=== PATIENT | male | born 1935 | race Hispanic/Latino ===

== ENCOUNTER 2016-12-18 01:47 | Inpatient (IN) | payer MEDICARE ==
[2016-12-18 01:47] VITALS: BMI 30.2
--- NOTE | 2016-12-18 02:17 | C.PDOC ---
History Of Present Illness 81 Y/O MALE BROUGHT IN BY EMS AFTER SUSTAINED FALL AT HOME AT 1900 LAST NIGHT. PT NOTES HE WAS ABLE TO GET UP AFTER SEVERAL HOURS. DENIES HEAD INJURY OR LOC. REPORTS ABRASION TO RIGHT ELBOW. ALSO C/O PRODUCTIVE COUGH FOR 3 DAYS. DENIES FEVER, CHILLS, SOB, CHEST PAIN, NEW WEAKNESS/NUMBNESS, OR OTHER ASSOC SX. DENIES ANY PAIN AT PRESENT. - HPI Time Seen by Provider: 12/18/16 02:11 Chief Complaint (Nursing): Weakness/Neurological Deficit History Per: Patient History/Exam Limitations: no limitations Onset/Duration Of Symptoms: Hrs, Days Location Of Injury: Right: Elbow Recent travel outside of the [place]: No Past Medical History Reviewed: Historical Data, Nursing Documentation, Vital Signs Vital Signs: Last Vital Signs Temp 97.8 F 12/18/16 01:53 Pulse 81 12/18/16 01:53 Resp 18 12/18/16 01:53 BP 161/87 H 12/18/16 01:53 Pulse Ox 93 L 12/18/16 03:09 - Medical History PMH: Anxiety, Benign Prostatic Hyperplasia, CAD, Depression, Diverticulitis, HTN , Hypercholesterolemia, Kidney Stones, Malignancy (Prostate) Surgical History: CABG, Pacemaker (2014) Family History: States: Unknown Family Hx - Social History Hx Tobacco Use: No Hx Alcohol Use: Yes Hx Substance Use: No - Immunization History Hx Tetanus Toxoid Vaccination: No Hx Influenza Vaccination: No Hx Pneumococcal Vaccination: No Review Of Systems Except As Marked, All Systems Reviewed And Found Negative. Constitutional: Negative for: Fever, Chills ENT: Negative for: Throat Pain Respiratory: Positive for: Cough. Negative for: Shortness of Breath Gastrointestinal: Negative for: Nausea, Vomiting, Abdominal Pain Skin: Positive for: Bruising (RIGHT ELBOW). Negative for: Rash Neurological: Negative for: Weakness, Numbness, Dizziness Physical Exam - Physical Exam Appears: Non-toxic, No Acute Distress Skin: Normal Color, Warm, Dry Head: Atraumatic, Normacephalic Eye(s): bilateral: Normal Inspection, PERRL, EOMI Ear(s): Bilateral: Normal Oral Mucosa: Moist Throat: Normal, No Erythema, No Exudate Neck: Supple Chest: Symmetrical Cardiovascular: Rhythm Regular Respiratory: No Accessory Muscle Use, No Rales, Rhonchi (LEFT LOWER LOB), No Wheezing Gastrointestinal/Abdominal: Soft, No Tenderness Back: Normal Inspection Extremity: Normal ROM, Capillary Refill (< 2 SEC. ) Neurological/Psych: Oriented x3, Normal Speech, Normal Cognition ED Course And Treatment - Laboratory Results Result Diagrams: 12/18/16 02:29 12/18/16 02:29 ECG: Interpreted By Me ECG Rhythm: R BBB ECG Interpretation: Abnormal (CHANGED FROM 2016) O2 Sat by Pulse Oximetry: 93 Pulse Ox Interpretation: Abnormal - Radiology CXR: Interpreted by Me CXR Interpretation: Yes: Other (CHF) Progress - Re-Evaluation Re-evaluation Note: 12/18/16 02:17 EKG, CXR, BLOODWORK ORDERED. PELVIS XR ORDERED. - Data Reviewed Data Reviewed: Lab, Diagnostic imaging, EKG, Old records Disposition Counseled Patient/Family Regarding: Studies Performed, Diagnosis - Disposition Disposition: HOSPITALIZED Disposition Time: : Condition: STABLE - POA Present On Arrival: None - Clinical Impression Clinical Impression: CHF exacerbation, Pneumonia - Scribe Statement The provider has reviewed the documentation as recorded by the Nolvia Peter Provider Scribe Attestation: All medical record entries made by the Scribe were at my direction and personally dictated by me. I have reviewed the chart and agree that the record accurately reflects my personal performance of the history, physical exam, medical decision making, and the department course for this patient. I have also personally directed, reviewed, and agree with the discharge instructions and disposition. Decision To Admit - Pt Status Changed To: Hospital Disposition Of: Inpatient - Admit Certification Admit to Inpatient:: After my assessment, the patient will require hospitalization for at least two midnights. This is because of the severity of symptoms shown, intensity of services needed, and/or the medical risk in this patient being treated as an outpatient. - InPatient: Physician Admission Certification: I certify that this patient requires 2 or more midnights of care for the following reason:: SEE NOTE - . Bed Request Type: Telemetry Admitting Physician: Ino Chu Patient Diagnosis: CHF exacerbation, Pneumonia
[2016-12-18 02:36] LABS: BASO # 0.1 K/uL (0.0-0.2); BASO % 0.3 % (0.0-2.0); HEMATOCRIT 45.9 % (35.0-51.0); LYMPH # 0.8 K/uL (1.0-4.3); LYMPH % 4.3 % (20.0-40.0); MEAN CELL VOLUME 87.3 fL (80.0-94.0); MEAN CORPUSCULAR HEMOGLOBIN 28.7 pg (27.0-31.0); MEAN CORPUSCULAR HGB CONC 32.9 g/dL (33.0-37.0); MEAN PLATELET VOLUME 8.5 fL (7.2-11.7); MONO # 2.1 K/uL (0.0-0.8); MONO % 11.5 % (0.0-10.0); PLATELET COUNT 132 K/uL (130-400); RED CELL DISTRIBUTION WIDTH 14.3 % (11.5-14.5); WHITE BLOOD COUNT 17.9 K/uL (4.8-10.8)
[2016-12-18 02:40] LABS: CHLORIDE 101 mmol/L (98-107)
[2016-12-18 02:41] LABS: POTASSIUM 3.7 mmol/L (3.6-5.2); SODIUM 138 mmol/L (132-148)
[2016-12-18 02:43] LABS: GFR AFRICAN-AMERICAN > 60
[2016-12-18 02:44] LABS: ALB/GLOB RATIO 1.2 (1.0-2.1); ALKALINE PHOSPHATASE 64 U/L (38-126); ALT/SGPT 46 U/L (21-72); AST/SGOT 118 U/L (17-59); BILIRUBIN,TOTAL 1.6 mg/dL (0.2-1.3); BLOOD UREA NITROGEN 20 mg/dL (9-20); CALCIUM 8.5 mg/dl (8.6-10.4); CARBON DIOXIDE 22 mmol/L (22-30); GLUCOSE,RANDOM 132 mg/dL (75-110); TOTAL PROTEIN 6.9 g/dL (6.3-8.3)
[2016-12-18] MEDS ORDERED: cefTRIAXone IV 1 gm in Dextros 50 ML IV STA (03:29)
[2016-12-18] MEDS ORDERED: Azithromycin 500 MG in Sodium Chloride 0.9% 250 ML IV STA (03:29)
[2016-12-18] MEDS ORDERED: cefTRIAXone IV 1 gm in Dextros 50 ML IVPB ONE (03:39)
[2016-12-18 03:40] LABS: GRANULAR CAST 10 /lpf (0-1); RBC URINE 23 /hpf (0-3); URINE BACTERIA RARE (<OCC); URINE BILIRUBIN NEGATIVE (NEGATIVE); URINE BLOOD 3+ (NEGATIVE); URINE COLOR Yellow (YELLOW); URINE GLUCOSE (UA) NORMAL (Normal); URINE KETONE 1+ mg/dL (NEGATIVE); URINE LEUKOCYTE ESTERASE NEG Leu/uL (Negative); URINE PROTEIN 2+ mg/dL (NEGATIVE); URINE UROBILINOGEN NORMAL mg/dL (0.2-1.0); WBC URINE 3 /hpf (0-5)
[2016-12-18] MEDS ORDERED: Azithromycin 500mg/250ML NS 500 MG/250 ML BAG IVPB ONE (03:40)
[2016-12-18 04:01] LABS: VENOUS BLOOD GAS BASE EXCESS -0.3 mmol/L (0.0-2.0); VENOUS BLOOD GAS PCO2 32 mmHg (40-60); VENOUS BLOOD PH 7.46 (7.32-7.43)
[2016-12-18 04:14] LABS: NEUTROPHIL 83 % (50-75); TOTAL CELLS COUNTED 100
[2016-12-18 05:56] LABS: VENOUS BLOOD GAS BASE EXCESS -2.6 mmol/L (0.0-2.0); VENOUS BLOOD GAS PCO2 29 mmHg (40-60); VENOUS BLOOD PH 7.45 (7.32-7.43)
[2016-12-18] MEDS ORDERED: Moxifloxacin IV 400mg/250ml NS 400 MG/250 ML BAG IVPB SCH (07:00)
--- NOTE | 2016-12-18 08:35 | RAD ---
PROCEDURE: Radiographs of the pelvis. HISTORY: PAIN COMPARISON: None. FINDINGS: BONES: Pelvic Bones: Osseous whiskering productive hypertrophic changes along each lateral iliac crest and each greater trochanter. Hips: Osteo arthrosis bilateral JOINTS: Sacroiliac Joints: Unremarkable. Pubic Symphysis: Unremarkable. OTHER FINDINGS: Atherosclerotic vascular calcifications. Bilateral inferior facet arthrosis lumbar osteophytosis. Prostatic radiation seeds IMPRESSION: No fracture, radiolucent or blastic lesion appreciated. Degenerative changes. Prostatic radiation seeds
--- NOTE | 2016-12-18 08:49 | RAD ---
HISTORY: Pneumonia COMPARISON: Chest x-ray performed 08/13/15 TECHNIQUE: Chest, one view. FINDINGS: Examination limited by habitus. LUNGS: Mild interstitial prominence may reflect infection or edema. Right perihilar prominence may reflect infiltrate. Please note that chest x-ray has limited sensitivity for the detection of pulmonary masses. PLEURA: No significant pleural effusion identified. No definite pneumothorax . CARDIOVASCULAR: Dual lead left-sided AICD. Heart size borderline enlarged. Atherosclerotic calcifications of the aorta. OSSEOUS STRUCTURES: Degenerative changes of the spine and shoulders. Acromioclavicular arthropathy. VISUALIZED UPPER ABDOMEN: Unremarkable. OTHER FINDINGS: None. IMPRESSION: Mild interstitial prominence may reflect infection or edema. Right perihilar prominence may reflect infiltrate.
[2016-12-18] MEDS ORDERED: Home Med 1 UNIT (Pravastatin Sodium [Pravastatin Sodium] 40 MG) PO SCH (10:00)
[2016-12-18] MEDS ORDERED: Home Med 1 UNIT (Cholecalciferol (Vitamin D3) [Vitamin D3] 2,000 UNIT) PO SCH (10:00)
[2016-12-18] MEDS ORDERED: Ergocalciferol 50,000 Intl Units Cap PO SCH (10:00)
--- NOTE | 2016-12-18 10:25 | CP.PCM.PN ---
Subjective - Date & Time of Evaluation Date of Evaluation: 12/18/16 Time of Evaluation: 09:00 - Subjective Subjective: Medicine Progress Note- Dr. Chu's Service: Patient seen and examined at bedside this AM. Patient admitted overnight s/p fall. He does not know how he fell or why, and states "it's like my legs were pulled from under me". He denies LOC or hitting his head and states he fell backwards holding himself up with his elbows. Patient seen and examined at bedside this morning and is alert and oriented X 3. Patient is originally from [place]. Patient admits to cough and sick contacts. He is also reporting left sided pain where he hit himself during fall. Denies SOB, chest pain, dizziness. Objective - Vital Signs/Intake and Output Vital Signs (last 24 hours): Temp Pulse Resp BP Pulse Ox 98.6 F 60 0 L 122/63 94 L 12/18/16 08:10 12/18/16 08:10 12/18/16 08:10 12/18/16 08:10 12/18/16 08:10 - Medications Medications: Current Medications Amiodarone HCl (Cordarone) 200 mg PO DAILY [facility] Ascorbic Acid (Vitamin C 500 Mg Tab) 500 mg PO DAILY [facility] Aspirin (Aspirin Chewable) 81 mg PO DAILY [facility] Ergocalciferol (Drisdol 50,000 Intl Units Cap) 1 cap PO QWK [facility] Furosemide (Lasix) 40 mg IVP DAILY [facility] Moxifloxacin HCl (Avelox Iv 400mg/250ml Ns) 400 mg in 250 mls @ 167 mls/hr IVPB Q24H [facility] Lisinopril (Zestril) 20 mg PO DAILY [facility] Metoprolol Succinate (Toprol Xl) 25 mg PO DAILY [facility] Neomycin/Polymyxin/Bacitracin (Neosporin Triple Antibiotic Oint) 1 gm TOP DAILY [facility] Rosuvastatin Calcium (Crestor) 5 mg PO DAILY [facility] Tamsulosin HCl (Flomax) 0.4 mg PO DAILY [facility] - Constitutional Appears: No Acute Distress - Head Exam Head Exam: NORMAL INSPECTION, NORMOCEPHALIC - Eye Exam Eye Exam: EOMI, Normal appearance - ENT Exam ENT Exam: Mucous Membranes Moist - Neck Exam Neck Exam: Full ROM, Normal Inspection - Respiratory Exam Respiratory Exam: Clear to Ausculation Bilateral, NORMAL BREATHING PATTERN - Cardiovascular Exam Cardiovascular Exam: REGULAR RHYTHM, +S1, +S2 - GI/Abdominal Exam GI & Abdominal Exam: Soft. absent: Distended, Tenderness - Extremities Exam Extremities Exam: Full ROM, Normal Inspection - Back Exam Back Exam: NORMAL INSPECTION - Neurological Exam Neurological Exam: Alert, Awake, Oriented x3 - Psychiatric Exam Psychiatric exam: Normal Affect, Normal Mood - Skin Skin Exam: Normal Color, Warm Additional comments: Bilateral abrasion Assessment and Plan (1) Fall Assessment & Plan: Admit to telemetry. Pelvis X-ray: shows no fractures. Chest X-ray: shows no fractures. Mild interstitial prominence may reflect infection or edema. Right perihilar prominence may reflect infiltrate. f/u Head CT Cardio consult placed- Dr. Peralta consult placed. Dr. Gacria consulted for defibrillator evaluation. Status: Acute (2) Pneumonia Assessment & Plan: Chest X-ray: shows no fractures. Mild interstitial prominence may reflect infection or edema. Right perihilar prominence may reflect infiltrate. Avelox IVPB-DAY 1 Status: Acute (3) CHF exacerbation Assessment & Plan: Chest X-ray: shows no fractures. Mild interstitial prominence may reflect infection or edema. Right perihilar prominence may reflect infiltrate. BNP: 1490 Toprol XL 25 mg PO daily Lisinopril 20 mg PO daily Cordaone 200 mg PO daily Status: Acute (4) AICD (automatic cardioverter/defibrillator) present Assessment & Plan: Cardio consult placed- Dr. Peralta consult placed. Dr. Garcia consulted for defibrillator evaluation. Status: Acute (5) BPH without urinary obstruction Assessment & Plan: Flomax 0.4 mg PO daily Status: Acute (6) Prophylactic measure Assessment & Plan: Pepcid 20 mg PO BID SCDs Hold AC pending head CT results. Status: Acute - Assessment and Plan (Free Text) Assessment: All management as per Dr. Chu.
[2016-12-18] MEDS: Metoprolol Succinate 25 mg XL Tab PO SCH (10:34)
[2016-12-18 11:23] LABS: BASO % 0.3 % (0.0-2.0); EOS % 0.1 % (0.0-4.0); HEMATOCRIT 45.6 % (35.0-51.0); LYMPH # 1.5 K/uL (1.0-4.3); LYMPH % 9.7 % (20.0-40.0); MEAN CELL VOLUME 87.7 fL (80.0-94.0); MEAN CORPUSCULAR HEMOGLOBIN 28.7 pg (27.0-31.0); MEAN CORPUSCULAR HGB CONC 32.7 g/dL (33.0-37.0); MEAN PLATELET VOLUME 9.1 fL (7.2-11.7); MONO # 1.8 K/uL (0.0-0.8); MONO % 11.7 % (0.0-10.0); PLATELET COUNT 133 K/uL (130-400); RED CELL DISTRIBUTION WIDTH 14.2 % (11.5-14.5); WHITE BLOOD COUNT 15.5 K/uL (4.8-10.8)
[2016-12-18 11:34] LABS: CHLORIDE 100 mmol/L (98-107); POTASSIUM 3.4 mmol/L (3.6-5.2); SODIUM 138 mmol/L (132-148)
[2016-12-18 11:36] LABS: ALB/GLOB RATIO 1.2 (1.0-2.1); ALKALINE PHOSPHATASE 54 U/L (38-126); AST/SGOT 272 U/L (17-59); BILIRUBIN,TOTAL 1.4 mg/dL (0.2-1.3); CARBON DIOXIDE 25 mmol/L (22-30); GFR AFRICAN-AMERICAN > 60; TOTAL PROTEIN 6.6 g/dL (6.3-8.3)
[2016-12-18 11:37] LABS: ALT/SGPT 68 U/L (21-72); BLOOD UREA NITROGEN 22 mg/dL (9-20); GLUCOSE,RANDOM 108 mg/dL (75-110)
[2016-12-18] MEDS: Bacitracin/Neomycin/Polymyxin Oint(30GM) TOP SCH (12:49)
--- NOTE | 2016-12-18 13:20 | CT ---
PROCEDURE: CT HEAD WITHOUT CONTRAST. HISTORY: s/p fall COMPARISON: None available. TECHNIQUE: Axial computed tomography images were obtained through the head/brain without intravenous contrast. Radiation dose: Total exam DLP = 944.74 mGy-cm. This CT exam was performed using one or more of the following dose reduction techniques: Automated exposure control, adjustment of the mA and/or kV according to patient size, and/or use of iterative reconstruction technique. FINDINGS: HEMORRHAGE: No intracranial hemorrhage. BRAIN: Diffuse atrophy with prominence of the ventricles and sulci noted. No mass effect or edema. Intracranial atherosclerotic calcifications. Scattered periventricular and subcortical white matter hypodensities, which are nonspecific, but often seen with chronic microvascular ischemic disease. 3 mm probable chronic lacunar infarct, left basal ganglia. Please note that MRI with diffusion imaging is more sensitive in the detection of acute ischemic event. VENTRICLES: No hydrocephalus. CALVARIUM: Unremarkable. PARANASAL SINUSES: Mucosal thickening, bilateral maxillary sinuses. Extensive opacification of the ethmoid air cells. Mucosal thickening of the bilateral sphenoid sinuses. Mucosal thickening of the right frontal sinus. MASTOID AIR CELLS: Unremarkable as visualized. No inflammatory changes. OTHER FINDINGS: None. IMPRESSION: No acute intracranial pathology identified. Nonspecific white matter changes. 3 mm probable chronic lacunar infarct, left basal ganglia. Generalized atrophy. Mucosal thickening, bilateral maxillary sinuses. Extensive opacification of the ethmoid air cells. Mucosal thickening of the bilateral sphenoid sinuses. Mucosal thickening of the right frontal sinus. Correlate clinically for sinusitis.
--- NOTE | 2016-12-18 13:38 | CP.PCM.CON ---
<Antoine Hammonds - Last Filed: 12/18/16 18:18> History of Present Illness - History of Present Illness History of Present Illness: Cardiology Consultation Note Dr. Garcia CC: "Pre-syncopal symptoms" HPI: This is a 81 year old male with past medical history of CAD (s/p CABG 2013) , Hypertension, ICD placement in 2013, hypercholesterolemia, and BPH/prostate cancer presenting for cardiac evaluation of presyncope and pacemaker interrogation. The patient came to the hospital at 1 a.m. 12/18 after a fall at 7 p.m. that day. He reports no loss of consciousness or head impact during the fall. Patient denies chest pain, palpitations, shortness of breath, and orthopnea. Patient states that he is independent in all ADLs and IADLs and can walk long distances and dress himself without getting SOB. [employer] pacemaker and defibrillator placed in 2013. The patient denies fever, chills, headache, chest pain, shortness of breath, abdominal pain, N/V/D/C, changes in bowel/bladder, and extremity weakness. Today, an echocardiogram was preformed. A preliminary read shows 56% EF. Prior echo on 11/16/13 revealed EF 56% and a grade I relaxation abnormality. An EKG preformed on 01/15/16 shows AV dual paced rhythm with prolonged DC/QTc intervals and a physiologic axis. Past medical history: BPH/Prostate Cancer, CAD, hypertension, hypercholesteremia Social: 27 pack year smoker, quit 27 years ago. Denies drinking and drug use. Surgeries: CABG 2013, pacemaker 2013 Hospitalizations: Misfiring defibrillator 2015 Family history noncontributory Review of Systems - Constitutional Constitutional: Lethargy. absent: Chills, Fatigue, Fever, Headache - EENT Eyes: absent: Blurred Vision, Change in Vision Ears: absent: Ear Discharge, Tinnitus Nose/Mouth/Throat: absent: Nose Pain, Facial Pain, Neck Pain - Cardiovascular Cardiovascular: Syncope (pre-syncopal symptoms). absent: Chest Pain, Chest Pain at Rest, Chest Pain with Activity, Dyspnea, Dyspnea on Exertion, Edema, Leg Edema, Pedal Edema, Rapid Heart Rate - Respiratory Respiratory: Cough. absent: Dyspnea, Dyspnea on Exertion, Pain on Inspiration, Pain with Coughing - Gastrointestinal Gastrointestinal: absent: Abdominal Pain, Change in Bowel Habits, Constipation, Diarrhea, Fecal Incontinence, Nausea, Vomiting - Genitourinary Genitourinary: absent: Change in Urinary Stream, Difficulty Urinating - Musculoskeletal Musculoskeletal: Joint Swelling (due to fall on knees). absent: Stiffness, Tingling - Integumentary Integumentary: absent: Lesions, Rash, Wounds - Neurological Neurological: Syncope (pre-syncopal symptoms ), Tingling. absent: Headaches Additional comments: hands bilaterally - Endocrine Endocrine: absent: Cold Intolorance, Heat Intolorance, Polydipsia, Polyphagia Past Patient History - Infectious Disease Hx of Infectious Diseases: None - Past Medical History & Family History Past Medical History?: Yes - Past Social History Smoking Status: Former Smoker - CARDIAC Hx Hypercholesterolemia: Yes Hx Hypertension: Yes Hx Pacemaker: Yes (2013) - RENAL Hx Kidney Stones: Yes - MUSCULOSKELETAL/RHEUMATOLOGICAL Hx Falls: No - GASTROINTESTINAL Hx Diverticulitis: Yes - GENITOURINARY/GYNECOLOGICAL Hx Prostate Cancer: Yes (tx with radiation) - PSYCHIATRIC Hx Anxiety: Yes Hx Depression: Yes Hx Substance Use: No - SURGICAL HISTORY Hx Coronary Artery Bypass Graft: Yes - ANESTHESIA Hx Anesthesia: Yes Hx Anesthesia Reactions: No Hx Malignant Hyperthermia: No Meds Allergies/Adverse Reactions: Allergies Allergy/AdvReac Type Severity Reaction Status Date / Time No Known Allergies Allergy Verified 01/27/16 15:37 - Medications Medications: Current Medications Amiodarone HCl (Cordarone) 200 mg PO DAILY [facility] Last Admin: 12/18/16 10:34 Dose: 200 mg Ascorbic Acid (Vitamin C 500 Mg Tab) 500 mg PO DAILY [facility] Last Admin: 12/18/16 10:34 Dose: 500 mg Aspirin (Aspirin Chewable) 81 mg PO DAILY [facility] Last Admin: 12/18/16 10:34 Dose: 81 mg Ergocalciferol (Drisdol 50,000 Intl Units Cap) 1 cap PO QWK [facility] Last Admin: 12/18/16 10:34 Dose: 1 cap Famotidine (Pepcid) 20 mg PO BID [facility] Furosemide (Lasix) 40 mg IVP DAILY [facility] Last Admin: 12/18/16 10:35 Dose: 40 mg Moxifloxacin HCl (Avelox Iv 400mg/250ml Ns) 400 mg in 250 mls @ 167 mls/hr IVPB Q24H [facility] Last Admin: 12/18/16 11:23 Dose: 167 mls/hr Lisinopril (Zestril) 20 mg PO DAILY [facility] Metoprolol Succinate (Toprol Xl) 25 mg PO DAILY [facility] Last Admin: 12/18/16 10:34 Dose: 25 mg Neomycin/Polymyxin/Bacitracin (Neosporin Triple Antibiotic Oint) 1 gm TOP DAILY [facility] Last Admin: 12/18/16 12:49 Dose: 1 applic Rosuvastatin Calcium (Crestor) 5 mg PO DAILY [facility] Last Admin: 12/18/16 11:45 Dose: 5 mg Tamsulosin HCl (Flomax) 0.4 mg PO DAILY [facility] Last Admin: 12/18/16 10:35 Dose: Not Given Physical Exam - Constitutional Appears: Non-toxic, No Acute Distress - Head Exam Head Exam: ATRAUMATIC, NORMAL INSPECTION, NORMOCEPHALIC - Eye Exam Eye Exam: Normal appearance. absent: Nystagmus Pupil Exam: NORMAL ACCOMODATION - ENT Exam ENT Exam: Mucous Membranes Moist - Neck Exam Neck exam: Positive for: Full Rom, Normal Inspection. Negative for: Lymphadenopathy, Tenderness - Respiratory Exam Respiratory Exam: Decreased Breath Sounds (b/l bases), Clear to Auscultation Bilateral, NORMAL BREATHING PATTERN. absent: Accessory Muscle Use, Rales, Rhonchi, Wheezes - Cardiovascular Exam Cardiovascular Exam: REGULAR RHYTHM, RRR, +S1, +S2. absent: Bradycardia, Tachycardia, Diastolic murmur, Irregular Rhythm, JVD, Rubs, Systolic Murmur - GI/Abdominal Exam GI & Abdominal Exam: Normal Bowel Sounds, Soft. absent: Distended, Firm, Guarding, Tenderness - Extremities Exam Extremities exam: Positive for: joint swelling, normal inspection, pedal pulses present. Negative for: calf tenderness, pedal edema Additional comments: knees bilaterally - Back Exam Back exam: NORMAL INSPECTION. absent: CVA tenderness (L), CVA tenderness (R) - Neurological Exam Neurological exam: Alert, CN II-XII Intact, Oriented x3 - Psychiatric Exam Psychiatric exam: Normal Affect, Normal Mood - Skin Skin Exam: Dry, Intact, Normal Color Results - Vital Signs Recent Vital Signs: Last Vital Signs Temp 98.6 F 12/18/16 08:10 Pulse 60 12/18/16 08:10 Resp 0 L 12/18/16 08:10 BP 122/63 12/18/16 10:35 Pulse Ox 94 L 12/18/16 08:10 - Labs Result Diagrams: 12/18/16 11:14 12/18/16 11:14 Labs: Laboratory Results - last 24 hr 12/18/16 12/18/16 12/18/16 03:53 05:46 11:14 WBC 15.5 H RBC 5.20 Hgb 14.9 Hct 45.6 MCV 87.7 MCH 28.7 MCHC 32.7 L RDW 14.2 Plt Count 133 MPV 9.1 Neut % (Auto) 78.2 H Lymph % (Auto) 9.7 L Deuel % (Auto) 11.7 H Eos % (Auto) 0.1 Baso % (Auto) 0.3 Neut # 12.2 H Lymph # 1.5 Deuel # 1.8 H Eos # 0.0 Baso # 0.0 Puncture Site Na pO2 60 H 66 H Darian Test Na VBG pH 7.46 H 7.45 H VBG pCO2 32 L 29 L VBG HCO3 24.5 22.8 VBG Total CO2 21.1 L VBG O2 Sat (Calc) 92.7 H 95.3 H VBG Base Excess -0.3 L -2.6 L VBG Potassium 2.5 L* Sodium 140.0 Chloride 110.0 H Glucose 101 Lactate 1.1 Crit Value Called To Farheen zimmerman rn Crit Value Called By Rebecca guerrier rt Crit Value Read Back Y Blood Gas Notified Time 558 Potassium Carbon Dioxide Anion Gap BUN Creatinine Est GFR ( Amer) Est GFR (Non-Af Amer) Random Glucose Calcium Total Bilirubin AST ALT Alkaline Phosphatase Total Protein Albumin Globulin Albumin/Globulin Ratio Venous Blood Potassium 2.5 L* 12/18/16 11:14 WBC RBC Hgb Hct MCV MCH MCHC RDW Plt Count MPV Neut % (Auto) Lymph % (Auto) Deuel % (Auto) Eos % (Auto) Baso % (Auto) Neut # Lymph # Deuel # Eos # Baso # Puncture Site pO2 Darian Test VBG pH VBG pCO2 VBG HCO3 VBG Total CO2 VBG O2 Sat (Calc) VBG Base Excess VBG Potassium Sodium 138 Chloride 100 Glucose Lactate Crit Value Called To Crit Value Called By Crit Value Read Back Blood Gas Notified Time Potassium 3.4 L Carbon Dioxide 25 Anion Gap 16 BUN 22 H Creatinine 1.0 Est GFR ( Amer) > 60 Est GFR (Non-Af Amer) > 60 Random Glucose 108 Calcium 8.0 L Total Bilirubin 1.4 H AST 272 H D ALT 68 Alkaline Phosphatase 54 Total Protein 6.6 Albumin 3.5 Globulin 3.1 Albumin/Globulin Ratio 1.2 Venous Blood Potassium Assessment & Plan (1) Syncope, near Assessment and Plan: Interrogate ICD ([employer]) at Bedside Order Orthostatics vital signs with HR Troponins X 3 (q8 hours) with EKGs Telemetric Monitoring Nuclear Stress Test in AM Troponin elevated 0.1310. Continue to trend. If troponins continue to rise cancel nuclear stress test and will go for cath. if trops stay same, nuclear stress in am. Dr. Peralta will preform either stress test or Cath. NPO after midnight 12/18/16 CXR- Left sided ICD wires traced to right atrium unchanged from prior film (08/13/15). Mild interstitial prominence may reflect infection or edema. Right perihilar prominence may reflect infiltrate. 12/18/16 Echo- A preliminary read shows 56% EF 11/16/13 Echo- revealed EF 56% and a grade I relaxation abnormality. 01/15/16 EKG- AV dual paced rhythm with prolonged DC/QTc intervals and a physiologic axis. Case Discussed with Dr. Radha Hammonds PGY1 Status: Acute - Date & Time Date: 12/18/16 Time: 15:59 <Milvia Garcia - Last Filed: 01/15/17 10:15> Results - Vital Signs Recent Vital Signs: Last Vital Signs Temp 98 F 12/20/16 07:00 Pulse 50 L 12/20/16 07:00 Resp 20 12/20/16 07:00 BP 132/70 12/20/16 09:05 Pulse Ox 96 12/20/16 07:00 - Labs Result Diagrams: 12/20/16 07:01 12/20/16 07:01 Attending/Attestation - Attestation I have personally seen and examined this patient.: Yes I have fully participated in the care of the patient.: Yes I have reviewed all pertinent clinical information: Yes Notes (Text): 01/15/17 10:14 Will interrogate ICD may need cath vs stress
[2016-12-18 13:42] LABS: NEUTROPHIL 78 % (50-75); TOTAL CELLS COUNTED 100
[2016-12-18 16:23] VITALS: RESP 20
--- NOTE | 2016-12-18 17:34 | CARD ---
APPROVED REPORT EXAM: Two-dimensional and M-mode echocardiogram with Doppler and color Doppler. Other Information Quality : GoodRhythm : NSR INDICATION CAD Congestive Heart Failure Surgery/Intervention Pacemaker: CABG: RISK FACTORS Hypertension Hyperlipidemia M-Mode DIMENSIONS RVDd2.69 (2.1-3.2cm)Left Atrium (MM)4.84 (2.5-4.0cm) IVSd1.25 (0.7-1.1cm)Aortic Root3.51 (2.2-3.7cm) LVDd5.78 (4.0-5.6cm)Aortic Cusp Exc.1.76 (1.5-2.0cm) PWd1.13 (0.7-1.1cm)FS (%) 30 % LVDs4.06 (2.0-3.8cm)LVEF (%)56 (>50%) Aortic Valve AoV Peak Xrwyizzu546.4cm/Ann Peak GR.11mmHg Mitral Valve MV E Wlwxgjkl12.7cm/sMV A Lksncqda36.3cm/sE/A ratio0.7 TDI E/Lateral E'0.0E/Medial E'0.0 Tricuspid Valve TR Peak [id number]/sTR Peak Gr.[id number] LEFT VENTRICLE There is normal left ventricular wall thickness. The left ventricular systolic function is normal. The left ventricular ejection fraction is within the normal range. There is mild hypokinesis in the mid-inferior wall suggestive of coronary heart disease. Transmitral Doppler flow pattern is Grade I-abnormal relaxation pattern. RIGHT VENTRICLE The right ventricle is normal size. The right ventricular systolic function is normal. There is a pacemaker lead in the right ventricle. ATRIA The left atrium is mildly dilated. The right atrium is borderline dilated. A pacemaker is seen in the right atrium. AORTIC VALVE The aortic valve is normal in structure. No aortic regurgitation is present. MITRAL VALVE The mitral valve is normal in structure. There is no mitral valve regurgitation noted. TRICUSPID VALVE The tricuspid valve is normal in structure. There is trace to mild tricuspid regurgitation. PULMONIC VALVE There is trace pulmonic valvular regurgitation. GREAT VESSELS The aortic root is normal in size. The IVC was not well visualized. PERICARDIAL EFFUSION There is no pericardial effusion. <Conclusion> The left ventricular systolic function is normal. There is mild hypokinesis in the mid-inferior wall suggestive of coronary heart disease. Transmitral Doppler flow pattern is Grade I-abnormal relaxation pattern. The right ventricular systolic function is normal. The left atrium is mildly dilated. Pacemaker wires seen in the right heart. There is no pericardial effusion.
[2016-12-18] MEDS ORDERED: Potassium Chloride 20 mEq ER Tab PO ONE (19:55)
--- NOTE | 2016-12-18 21:47 | CP.PCM.CON ---
History of Present Illness - History of Present Illness History of Present Illness: Patient seen and evaluated Dyspnea and dizziness Trops 0.13 Stress test in am Past Patient History - Infectious Disease Hx of Infectious Diseases: None - Past Medical History & Family History Past Medical History?: Yes - Past Social History Smoking Status: Former Smoker - CARDIAC Hx Hypercholesterolemia: Yes Hx Hypertension: Yes Hx Pacemaker: Yes (2013) - PULMONARY Hx Respiratory Disorders: No - NEUROLOGICAL Hx Neurological Disorder: No - HEENT Hx HEENT Problems: No - RENAL Hx Kidney Stones: Yes - ENDOCRINE/METABOLIC Hx Endocrine Disorders: No - HEMATOLOGICAL/ONCOLOGICAL Hx Blood Disorders: No - INTEGUMENTARY Hx Dermatological Problems: No - MUSCULOSKELETAL/RHEUMATOLOGICAL Hx Falls: No - GASTROINTESTINAL Hx Diverticulitis: Yes - GENITOURINARY/GYNECOLOGICAL Hx Prostate Cancer: Yes (tx with radiation) - PSYCHIATRIC Hx Anxiety: Yes Hx Depression: Yes Hx Substance Use: No - SURGICAL HISTORY Hx Coronary Artery Bypass Graft: Yes - ANESTHESIA Hx Anesthesia: Yes Hx Anesthesia Reactions: No Hx Malignant Hyperthermia: No Meds Allergies/Adverse Reactions: Allergies Allergy/AdvReac Type Severity Reaction Status Date / Time No Known Allergies Allergy Verified 01/27/16 15:37 - Medications Medications: Current Medications Amiodarone HCl (Cordarone) 200 mg PO DAILY [facility] Last Admin: 12/18/16 10:34 Dose: 200 mg Ascorbic Acid (Vitamin C 500 Mg Tab) 500 mg PO DAILY [facility] Last Admin: 12/18/16 10:34 Dose: 500 mg Aspirin (Aspirin Chewable) 81 mg PO DAILY [facility] Last Admin: 12/18/16 10:34 Dose: 81 mg Ergocalciferol (Drisdol 50,000 Intl Units Cap) 1 cap PO QWK [facility] Last Admin: 12/18/16 10:34 Dose: 1 cap Famotidine (Pepcid) 20 mg PO BID [facility] Last Admin: 12/18/16 20:44 Dose: 20 mg Furosemide (Lasix) 40 mg IVP DAILY [facility] Last Admin: 12/18/16 10:35 Dose: 40 mg Moxifloxacin HCl (Avelox Iv 400mg/250ml Ns) 400 mg in 250 mls @ 167 mls/hr IVPB Q24H [facility] Last Admin: 12/18/16 11:23 Dose: 167 mls/hr Lisinopril (Zestril) 20 mg PO DAILY [facility] Metoprolol Succinate (Toprol Xl) 25 mg PO DAILY [facility] Last Admin: 12/18/16 10:34 Dose: 25 mg Neomycin/Polymyxin/Bacitracin (Neosporin Triple Antibiotic Oint) 1 gm TOP DAILY [facility] Last Admin: 12/18/16 12:49 Dose: 1 applic Rosuvastatin Calcium (Crestor) 5 mg PO DAILY [facility] Last Admin: 12/18/16 11:45 Dose: 5 mg Tamsulosin HCl (Flomax) 0.4 mg PO DAILY [facility] Last Admin: 12/18/16 10:35 Dose: Not Given Results - Vital Signs Recent Vital Signs: Last Vital Signs Temp 98 F 12/18/16 15:45 Pulse 56 L 12/18/16 15:45 Resp 20 12/18/16 15:45 BP 99/58 L 12/18/16 15:45 Pulse Ox 93 L 12/18/16 15:45 - Labs Result Diagrams: 12/18/16 11:14 12/18/16 11:14 Labs: Laboratory Results - last 24 hr 12/18/16 12/18/16 12/18/16 03:53 05:46 11:14 WBC 15.5 H RBC 5.20 Hgb 14.9 Hct 45.6 MCV 87.7 MCH 28.7 MCHC 32.7 L RDW 14.2 Plt Count 133 MPV 9.1 Neut % (Auto) 78.2 H Lymph % (Auto) 9.7 L Martin % (Auto) 11.7 H Eos % (Auto) 0.1 Baso % (Auto) 0.3 Neut # 12.2 H Lymph # 1.5 Martin # 1.8 H Eos # 0.0 Baso # 0.0 Neutrophils % (Manual) 78 H Band Neutrophils % 5 H Lymphocytes % (Manual) 7 L Monocytes % (Manual) 10 Platelet Estimate Normal RBC Morphology Normal Puncture Site Na pO2 60 H 66 H Darian Test Na VBG pH 7.46 H 7.45 H VBG pCO2 32 L 29 L VBG HCO3 24.5 22.8 VBG Total CO2 21.1 L VBG O2 Sat (Calc) 92.7 H 95.3 H VBG Base Excess -0.3 L -2.6 L VBG Potassium 2.5 L* Sodium 140.0 Chloride 110.0 H Glucose 101 Lactate 1.1 Crit Value Called To Farheen cavello rn Crit Value Called By Rebecca guerrier rt Crit Value Read Back Y Blood Gas Notified Time 558 Potassium Carbon Dioxide Anion Gap BUN Creatinine Est GFR ( Amer) Est GFR (Non-Af Amer) Random Glucose Calcium Total Bilirubin AST ALT Alkaline Phosphatase Total Creatine Kinase CK-MB (Mass) Troponin I, Quant Total Protein Albumin Globulin Albumin/Globulin Ratio Venous Blood Potassium 2.5 L* 12/18/16 12/18/16 11:14 17:12 WBC RBC Hgb Hct MCV MCH MCHC RDW Plt Count MPV Neut % (Auto) Lymph % (Auto) Martin % (Auto) Eos % (Auto) Baso % (Auto) Neut # Lymph # Martin # Eos # Baso # Neutrophils % (Manual) Band Neutrophils % Lymphocytes % (Manual) Monocytes % (Manual) Platelet Estimate RBC Morphology Puncture Site pO2 Darian Test VBG pH VBG pCO2 VBG HCO3 VBG Total CO2 VBG O2 Sat (Calc) VBG Base Excess VBG Potassium Sodium 138 Chloride 100 Glucose Lactate Crit Value Called To Crit Value Called By Crit Value Read Back Blood Gas Notified Time Potassium 3.4 L Carbon Dioxide 25 Anion Gap 16 BUN 22 H Creatinine 1.0 Est GFR ( Amer) > 60 Est GFR (Non-Af Amer) > 60 Random Glucose 108 Calcium 8.0 L Total Bilirubin 1.4 H AST 272 H D ALT 68 Alkaline Phosphatase 54 Total Creatine Kinase 73254 H CK-MB (Mass) 5.57 H Troponin I, Quant 0.1310 H* Total Protein 6.6 Albumin 3.5 Globulin 3.1 Albumin/Globulin Ratio 1.2 Venous Blood Potassium
[2016-12-19] MEDS: Metoprolol Succinate 25 mg XL Tab PO SCH (10:49)
[2016-12-19 11:22] LABS: BASO % 0.1 % (0.0-2.0); EOS # 0.1 K/uL (0.0-0.7); EOS % 0.6 % (0.0-4.0); HEMATOCRIT 43.8 % (35.0-51.0); LYMPH # 1.5 K/uL (1.0-4.3); LYMPH % 15.9 % (20.0-40.0); MEAN CELL VOLUME 87.6 fL (80.0-94.0); MEAN CORPUSCULAR HGB CONC 33.2 g/dL (33.0-37.0); MEAN PLATELET VOLUME 8.9 fL (7.2-11.7); MONO # 1.2 K/uL (0.0-0.8); MONO % 12.6 % (0.0-10.0); RED CELL DISTRIBUTION WIDTH 14.3 % (11.5-14.5); WHITE BLOOD COUNT 9.7 K/uL (4.8-10.8)
[2016-12-19 11:42] LABS: CHLORIDE 101 mmol/L (98-107)
[2016-12-19 11:43] LABS: POTASSIUM 3.9 mmol/L (3.6-5.2); SODIUM 137 mmol/L (132-148)
[2016-12-19 11:45] LABS: ALB/GLOB RATIO 1.1 (1.0-2.1); AST/SGOT 295 U/L (17-59); CARBON DIOXIDE 23 mmol/L (22-30); GFR AFRICAN-AMERICAN > 60; TOTAL PROTEIN 6.5 g/dL (6.3-8.3)
[2016-12-19 11:46] LABS: ALKALINE PHOSPHATASE 52 U/L (38-126); ALT/SGPT 75 U/L (21-72); BLOOD UREA NITROGEN 29 mg/dL (9-20); CALCIUM 8.4 mg/dl (8.6-10.4); GLUCOSE,RANDOM 144 mg/dL (75-110); MAGNESIUM 2.2 mg/dL (1.6-2.3)
--- NOTE | 2016-12-19 12:05 | CARD ---
APPROVED REPORT EKG Measurement Heart [id number] <Conclusion> Normal sinus rhythm Right bundle branch block Abnormal ECG
[2016-12-19] MEDS: Moxifloxacin IV 400mg/250ml NS 400 MG/250 ML BAG IVPB SCH (12:07)
--- NOTE | 2016-12-19 14:06 | CP.PCM.PN ---
Subjective - Date & Time of Evaluation Date of Evaluation: 12/19/16 Time of Evaluation: 09:00 - Subjective Subjective: Medicine Progress Note- Dr. Chu's Service: Patient seen and examined at bedside this morning. Patient has no chest pain, SOB, fevers, chills today. He is scheduled for 2nd phase of stress test this AM. Patient with one elevated troponin overnight. However, patient denies chest pain overnight or any acute distress. Objective - Vital Signs/Intake and Output Vital Signs (last 24 hours): Temp Pulse Resp BP Pulse Ox 98.1 F 50 L 20 150/75 95 12/19/16 08:44 12/19/16 08:44 12/19/16 08:44 12/19/16 12:09 12/19/16 08:44 - Medications Medications: Current Medications Amiodarone HCl (Cordarone) 200 mg PO DAILY [facility] Last Admin: 12/19/16 10:49 Dose: 200 mg Ascorbic Acid (Vitamin C 500 Mg Tab) 500 mg PO DAILY [facility] Last Admin: 12/19/16 10:52 Dose: 500 mg Aspirin (Aspirin Chewable) 81 mg PO DAILY [facility] Last Admin: 12/19/16 10:51 Dose: 81 mg Ergocalciferol (Drisdol 50,000 Intl Units Cap) 1 cap PO QWK [facility] Last Admin: 12/18/16 10:34 Dose: 1 cap Famotidine (Pepcid) 20 mg PO BID [facility] Last Admin: 12/19/16 10:49 Dose: 20 mg Furosemide (Lasix) 40 mg IVP DAILY [facility] Last Admin: 12/19/16 12:09 Dose: 40 mg Heparin Sodium (Porcine) (Heparin) 5,000 units SC Q12 [facility] Last Admin: 12/19/16 12:08 Dose: 5,000 units Moxifloxacin HCl (Avelox Iv 400mg/250ml Ns) 400 mg in 250 mls @ 167 mls/hr IVPB Q24H [facility] Last Admin: 12/19/16 12:07 Dose: 167 mls/hr Lisinopril (Zestril) 20 mg PO DAILY [facility] Last Admin: 12/19/16 10:51 Dose: 20 mg Metoprolol Succinate (Toprol Xl) 25 mg PO DAILY [facility] Last Admin: 12/19/16 10:49 Dose: 25 mg Neomycin/Polymyxin/Bacitracin (Neosporin Triple Antibiotic Oint) 1 gm TOP DAILY [facility] Last Admin: 12/18/16 12:49 Dose: 1 applic Pneumococcal Polyvalent Vaccine (Pneumovax 23 Vaccine) 0.5 ml IM .ONCE ONE Stop: 12/20/16 10:01 Rosuvastatin Calcium (Crestor) 5 mg PO DAILY [facility] Last Admin: 12/19/16 10:52 Dose: 5 mg Tamsulosin HCl (Flomax) 0.4 mg PO DAILY [facility] Last Admin: 12/19/16 12:10 Dose: 0.4 mg - Labs Labs: 12/19/16 11:09 12/19/16 11:09 - Constitutional Appears: No Acute Distress - Head Exam Head Exam: NORMAL INSPECTION, NORMOCEPHALIC - Eye Exam Eye Exam: EOMI, Normal appearance - ENT Exam ENT Exam: Mucous Membranes Moist - Neck Exam Neck Exam: Full ROM - Respiratory Exam Respiratory Exam: Clear to Ausculation Bilateral, NORMAL BREATHING PATTERN - Cardiovascular Exam Cardiovascular Exam: REGULAR RHYTHM, +S1, +S2 - GI/Abdominal Exam GI & Abdominal Exam: Soft. absent: Distended, Tenderness - Extremities Exam Extremities Exam: Full ROM, Normal Inspection - Neurological Exam Neurological Exam: Alert, Oriented x3 - Psychiatric Exam Psychiatric exam: Normal Affect, Normal Mood - Skin Skin Exam: Normal Color, Warm Assessment and Plan - Assessment and Plan (Free Text) Assessment: (1) Fall Assessment & Plan: Admit to telemetry. Pelvis X-ray: shows no fractures. Chest X-ray: shows no fractures. Mild interstitial prominence may reflect infection or edema. Right perihilar prominence may reflect infiltrate. Head CT: Mucosal thickening, bilateral maxillary sinuses. Extensive opacification of the ethmoid air cells. Mucosal thickening of the bilateral sphenoid sinuses. Mucosal thickening of the right frontal sinus. Correlate clinically for sinusitis. Cardio consult placed- Dr. Peralta consult placed. Dr. Garcia consulted for defibrillator evaluation. Status: Acute (2) Pneumonia Assessment & Plan: Chest X-ray: shows no fractures. Mild interstitial prominence may reflect infection or edema. Right perihilar prominence may reflect infiltrate. Avelox IVPB-DAY 2 Status: Acute (3) CHF exacerbation Assessment & Plan: Telemetric Monitoring Chest X-ray: shows no fractures. Mild interstitial prominence may reflect infection or edema. Right perihilar prominence may reflect infiltrate. BNP: 1490 Toprol XL 25 mg PO daily Lisinopril 20 mg PO daily Cordaone 200 mg PO daily Nuclear Stress Test today Troponin elevated 0.1310, 0.0670, 0.0440 Dr. Peralta will preform either stress test or Cath. Status: Acute (4) AICD (automatic cardioverter/defibrillator) present Assessment & Plan: Cardio consult placed- Dr. Peralta consult placed. Dr. Garcia consulted for defibrillator evaluation. Interrogate ICD ([employer]) at Bedside Order [employer] vital signs with HR Status: Acute (5) BPH without urinary obstruction Assessment & Plan: Flomax 0.4 mg PO daily Status: Acute (6) Prophylactic measure Assessment & Plan: Pepcid 20 mg PO BID SCDs HSQ Q12H Status: Acute - Assessment and Plan (Free Text) Assessment: All management as per Dr. Chu.
--- NOTE | 2016-12-19 14:56 | CP.PCM.PN ---
<Antoine Hammonds - Last Filed: 12/19/16 16:20> Subjective - Date & Time of Evaluation Date of Evaluation: 12/19/16 Time of Evaluation: 16:20 - Subjective Subjective: Cardiology Progress Note Dr. Garcia Patient seen and examined at the bedside. No acute distress. No acute events overnight. Nursing staff reports no issues. No complaints this morning. No interval change from prior examination. 12 point review of systems negative for all acute complaints. The patient had a nuclear stress test this morning. The patient had his ICD interrogated at the bedside today as well. Objective - Vital Signs/Intake and Output Vital Signs (last 24 hours): Temp Pulse Resp BP Pulse Ox 98.1 F 50 L 20 150/75 95 12/19/16 08:44 12/19/16 08:44 12/19/16 08:44 12/19/16 12:09 12/19/16 08:44 - Medications Medications: Current Medications Amiodarone HCl (Cordarone) 200 mg PO DAILY [facility] Last Admin: 12/19/16 10:49 Dose: 200 mg Ascorbic Acid (Vitamin C 500 Mg Tab) 500 mg PO DAILY [facility] Last Admin: 12/19/16 10:52 Dose: 500 mg Aspirin (Aspirin Chewable) 81 mg PO DAILY [facility] Last Admin: 12/19/16 10:51 Dose: 81 mg Ergocalciferol (Drisdol 50,000 Intl Units Cap) 1 cap PO QWK [facility] Last Admin: 12/18/16 10:34 Dose: 1 cap Famotidine (Pepcid) 20 mg PO BID [facility] Last Admin: 12/19/16 10:49 Dose: 20 mg Furosemide (Lasix) 40 mg IVP DAILY [facility] Last Admin: 12/19/16 12:09 Dose: 40 mg Heparin Sodium (Porcine) (Heparin) 5,000 units SC Q12 [facility] Last Admin: 12/19/16 12:08 Dose: 5,000 units Moxifloxacin HCl (Avelox Iv 400mg/250ml Ns) 400 mg in 250 mls @ 167 mls/hr IVPB Q24H [facility] Last Admin: 12/19/16 12:07 Dose: 167 mls/hr Lisinopril (Zestril) 20 mg PO DAILY [facility] Last Admin: 12/19/16 10:51 Dose: 20 mg Metoprolol Succinate (Toprol Xl) 25 mg PO DAILY [facility] Last Admin: 12/19/16 10:49 Dose: 25 mg Neomycin/Polymyxin/Bacitracin (Neosporin Triple Antibiotic Oint) 1 gm TOP DAILY [facility] Last Admin: 12/18/16 12:49 Dose: 1 applic Pneumococcal Polyvalent Vaccine (Pneumovax 23 Vaccine) 0.5 ml IM .ONCE ONE Stop: 12/20/16 10:01 Rosuvastatin Calcium (Crestor) 5 mg PO DAILY [facility] Last Admin: 12/19/16 10:52 Dose: 5 mg Tamsulosin HCl (Flomax) 0.4 mg PO DAILY [facility] Last Admin: 12/19/16 12:10 Dose: 0.4 mg - Labs Labs: 12/19/16 11:09 12/19/16 11:09 - Additional Findings Additional findings: - Constitutional Appears: Non-toxic, No Acute Distress - Head Exam Head Exam: ATRAUMATIC, NORMAL INSPECTION, NORMOCEPHALIC - Eye Exam Eye Exam: Normal appearance. absent: Nystagmus Pupil Exam: NORMAL ACCOMODATION - ENT Exam ENT Exam: Mucous Membranes Moist - Neck Exam Neck exam: Positive for: Full Rom, Normal Inspection. Negative for: Lymphadenopathy, Tenderness - Respiratory Exam Respiratory Exam: Clear to Auscultation Bilateral, NORMAL BREATHING PATTERN. absent: Accessory Muscle Use, Rales, Rhonchi, Wheezes - Cardiovascular Exam Cardiovascular Exam: REGULAR RHYTHM, RRR, +S1, +S2. absent: Bradycardia, Tachycardia, Diastolic murmur, Irregular Rhythm, JVD, Rubs, Systolic Murmur - GI/Abdominal Exam GI & Abdominal Exam: Normal Bowel Sounds, Soft. absent: Distended, Firm, Guarding, Tenderness - Extremities Exam Extremities exam: Positive for: normal inspection, pedal pulses present. Negative for: calf tenderness, pedal edema - Back Exam Back exam: NORMAL INSPECTION. absent: CVA tenderness (L), CVA tenderness (R) - Neurological Exam Neurological exam: Alert, CN II-XII Intact, Oriented x3 - Psychiatric Exam Psychiatric exam: Normal Affect, Normal Mood - Skin Skin Exam: Dry, Intact, Normal Color Assessment and Plan (1) Syncope, near Assessment & Plan: Interrogated ICD ([facility]) at Bedside- Battery like 8.5 years. Last incident November 06, 2016, no shock needed. Device functioning well Negative orthostatic vital signs Trpoonin: 0.1310 > 0.0670 > 0.0440 Telemetric Monitoring Nuclear Stress Test- normal response to lexiscan stress test. nuclear imaging report pending 12/18/16 EKG- normal sinus rhythm, normal AR interval, prolonged QRS duration and QTc interval, physiologic axis, RBBB, no acute ST or T wave changes 12/18/16 Echo- 56% EF. Mild hypokenesis in the mid-inferior wall (suggestive of CAD), Grade I abnormal relaxation pattern 12/18/16 CXR- Left sided ICD wires traced to right atrium unchanged from prior film (08/13/15). Mild interstitial prominence may reflect infection or edema. Right perihilar prominence may reflect infiltrate. 11/16/13 Echo- revealed EF 56% and a grade I relaxation abnormality. 01/15/16 EKG- AV dual paced rhythm with prolonged AR/QTc intervals and a physiologic axis. Case Discussed with Dr. Radha Hammonds PGY1 Status: Acute <Milvia Garcia - Last Filed: 01/15/17 10:15> Objective - Vital Signs/Intake and Output Vital Signs (last 24 hours): Temp Pulse Resp BP Pulse Ox 98 F 50 L 20 132/70 96 12/20/16 07:00 12/20/16 07:00 12/20/16 07:00 12/20/16 09:05 12/20/16 07:00 - Labs Labs: 12/20/16 07:01 12/20/16 07:01 Attending/Attestation - Attestation I have personally seen and examined this patient.: Yes I have fully participated in the care of the patient.: Yes I have reviewed all pertinent clinical information, including history, physical exam and plan: Yes Notes (Text): 01/15/17 10:15 ICD interrogated no events
--- NOTE | 2016-12-19 23:44 | CARD ---
APPROVED REPORT Protocol: LEXISCAN Test Type: LEXISCAN STRESS Test Indications: CHF Target HR: 141 bpm Resting ECG: abnormal Resting Heart Rate: 60 bpm Resting Blood Pressure: 122/80mmHg submaximum (85%): 120 bpm TEST SUMMARY [id number]:01..1.080/.0. PREINFSNHYPERV.13:[id number]/80.0. INFUSIONDOSE 100:300.00.01.053/.1. [id number]:[id number]/80.1. PROCEDURE Pharmacologic stress testing was performed using 0.4mg per 5ml of regadenoson given intravenously over 7-10 seconds. POST EXERCISE Reason for Termination: Lexiscan protocol completed Target HR: No Max HR: 53 bpm 68% of Maximum Predicted HR: 141 bpm Exercise duration: 00:30 min:sec, 0 Stage Exercise capacity: 1.0METs Max Blood Pressure: 122/80mmHg Blood Pressure response to exercise: normal resting BP - appropriate response Heart Rate response to exercise: appropriate Chest Pain: No, none Angina index: 0 Arrhythmia: No, none ST Change: No, none Deviation: 0 mm INTERPRETATION Stress EKG Conclusion: Nuclear report to follow EXAM: Myocardial Perfusion STRESS/REST Imaging Protocol The imaging protocol used to acquire images was Stress Tc-99m/rest Tc-99m 1 day Stress Spect myocardial perfusion imaging was performed in supine position 40 minutes following the injection of 12.7 mCi of Tc-99 Myoview. Gated Rest Spect was performed 40 minutes after intravenous 32.7 mCi Tc-99 Myoview injection. The images were gated to evaluate regional wall motion and calculate ventricular ejection fraction.Images were reconstructed using backfilter projection method in short horizontal and verticle long axis. Spect slices were generated. RESTING DATA KAR026.30saHV4.70L/min ESV33.00mlMyocardial Fstj535.00g Av. Heart Rate50.00bpm EF74.00% STRESS DATA VFR051.04gbVV7.00L/min ESV24.00mlMyocardial Tuwf527.00g EF78.00% Regional WT score at stress:1.00 Regional WM score at stress:0.00 Summed WT score at stress:6.00 Av. Heart Rate60.00bpmSummed WM score at stress:0.00 LV Perf. Quant 17 Seg. SSS14.00 17 Seg. SRS11.00 17 Seg. SDS3.00 Stress Defect Extent (% LAD)2.50Rest Defect Extent (% LAD)0.00Rev. Defect Extent (% LAD)1.90 Stress Defect Extent (% LCX)47.50Rest Defect Extent (% LCX)41.30Rev. Defect Extent (% LCX)21.30 Stress Defect Extent (% RCA)46.70Rest Defect Extent (% RCA)47.80Rev. Defect Extent (% RCA)0.00 Stress Defect Extent (% DEE)25.70Rest Defect Extent (% DEE)22.80Rev. Defect Extent (% DEE)7.20 Other Information Quality:Good Left Ventricle LV Function:Left ventricle systolic function is normal. The Ejection Fraction is >55%. Conclusion 1. Large fixed inferior defect. No stress induced ischemia. Normal EF
[2016-12-20 01:18] VITALS: O2SAT 96
[2016-12-20 07:20] LABS: BASO % 0.5 % (0.0-2.0); EOS # 0.1 K/uL (0.0-0.7); EOS % 1.8 % (0.0-4.0); HEMATOCRIT 43.6 % (35.0-51.0); LYMPH % 25.9 % (20.0-40.0); MEAN CELL VOLUME 87.4 fL (80.0-94.0); MEAN CORPUSCULAR HEMOGLOBIN 28.9 pg (27.0-31.0); MEAN CORPUSCULAR HGB CONC 33.1 g/dL (33.0-37.0); MEAN PLATELET VOLUME 8.7 fL (7.2-11.7); MONO # 1.1 K/uL (0.0-0.8); MONO % 13.6 % (0.0-10.0); RED CELL DISTRIBUTION WIDTH 14.2 % (11.5-14.5); WHITE BLOOD COUNT 7.8 K/uL (4.8-10.8)
[2016-12-20 07:31] LABS: CHLORIDE 103 mmol/L (98-107)
[2016-12-20 07:32] LABS: SODIUM 142 mmol/L (132-148)
[2016-12-20 07:34] LABS: ALKALINE PHOSPHATASE 51 U/L (38-126); ALT/SGPT 76 U/L (21-72); AST/SGOT 214 U/L (17-59); BILIRUBIN,TOTAL 0.8 mg/dL (0.2-1.3); BLOOD UREA NITROGEN 29 mg/dL (9-20); CARBON DIOXIDE 29 mmol/L (22-30); GFR AFRICAN-AMERICAN > 60; GLUCOSE,RANDOM 116 mg/dL (75-110); TOTAL PROTEIN 6.3 g/dL (6.3-8.3)
[2016-12-20 07:35] LABS: CALCIUM 8.6 mg/dl (8.6-10.4); PHOSPHOROUS 4.6 mg/dL (2.5-4.5)
[2016-12-20 07:37] LABS: POTASSIUM 3.7 mmol/L (3.6-5.2)
--- NOTE | 2016-12-20 07:41 | CP.PCM.PN ---
Subjective - Date & Time of Evaluation Date of Evaluation: 12/20/16 Time of Evaluation: 17:30 - Subjective Subjective: Stress test normal EF normal No cath recommended at this time Will contninue ACEI, B blockers, ASA, statins and Lasix (Prn) Objective - Vital Signs/Intake and Output Vital Signs (last 24 hours): Temp Pulse Resp BP Pulse Ox 97.9 F 52 L 20 126/72 96 12/19/16 23:45 12/19/16 23:45 12/19/16 23:45 12/19/16 23:45 12/19/16 23:45 - Medications Medications: Current Medications Amiodarone HCl (Cordarone) 200 mg PO DAILY [facility] Last Admin: 12/19/16 10:49 Dose: 200 mg Ascorbic Acid (Vitamin C 500 Mg Tab) 500 mg PO DAILY [facility] Last Admin: 12/19/16 10:52 Dose: 500 mg Aspirin (Aspirin Chewable) 81 mg PO DAILY [facility] Last Admin: 12/19/16 10:51 Dose: 81 mg Ergocalciferol (Drisdol 50,000 Intl Units Cap) 1 cap PO QWK [facility] Last Admin: 12/18/16 10:34 Dose: 1 cap Famotidine (Pepcid) 20 mg PO BID [facility] Last Admin: 12/19/16 22:18 Dose: 20 mg Furosemide (Lasix) 40 mg IVP DAILY [facility] Last Admin: 12/19/16 12:09 Dose: 40 mg Heparin Sodium (Porcine) (Heparin) 5,000 units SC Q12 [facility] Last Admin: 12/19/16 22:17 Dose: 5,000 units Moxifloxacin HCl (Avelox Iv 400mg/250ml Ns) 400 mg in 250 mls @ 167 mls/hr IVPB Q24H [facility] Last Admin: 12/19/16 12:07 Dose: 167 mls/hr Lisinopril (Zestril) 20 mg PO DAILY [facility] Last Admin: 12/19/16 10:51 Dose: 20 mg Metoprolol Succinate (Toprol Xl) 25 mg PO DAILY [facility] Last Admin: 12/19/16 10:49 Dose: 25 mg Neomycin/Polymyxin/Bacitracin (Neosporin Triple Antibiotic Oint) 1 gm TOP DAILY [facility] Last Admin: 12/18/16 12:49 Dose: 1 applic Pneumococcal Polyvalent Vaccine (Pneumovax 23 Vaccine) 0.5 ml IM .ONCE ONE Stop: 12/20/16 10:01 Rosuvastatin Calcium (Crestor) 5 mg PO DAILY [facility] Last Admin: 12/19/16 10:52 Dose: 5 mg Tamsulosin HCl (Flomax) 0.4 mg PO DAILY [facility] Last Admin: 12/19/16 12:10 Dose: 0.4 mg - Labs Labs: 12/20/16 07:01 12/19/16 11:09
[2016-12-20 08:14] VITALS: BP 132/70; PULSE 50; TEMP 98
--- NOTE | 2016-12-20 08:32 | CP.PCM.PN ---
Subjective - Date & Time of Evaluation Date of Evaluation: 12/20/16 Time of Evaluation: 07:50 - Subjective Subjective: No cp tolerating PO Objective - Vital Signs/Intake and Output Vital Signs (last 24 hours): Temp Pulse Resp BP Pulse Ox 98 F 50 L 20 132/70 96 12/20/16 07:00 12/20/16 07:00 12/20/16 07:00 12/20/16 07:00 12/20/16 07:00 - Medications Medications: Current Medications Amiodarone HCl (Cordarone) 200 mg PO DAILY [facility] Last Admin: 12/19/16 10:49 Dose: 200 mg Ascorbic Acid (Vitamin C 500 Mg Tab) 500 mg PO DAILY [facility] Last Admin: 12/19/16 10:52 Dose: 500 mg Aspirin (Aspirin Chewable) 81 mg PO DAILY [facility] Last Admin: 12/19/16 10:51 Dose: 81 mg Ergocalciferol (Drisdol 50,000 Intl Units Cap) 1 cap PO QWK [facility] Last Admin: 12/18/16 10:34 Dose: 1 cap Famotidine (Pepcid) 20 mg PO BID [facility] Last Admin: 12/19/16 22:18 Dose: 20 mg Furosemide (Lasix) 40 mg IVP DAILY [facility] Last Admin: 12/19/16 12:09 Dose: 40 mg Heparin Sodium (Porcine) (Heparin) 5,000 units SC Q12 [facility] Last Admin: 12/19/16 22:17 Dose: 5,000 units Moxifloxacin HCl (Avelox Iv 400mg/250ml Ns) 400 mg in 250 mls @ 167 mls/hr IVPB Q24H [facility] Last Admin: 12/19/16 12:07 Dose: 167 mls/hr Lisinopril (Zestril) 20 mg PO DAILY [facility] Last Admin: 12/19/16 10:51 Dose: 20 mg Metoprolol Succinate (Toprol Xl) 25 mg PO DAILY [facility] Last Admin: 12/19/16 10:49 Dose: 25 mg Neomycin/Polymyxin/Bacitracin (Neosporin Triple Antibiotic Oint) 1 gm TOP DAILY [facility] Last Admin: 12/18/16 12:49 Dose: 1 applic Pneumococcal Polyvalent Vaccine (Pneumovax 23 Vaccine) 0.5 ml IM .ONCE ONE Stop: 12/20/16 10:01 Rosuvastatin Calcium (Crestor) 5 mg PO DAILY [facility] Last Admin: 12/19/16 10:52 Dose: 5 mg Tamsulosin HCl (Flomax) 0.4 mg PO DAILY [facility] Last Admin: 12/19/16 12:10 Dose: 0.4 mg - Labs Labs: 12/20/16 07:01 12/20/16 07:01 - Constitutional Appears: Well - Head Exam Head Exam: NORMOCEPHALIC - Eye Exam Eye Exam: Normal appearance - ENT Exam ENT Exam: Mucous Membranes Moist - Respiratory Exam Respiratory Exam: Clear to Ausculation Bilateral - Cardiovascular Exam Cardiovascular Exam: REGULAR RHYTHM - GI/Abdominal Exam GI & Abdominal Exam: Normal Bowel Sounds - Exam External exam: NORMAL EXTERNAL EXAM - Extremities Exam Extremities Exam: Normal Inspection - Neurological Exam Neurological Exam: Alert, Awake - Psychiatric Exam Psychiatric exam: Normal Affect, Normal Mood - Skin Skin Exam: Intact, Warm Assessment and Plan (1) AICD (automatic cardioverter/defibrillator) present Assessment & Plan: continue chf meds no evants on ICD no vt Status: Acute (2) CHF exacerbation Status: Acute
[2016-12-20] MEDS: Metoprolol Succinate 25 mg XL Tab PO SCH (09:07)
[2016-12-20] MEDS ORDERED: Pneumococcal 23-Valent Vaccine IM ONE (10:00)
[2016-12-20] MEDS: Moxifloxacin IV 400mg/250ml NS 400 MG/250 ML BAG IVPB SCH (10:43)
[2016-12-20] MEDS: Bacitracin/Neomycin/Polymyxin Oint(30GM) TOP SCH (10:44)
--- NOTE | 2016-12-20 11:23 | CP.PCM.PN ---
Subjective - Date & Time of Evaluation Date of Evaluation: 12/20/16 Time of Evaluation: 11:20 - Subjective Subjective: PT SEEN AND EXAMINED TODAY, ADMITTED FOR CHF, PNEUMONIA, EF>55%, ICD INTERROGATED, STRESS TEST NORMAL, DENIES ANY CP, SOB, PALPITATIONS, RESP EASY AND UNLABORED, LUNGS CTA B/L, NO CATH REQUIRED PER CARDIO, PT D/C HOME PER DR STANTON TODAY, REVIEW LAB W/DR STANTON, MADE AWARE ELEVATED LFTS, CK-MB WILL MONITOR OUTPT, CONTINUE HOME MEDS PER HIM, NO ABX NEEDED, PT EDUCATED TO F/U W/PMD, CARDIO IN 1-3 DAYS, RETURN TO ED IF ANY WORSENING S/S, AGREE, VERBALIZE UNDERSTANDING. Objective - Vital Signs/Intake and Output Vital Signs (last 24 hours): Temp Pulse Resp BP Pulse Ox 98 F 50 L 20 132/70 96 12/20/16 07:00 12/20/16 07:00 12/20/16 07:00 12/20/16 09:05 12/20/16 07:00 - Medications Medications: Current Medications Amiodarone HCl (Cordarone) 200 mg PO DAILY [facility] Last Admin: 12/20/16 09:04 Dose: 200 mg Ascorbic Acid (Vitamin C 500 Mg Tab) 500 mg PO DAILY [facility] Last Admin: 12/20/16 09:07 Dose: 500 mg Aspirin (Aspirin Chewable) 81 mg PO DAILY [facility] Last Admin: 12/20/16 09:04 Dose: 81 mg Ergocalciferol (Drisdol 50,000 Intl Units Cap) 1 cap PO QWK [facility] Last Admin: 12/18/16 10:34 Dose: 1 cap Famotidine (Pepcid) 20 mg PO BID [facility] Last Admin: 12/20/16 09:06 Dose: 20 mg Furosemide (Lasix) 40 mg IVP DAILY [facility] Last Admin: 12/20/16 09:05 Dose: 40 mg Heparin Sodium (Porcine) (Heparin) 5,000 units SC Q12 [facility] Last Admin: 12/20/16 09:05 Dose: 5,000 units Moxifloxacin HCl (Avelox Iv 400mg/250ml Ns) 400 mg in 250 mls @ 167 mls/hr IVPB Q24H [facility] Last Admin: 12/20/16 10:43 Dose: 167 mls/hr Lisinopril (Zestril) 20 mg PO DAILY [facility] Last Admin: 12/20/16 09:07 Dose: 20 mg Metoprolol Succinate (Toprol Xl) 25 mg PO DAILY [facility] Last Admin: 12/20/16 09:07 Dose: Not Given Neomycin/Polymyxin/Bacitracin (Neosporin Triple Antibiotic Oint) 1 gm TOP DAILY [facility] Last Admin: 12/20/16 10:44 Dose: 1 applic Rosuvastatin Calcium (Crestor) 5 mg PO DAILY [facility] Last Admin: 12/20/16 09:04 Dose: 5 mg Tamsulosin HCl (Flomax) 0.4 mg PO DAILY [facility] Last Admin: 12/20/16 09:05 Dose: 0.4 mg - Labs Labs: 12/20/16 07:01 12/20/16 07:01
--- NOTE | 2016-12-20 16:40 | PCM.HF ---
Heart Failure Core Measure - Heart Failure Ejection Fraction: 40 % or Greater (LVEF 56%) BRAXTON Inhibitor Prescribed: Yes Beta-Nereyda Prescribed: Metoprolol Succinate Angiotensin II Receptor Nereyda Prescribed: No Contraindication/Reason for not providing: ON BRAXTON AnticoagulationTherapy for Atrial Fibrillation/Atrialflutter: No Contraindication/Reason for not providing: ON AMIODARONE Aldosterone Antagonist Prescribed: No Contraindication/Reason for not providing: ON AMIODARAONE Hydralazine Nitrate Prescribed: No Contraindication/Reason for not providing: ON AMIODARONE Implantable Cardioverter Defibrillator Therapy: No Contraindication/Reason for not providing: LVEF >40% Cardiac Resynchronization Therapy Prescribed: No Contraindication/Reason for not providing: LVEF >40% - Follow up Will be discharged to: Home Follow Up Date (must be within 7 days from discharge): 12/22/16 Follow Up Time: 09:00
--- NOTE | 2016-12-22 07:32 | HP ---
The patient admitted to the hospital with chief complaint of shortness of breath, weakness, fatigue, tiredness. The patient came to the hospital and advised admission. PAST MEDICAL HISTORY: Congestive heart failure, status post AICD placement. PHYSICAL EXAMINATION: GENERAL: The patient is awake, alert, oriented. VITAL SIGNS: Temperature 98, pulse 90. HEENT: Within normal limits. NECK: Supple. CHEST: Symmetrical. HEART: Regular. ABDOMEN: Soft. EXTREMITIES: No edema. ASSESSMENT: The patient suffers from congestive heart failure. Rule out myocardial infarction. The patient bed rest, supportive care. Cardiology evaluation. Ino Rodrigez MD cc: [id number] TT: 12/20/2016 11:35:09 ak
--- NOTE | 2016-12-22 07:33 | PN ---
DATE: 12/20/2016 The patient was admitted to the hospital complaining of shortness of breath. The patient underwent a stress test. I will follow the results. Ino Rodrigez MD cc: [id number] TT: 12/20/2016 09:49:49 Confirmation # [id number] Dictation # [id number]
--- NOTE | 2016-12-22 07:34 | DS ---
The patient was admitted to the hospital with chief complaint of shortness of breath, chest pain. Th e patient underwent stress test. The patient showed improvement. Ino Rodrigez MD cc: [phone] TT: 12/21/2016 07:46:06 en
--- NOTE | 2016-12-24 12:12 | CARD ---
APPROVED REPORT EKG Measurement Heart [id number] ME 160P55 [id number] <Conclusion> Electronic atrial pacemaker Right bundle branch block Abnormal ECG
--- NOTE | 2017-01-09 11:55 | CARD ---
APPROVED REPORT EKG Measurement Heart [id number] 156P49 [id number] <Conclusion> Sinus bradycardia Possible Left atrial enlargement Right bundle branch block Abnormal ECG
== END 2016-12-20 13:44 | disposition home or self-care (01) | DRG 291 ==
LOC: C.ER 01:47 → C.6T 03:31
PROVIDERS: ADMIT Internal Medicine Pulmonary Disease; ATTEND Internal Medicine Pulmonary Disease
DX: I11.0 Hypertensive heart disease with heart failure (principal); J18.9 Pneumonia, unspecified organism; I50.9 Heart failure, unspecified; I25.10 Atherosclerotic heart disease of native coronary artery without angina pectoris; E78.00 Pure hypercholesterolemia, unspecified; N40.0 Benign prostatic hyperplasia without lower urinary tract symptoms; F41.8 Other specified anxiety disorders; S50.311A Abrasion of right elbow, initial encounter; W19.XXXA Unspecified fall, initial encounter; Y92.009 Unspecified place in unspecified non-institutional (private) residence as the place of occurrence of the external cause; Z95.810 Presence of automatic (implantable) cardiac defibrillator; Z95.1 Presence of aortocoronary bypass graft; Z85.46 Personal history of malignant neoplasm of prostate; Z87.442 Personal history of urinary calculi; Z92.3 Personal history of irradiation; Z87.891 Personal history of nicotine dependence

== ENCOUNTER 2017-07-23 10:49 | Emergency (ER) | payer MEDICARE ==
[2017-07-23 10:58] VITALS: BMI 31.4
[2017-07-23 11:08] VITALS: RESP 18; TEMP 98.2
[2017-07-23 13:21] LABS: URINE BILIRUBIN NEGATIVE (NEGATIVE); URINE BLOOD NEGATIVE (NEGATIVE); URINE GLUCOSE (UA) NORMAL (Normal); URINE KETONE NEGATIVE (NEGATIVE); URINE LEUKOCYTE ESTERASE 3+ Leu/uL (Negative); URINE PROTEIN 2+ mg/dL (NEGATIVE)
[2017-07-23 13:35] LABS: RBC URINE 3 /hpf (0-3); URINE BACTERIA MANY (<OCC)
[2017-07-23 13:36] LABS: URINE COLOR YELLOW (YELLOW); WBC URINE 70 /hpf (0-5)
--- NOTE | 2017-07-23 13:52 | C.PDOC ---
History Of Present Illness 82 year old male presents to the ED for evaluation of dysuria which began a few days ago. Patient also complains of an area of irritated skin to his gluteal region. Patient notes he was seen by rrt in the past for evaluation of similar lesions to his face and arms and was given a cream, but is unsure of his diagnosis. Patient denies fever, chills, abdominal pain, nausea, vomiting, diarrhea, hematuria. Time Seen by Provider: 07/23/17 12:40 Chief Complaint (Nursing): Male Genitourinary History Per: Patient History/Exam Limitations: no limitations Onset/Duration Of Symptoms: Days Current Symptoms Are (Timing): Still Present Associated Symptoms: Urinary Symptoms (dysuria ). denies: Fever, Chills, Nausea , Diarrhea Additional History Per: Patient Past Medical History Reviewed: Historical Data, Nursing Documentation, Vital Signs Vital Signs: Last Vital Signs Temp 98.2 F 07/23/17 10:58 Pulse 66 07/23/17 14:17 Resp 18 07/23/17 14:17 BP 166/84 H 07/23/17 14:17 Pulse Ox 97 07/23/17 14:17 - Medical History PMH: Anxiety, Benign Prostatic Hyperplasia, CAD, Depression, Diverticulitis, HTN , Hypercholesterolemia, Kidney Stones, Malignancy (Prostate), Pneumonia, Chronic Kidney Disease Surgical History: CABG, Pacemaker (2013) Family History: States: Unknown Family Hx - Social History Hx Tobacco Use: No Hx Alcohol Use: Yes (occacasional, social) Hx Substance Use: No - Immunization History Hx Tetanus Toxoid Vaccination: No Hx Influenza Vaccination: No Hx Pneumococcal Vaccination: No Review Of Systems Constitutional: Negative for: Fever, Chills Gastrointestinal: Negative for: Nausea, Vomiting, Abdominal Pain, Diarrhea Genitourinary: Positive for: Dysuria. Negative for: Hematuria Physical Exam - Physical Exam Appears: Non-toxic, No Acute Distress, Other (comfortable) Skin: Normal Color, Warm, Dry, Other (3cm area of irritation and dry, scaly skin to right gluteal region. no signs of fluctuance or induration ) Oral Mucosa: Moist Chest: Symmetrical, No Deformity, No Tenderness, Other (Pacemaker to left upper chest wall ) Cardiovascular: Rhythm Regular, No Murmur Respiratory: Normal Breath Sounds, No Rales, No Rhonchi, No Wheezing Gastrointestinal/Abdominal: Soft, No Tenderness, No Guarding, No Rebound Back: No CVA Tenderness Extremity: Normal ROM, Capillary Refill (less than 2 seconds ) Neurological/Psych: Oriented x3, Normal Speech, Normal Cognition Gait: Steady ED Course And Treatment O2 Sat by Pulse Oximetry: 95 (on RA) Pulse Ox Interpretation: Normal Progress Note: UA ordered and reviewed. Urine culture obtained and sent to lab for further evaluation. Ciproflaxin PO and Pyridium PO administered. Disposition Counseled Patient/Family Regarding: Studies Performed, Diagnosis, Need For Followup, Rx Given - Disposition Referrals: [facility] [Outside] Fredrick Stoner Jr., MD [Staff Provider] - Disposition: HOME/ ROUTINE Disposition Time: 13:50 Condition: STABLE Additional Instructions: FOLLOW UP WITH YOUR DOCTOR/CLINIC IN 1-2 DAYS USE MEDICATIONS DIRECTED DRINK PLENTY OF FLUIDS RETURN TO ER IF SYMPTOMS WORSEN Prescriptions: Ciprofloxacin [Cipro] 1 tab PO BID #14 tab Phenazopyridine [Pyridium] 100 mg PO TID #9 tab Vits A and D/White Pet/Lanolin [A and D Ointment] 1 appl TP BID #1 tub Instructions: Urinary Tract Infection in Men (ED) Forms: [employer] (Belarusian) Print Language: PAKISTANI - Clinical Impression Clinical Impression: Dysuria - Scribe Statement The provider has reviewed the documentation as recorded by the Scribe (Peyton Clemons) Provider Attestation: All medical record entries made by the Scribe were at my direction and personally dictated by me. I have reviewed the chart and agree that the record accurately reflects my personal performance of the history, physical exam, medical decision making, and the department course for this patient. I have also personally directed, reviewed, and agree with the discharge instructions and disposition.
[2017-07-23 14:17] VITALS: BP 166/84; PULSE 66
[2017-07-23 14:41] VITALS: O2SAT 95
== END 2017-07-23 14:17 | disposition home or self-care (01) ==
LOC: C.ER 10:49
DX: R30.0 Dysuria (principal)

== ENCOUNTER 2017-08-03 09:45 | Emergency (ER) | payer MEDICARE ==
[2017-08-03 09:53] VITALS: BMI 31.5
[2017-08-03 09:54] VITALS: BP 155/79; PULSE 70; RESP 18; TEMP 97.9; O2SAT 99
--- NOTE | 2017-08-03 10:25 | C.PDOC ---
History Of Present Illness 82 year old male with a PMHx of lower extremity Edema, pacemaker present, and defibrillator presents to the ED with complaints of bilateral calf pain for 3 days. Patient reports he was recently in ER last week for a UTI and began his medication but feels it "may have interacted" with him drinking wine which caused the calf pain. Patient denies weakness, numbness, fever, chills, chest pain, shortness of breath, or other complaints at this time Time Seen by Provider: 08/03/17 09:56 Chief Complaint (Nursing): Lower Extremity Problem/Injury History Per: Patient History/Exam Limitations: no limitations Onset/Duration Of Symptoms: Days (3 days) Current Symptoms Are (Timing): Still Present Recent travel outside of the [place]: No Additional History Per: Prior Records Past Medical History Reviewed: Historical Data, Nursing Documentation, Vital Signs Vital Signs: Last Vital Signs Temp 97.9 F 08/03/17 09:53 Pulse 70 08/03/17 09:53 Resp 18 08/03/17 09:53 BP 155/79 H 08/03/17 09:53 Pulse Ox 99 08/03/17 11:30 - Medical History PMH: Anxiety, Benign Prostatic Hyperplasia, CAD, Depression, Diverticulitis, HTN , Hypercholesterolemia, Kidney Stones, Malignancy (Prostate), Pneumonia, Chronic Kidney Disease Surgical History: CABG, Pacemaker (2013) Family History: States: Unknown Family Hx - Social History Hx Tobacco Use: No Hx Alcohol Use: Yes (occacasional, social) Hx Substance Use: No - Immunization History Hx Tetanus Toxoid Vaccination: No Hx Influenza Vaccination: No Hx Pneumococcal Vaccination: No Review Of Systems Constitutional: Negative for: Fever, Chills Cardiovascular: Negative for: Chest Pain, Palpitations Respiratory: Negative for: Cough, Shortness of Breath Gastrointestinal: Negative for: Nausea, Vomiting, Abdominal Pain Musculoskeletal: Positive for: Other (bilateral calf pain) Neurological: Negative for: Weakness, Numbness Physical Exam - Physical Exam Appears: Non-toxic, No Acute Distress Skin: Warm, Dry, No Rash Head: Atraumatic, Normacephalic, No Tenderness Eye(s): bilateral: Normal Inspection, PERRL, EOMI Oral Mucosa: Moist Neck: Supple Chest: Symmetrical, No Deformity Cardiovascular: Rhythm Regular, No Murmur Respiratory: No Rales, No Rhonchi, No Wheezing, Other (clear to auscultation bilaterally) Gastrointestinal/Abdominal: Soft, No Tenderness, No Distention, No Guarding, No Rebound Extremity: Normal ROM, No Calf Tenderness, Capillary Refill (<2 seconds ), Swelling (right calf swelling), Other (no edema to the left calf; bilateral foot 2+ edema ) Neurological/Psych: Oriented x3 Gait: Steady ED Course And Treatment O2 Sat by Pulse Oximetry: 99 (RA) Pulse Ox Interpretation: Normal - CT Scan/US DUPLEX Other Rad Studies (CT/US): Radiology Report Reviewed (NEG PER TECH) Progress Note: Venous duplex scan was ordered. Disposition Counseled Patient/Family Regarding: Studies Performed, Diagnosis, Need For Followup - Disposition Referrals: [facility] [Outside] [facility] [Outside] YOUR,PMD [Other] Disposition: HOME/ ROUTINE Disposition Time: 12:29 Condition: GOOD Additional Instructions: TAKE LASIX PREVIOUSLY ADVISED X 1 WEEK. FOLLOW UP WITH YOUR PMD. Instructions: Edema (ED) Forms: [employer] (Armenian) - Clinical Impression Clinical Impression: Peripheral edema - Scribe Statement An Newberry All medical record entries made by the Scribe were at my direction and personally dictated by me. I have reviewed the chart and agree that the record accurately reflects my personal performance of the history, physical exam, medical decision making, and the department course for this patient. I have also personally directed, reviewed, and agree with the discharge instructions and disposition.
--- NOTE | 2017-08-03 13:50 | VASCLAB ---
PROCEDURE: Lower Extremity Venous Duplex Exam. HISTORY: SWELLING CALF PAIN R/O DVT PRIORS: None. TECHNIQUE: Bilateral common femoral, femoral, popliteal and posterior tibial, peroneal and great saphenous veins were evaluated. Flow was assessed with color Doppler, compressibility, assessment of phasic flow and augmentation response. Report prepared by Jus Cooney, MIAN, RVT FINDINGS: RIGHT: 1. Common Femoral Vein: 1.1. Compressibility - Fully compressible: Thrombus - None : Flow - Phasic: Augmentation -Normal: Reflux - None. 2. Femoral Vein: 2.1. Compressibility - Fully compressible: Thrombus - None : Flow - Phasic: Augmentation -Normal: Reflux - None. 3. Popliteal Vein: 3.1. Compressibility - Fully compressible: Thrombus - None : Flow - Phasic: Augmentation -Normal: Reflux - None. 4. Posterior Tibial Vein: 4.1. Compressibility - Fully compressible: Thrombus - None: Flow - Phasic: Augmentation -Normal: Reflux - None. 5. Peroneal Vein: 5.1. Compressibility - Fully compressible: Thrombus - None: Flow - Phasic: Augmentation -Normal: Reflux - None. 6. Great Saphenous Vein: 6.1. Compressibility - Fully compressible: Thrombus - None: Flow - Phasic: Augmentation - Normal: Reflux - None. LEFT: 1. Common Femoral Vein: 1.1. Compressibility - Fully compressible: Thrombus - None: Flow - Phasic: Augmentation -Normal: Reflux - None. 2. Femoral Vein: 2.1. Compressibility - Fully compressible: Thrombus - None: Flow - Phasic: Augmentation -Normal: Reflux - None. 3. Popliteal Vein: 3.1. Compressibility - Fully compressible: Thrombus - None : Flow - Phasic: Augmentation -Normal: Reflux - None. 4. Posterior Tibial Vein: 4.1. Compressibility - Fully compressible: Thrombus - None: Flow - Phasic: Augmentation -Normal: Reflux - None. 5. Peroneal Vein: 5.1. Compressibility - Fully compressible: Thrombus - None: Flow - Phasic: Augmentation -Normal: Reflux - None. 6. Great Saphenous Vein: 6.1. Compressibility - Fully compressible: Thrombus - None: Flow - Phasic: Augmentation - Normal: Reflux - None. OTHER FINDINGS: Right: None significant. Left: None significant. IMPRESSION: Right: No evidence of deep or superficial vein thrombosis of the right lower extremity. Normal valve function noted of the right side. Left: No evidence of deep or superficial vein thrombosis of the left lower extremity. Normal valve function noted of the left side.
== END 2017-08-03 12:41 | disposition home or self-care (01) ==
LOC: C.ER 09:45
DX: R60.0 Localized edema (principal); I12.9 Hypertensive chronic kidney disease with stage 1 through stage 4 chronic kidney disease, or unspecified chronic kidney disease; N18.9 Chronic kidney disease, unspecified; Z87.891 Personal history of nicotine dependence

== ENCOUNTER 2017-08-06 15:15 | Emergency (ER) | payer MEDICARE ==
[2017-08-06 15:16] VITALS: BMI 31.5
--- NOTE | 2017-08-06 15:42 | C.PDOC ---
History Of Present Illness 82 y/o male presents to ED with complaints of difficulty urinating since last night. Patient was seen 1 week ago at ED and given Cipro which he has been compliant with but reports no improvement. Patient states he has to sit in the bathroom for awhile for urine to come out and does not come out in a stream. Patient denies back pain, dysuria, hematuria, abdominal pain or any other complaints at this time. Chief Complaint (Nursing): Male Genitourinary History Per: Patient History/Exam Limitations: no limitations Onset/Duration Of Symptoms: Days Current Symptoms Are (Timing): Still Present Associated Symptoms: Urinary Symptoms Past Medical History Reviewed: Historical Data, Nursing Documentation, Vital Signs Vital Signs: Last Vital Signs Temp 97.4 F L 08/06/17 15:20 Pulse 76 08/06/17 15:20 Resp 19 08/06/17 15:20 BP 178/81 H 08/06/17 15:20 Pulse Ox 97 08/06/17 16:27 - Medical History PMH: Anxiety, Benign Prostatic Hyperplasia, CAD, Depression, Diverticulitis, HTN , Hypercholesterolemia, Kidney Stones, Malignancy (Prostate), Pneumonia, Chronic Kidney Disease Surgical History: CABG, Pacemaker (2013) Family History: States: No Known Family Hx - Social History Hx Tobacco Use: No Hx Alcohol Use: Yes (occacasional, social) Hx Substance Use: No - Immunization History Hx Tetanus Toxoid Vaccination: No Hx Influenza Vaccination: No Hx Pneumococcal Vaccination: No Review Of Systems Constitutional: Negative for: Fever, Chills Gastrointestinal: Negative for: Nausea, Vomiting Genitourinary: Positive for: Other (difficulty urinating). Negative for: Dysuria, Hematuria Musculoskeletal: Negative for: Back Pain Skin: Negative for: Rash Physical Exam - Physical Exam Appears: Non-toxic, No Acute Distress Skin: Warm, Dry, No Rash Head: Atraumatic, Normacephalic Oral Mucosa: Moist Neck: Supple Cardiovascular: Rhythm Regular Respiratory: Normal Breath Sounds, No Rales, No Rhonchi, No Wheezing Gastrointestinal/Abdominal: Bowel Sounds (Active), Soft, No Tenderness, No Guarding, No Rebound, Hernia (Ventral 7cm diameter), Other (Healed median sternotomy scar) Back: No CVA Tenderness Male Genital: Normal Inspection, No Testicular Tenderness, No Testicular Swelling, No Inguinal Tenderness, No Inguinal Swelling, No Scrotal Swelling Extremity: Pedal Edema (Trace), No Deformity Extremity: Bilateral: Normal ROM Neurological/Psych: Oriented x3, Normal Motor, Normal Sensation Gait: Steady ED Course And Treatment O2 Sat by Pulse Oximetry: 97 (RA) Pulse Ox Interpretation: Normal Medical Decision Making Medical Decision Making: Impression: Plan: UA, Bladder ultrasound patient had urinary retention with still 305 cc of urine on his bladder. Patient is going to have a carney placed.Pt was offered a Carney which he refuses Disposition - Disposition Referrals: [facility] [Outside] Disposition: HOME/ ROUTINE Disposition Time: 16:22 Condition: GOOD Additional Instructions: See your urologist as scheduled.Return to ED for inability to void.Take cipro and flomax as prescribed Prescriptions: Ciprofloxacin HCl [Cipro] 500 mg PO BID #20 tablet Instructions: Urinary Retention in Men (ED) Forms: [employer] (Iranian) - Clinical Impression Clinical Impression: Urinary retention - Scribe Statement The provider has reviewed the documentation as recorded by the Musaibawilda Blakely All medical record entries made by the Musaibawilda were at my direction and personally dictated by me. I have reviewed the chart and agree that the record accurately reflects my personal performance of the history, physical exam, medical decision making, and the department course for this patient. I have also personally directed, reviewed, and agree with the discharge instructions and disposition.
--- NOTE | 2017-08-06 15:42 | C.PDOC ---
History Of Present Illness 82 y/o male presents to ED Chief Complaint (Nursing): Male Genitourinary Past Medical History Vital Signs: Last Vital Signs Temp 97.4 F L 08/06/17 15:20 Pulse 76 08/06/17 15:20 Resp 19 08/06/17 15:20 BP 178/81 H 08/06/17 15:20 Pulse Ox 97 08/06/17 15:20 - Medical History PMH: Anxiety, Benign Prostatic Hyperplasia, CAD, Depression, Diverticulitis, HTN , Hypercholesterolemia, Kidney Stones, Malignancy (Prostate), Pneumonia, Chronic Kidney Disease Surgical History: CABG, Pacemaker (2013) Family History: States: Unknown Family Hx - Social History Hx Tobacco Use: No Hx Alcohol Use: Yes (occacasional, social) Hx Substance Use: No - Immunization History Hx Tetanus Toxoid Vaccination: No Hx Influenza Vaccination: No Hx Pneumococcal Vaccination: No ED Course And Treatment O2 Sat by Pulse Oximetry: 97 Disposition - Disposition
[2017-08-06 16:34] LABS: RBC URINE 32 /hpf (0-3); URINE BACTERIA MOD (<OCC); URINE BILIRUBIN NEGATIVE (NEGATIVE); URINE BLOOD NEGATIVE (NEGATIVE); URINE COLOR Yellow (YELLOW); URINE GLUCOSE (UA) NORMAL (Normal); URINE KETONE NEGATIVE (NEGATIVE); URINE LEUKOCYTE ESTERASE 3+ Leu/uL (Negative); URINE PROTEIN 1+ mg/dL (NEGATIVE); URINE UROBILINOGEN NORMAL mg/dL (0.2-1.0); WBC URINE 1614 /hpf (0-5)
[2017-08-06 16:39] VITALS: BP 137/81; RESP 18; TEMP 98; O2SAT 96
[2017-08-06 16:56] VITALS: PULSE 74
== END 2017-08-06 17:00 | disposition home or self-care (01) ==
LOC: C.ER 15:15
DX: R33.9 Retention of urine, unspecified (principal); E78.00 Pure hypercholesterolemia, unspecified; I25.10 Atherosclerotic heart disease of native coronary artery without angina pectoris; I12.9 Hypertensive chronic kidney disease with stage 1 through stage 4 chronic kidney disease, or unspecified chronic kidney disease; N18.9 Chronic kidney disease, unspecified

== ENCOUNTER 2018-06-06 07:53 | Inpatient (IN) | payer MEDICARE ==
[2018-06-06] MEDS ORDERED: Labetalol 5mg/ml (4ml) ONE (08:07)
[2018-06-06 08:08] VITALS: BMI 31.1
--- NOTE | 2018-06-06 08:09 | C.PDOC ---
History Of Present Illness 83 years old male with PMHx of CAD (s/p CABG 2013), Hypertension, ICD placement in 2013, hypercholesterolemia, and BPH/prostate cancer, presents to ED for complaints of new onset right sided weakness that began at 10PM yesterday. Lianne melgoza describes symptoms were onset while he was home sitting, then he felt his right arm and leg "get weak" and he felt tired when standing up then fell. Patient states he dragged himself on the floor to get into his bed but symptoms never improved which prompted the ED visit. Patient states symptoms are currently the same intensity as initial onset. Patient also states head injury when he tried to pull himself into bed. Denies LOC, nausea, vomiting, AICD, chest pain, SOB, dizziness, anticoagulant use, or any other physical complaints. Patient currently reports he cannot stand due to right leg weakness. Patient also has Hx of AICD/PPM. Patient is right handed. Further PMHx, [employer] pacemaker and defibrillator placed in 2013, 2016 echocardiogram = 56% EF. Prior echo on 11/16/13 revealed EF 56% and a grade I relaxation abnormality. An EKG was preformed on 01/15/16 shows AV dual paced rhythm with prolonged WI/QTc intervals and a physiologic axis. Patient also states he is a 27 pack per year smoker. Denies drinking or drug use. Past surgical history of CABG in 2013, and pacemaker in 2013. Also, past Hospitalizations for Misfiring defibrillator in 2014. NEW ONSET R SIDED WEAKNESS SINCE 2200 06/05/18. PS ONSET WHILE SITTING, FELT R ARM AND LEG "GET WEAK" TRIED TO STAND UP BUT FELL. PS DRAGGED SELF ON FLOOR TO GET INTO BED BUT SX NEVER IMPROVED. CURRENT SX SAME INTENSITY INITIAL ONSET. PS ?HEAD INJURY WHEN TRIED TO PULL SELF INTO BED BUT NO LOC, NV. PS CANNOT STAND DUE TO R LEG WEAKNESS. HO AICD/PPM BUT DENIES AICD DC, CP, SOB, DIZZY. DENIES ANTICOAG USE. NO OTHER ASSOC SX. R HANDED PMH past medical history of CAD (s/p CABG 2013), Hypertension, ICD placement in 4, hypercholesterolemia, and BPH/prostate cancer. [employer] pacemaker and defibrillator placed in 2013. 2016 echocardiogram = 56% EF. Prior echo on 11/16/13 revealed EF 56% and a grade I relaxation abnormality. An EKG preformed on 01/15/16 shows AV dual paced rhythm with prolonged WI/QTc i ntervals and a physiologic axis. Past medical history: BPH/Prostate Cancer, CAD, hypertension, hypercholesteremia Social: 27 pack year smoker, quit 27 years ago. Denies drinking and drug use. Surgeries: CABG 2013, pacemaker 2013 Hospitalizations: Misfiring defibrillator 2014 EXAM MOD DIST NONTOXIC HEENT +CONTUSION R TEMPORAL AREA NONTEND NO SWELL; PERRLA; EOMI NECK SUPPLE NONTEND LUNGS CTA B/L NO W/R/R SPEAKING WO DIFF CHEST WALL ATRAUM ABD ATRAUM SOFT NT ND NO R EXT +R KNEE CONTUSION AROM WO DIFF NONTEND NEURO SEE NIH BACK +CONTUSION LOWER BACK NONTEND NO DEFORM SKIN +ABRASION R KNEE NO BLEED, FB PSYCH CALM COOPERATIVE INTERACTIVE NO ACUTE INTOX, PSYCHOSIS REMAINDER NEG MDM PER RN, PS WAS DRINKING LAST NIGHT WHILE READING. CALLED EMS THIS MORNING WHEN SX WERE NOT IMPROVING. Time Seen by Provider: 06/06/18 08:03 Chief Complaint (Nursing): Weakness/Neurological Deficit History Per: Patient History/Exam Limitations: no limitations Onset/Duration Of Symptoms: Hrs Current Symptoms Are (Timing): Still Present Recent travel outside of the [place]: No Past Medical History Reviewed: Historical Data, Nursing Documentation, Vital Signs - Medical History PMH: Anxiety, Benign Prostatic Hyperplasia, CAD, Depression, Diverticulitis, HTN, Hypercholesterolemia, Kidney Stones, Malignancy (Prostate), Pneumonia, Chronic Kidney Disease Surgical History: CABG, Pacemaker (2013) Family History: States: Unknown Family Hx - Social History Hx Tobacco Use: No Hx Alcohol Use: Yes (occacasional, social) Hx Substance Use: No - Immunization History Hx Tetanus Toxoid Vaccination: No Hx Influenza Vaccination: No Hx Pneumococcal Vaccination: No Review Of Systems Except As Marked, All Systems Reviewed And Found Negative. Neurological: Positive for: Weakness (Right sided ) Physical Exam - Physical Exam Appears: Non-toxic, In Acute Distress (Moderate), Other (PSYCH CALM COOPERATIVE INTERACTIVE NO ACUTE INTOX, PSYCHOSIS) Skin: Warm, Dry, No Rash, Other (OSITIVE ABRASION ON RIGHT KNEE. NO BLEEDING. NO FOREIGN BODY. ) Head: Atraumatic, Normacephalic, Other (POSITIVE CONTUSION RIGHT TEMPORAL AREA NONTENDER AND NO SWELLING) Eye(s): bilateral: Normal Inspection, PERRL, EOMI Oral Mucosa: Moist Neck: No Midline Cervical Tenderness, Supple Chest: Symmetrical, No Deformity, No Tenderness Cardiovascular: Rhythm Regular, No Murmur Respiratory: Normal Breath Sounds (CLEAR TO AUSCULTATION), No Rales, No Rhonchi, No Wheezing, Other (NARD; Speaking without difficulty ) Gastrointestinal/Abdominal: Bowel Sounds (Active ), Soft, No Tenderness, No Guarding Back: Other (POSITIVE CONTUSION OF LOWER BACK, NONTENDER, NO DEFORMITY.) Extremity: Normal ROM ( ACTIVE ROM WITHOUT DIFFICULTY ), No Tenderness, Other (POSITIVE RIGHT KNEE CONTUSION) Pulses: Left Radial: Normal, Right Radial: Normal Neurological/Psych: Other (SEE NIH) ED Course And Treatment - Laboratory Results Result Diagrams: 06/06/18 08:18 06/06/18 08:18 ECG Rhythm: Sinus Rhythm (67), R BBB - Radiology CXR: Interpreted by Me, Viewed By Me CXR Interpretation: Yes: Other (AICD NOTED. UNCHANGED FROM PRIOR ) - Other Rad Pelvic X-Ray X-Ray: Interpreted by Me, Viewed By Me Interpretation: PROSTATE SEEDS WITH NO FRACTURES CXR X-Ray: Viewed By Me, Read By Radiologist Interpretation: HISTORY: Code Stroke. COMPARISON: Chest x-ray performed 12/18/16. TECHNIQUE: Chest, one view. FINDINGS: Examination limited by habitus and hypoinflation. LUNGS: Mild pulmonary venous congestion. Right hilar prominence. No focal consolidation. Please note that chest x-ray has limited sensitivity for the detection of pulmonary masses. PLEURA: No significant pleural effusion identified. No definite pneumothorax . CARDI OVASCULAR: Left-sided AICD. Cardiomegaly. Ectatic aorta. OSSEOUS STRUCTURES: No acute osseous abnormality identified. VISUALIZED UPPER ABDOMEN: Unremarkable. OTHER FINDINGS: None. IMPRESSION: Hypoinflation. Left-sided AICD. Cardiomegaly. Ectatic aorta. Right hilar prominence. Mild pulmonary venous congestion. Pelvis X-Ray X-Ray: Viewed By Me, Read By Radiologist Interpretation: Indication: Trauma. Pelvis one view. Comparison: None available. Findings: Examination markedly limited by habitus. Prostate radiation seeds. Degenerative changes including bilateral joint space narrowing. Degenerative changes of the lower lumbar spine. No acute displaced fracture appreciated. Impression: Limited study. No acute displaced fracture or dislocation evident. If high clinical index of suspicion, suggest cross- sectional imaging for further evaluation. Otherwise, if symptoms persist or if there is continued clinical concern, x-ray follow-up in 7-10 days should be considered. Prostate radiation seeds. Degenerative changes. - CT Scan/US CT HEAD Other Rad Studies (CT/US): Read By Radiologist, Radiology Report Reviewed CT/US Interpretation: Date of service: 06/06/2018. PROCEDURE: CT HEAD WITHOUT CONTRAST. HISTORY: Code Stroke. COMPARISON: Noncontrast head CT performed 12/18/16. TECHNIQUE: Axial computed tomography images were obtained through the head/brain without intravenous contrast. Radiation dose: Total exam DLP = 1 236.89 mGy-cm. This CT exam was performed using one or more of the following dose reduction techniques: Automated exposure control, adjustment of the mA and/or kV according to patient size, and/or use of iterative reconstruction technique. FINDINGS: HEMORRHAGE: No intracranial hemorrhage. BRAIN: Diffuse atrophy with prominence of the ventricles and sulci noted. No mass effect or edema. Scattered periventricular and subcortical white matter hypodensities, which are nonspecific, but often seen with chronic microvascular ischemic disease. 3 mm chronic left basal ganglia lacunar infarct. Please note that MRI with diffusion imaging is more sensitive in the detection of acute ischemic delta nt. VENTRICLES: No hydrocephalus. CALVARIUM: Unremarkable. PARANASAL SINUSES: Mucosal thickening of the left maxillary sinus and small the fluid bilateral maxillary sinuses. MASTOID AIR CELLS: Unremarkable as visualized. No inflammatory changes. OTHER FINDINGS: None. IMPRESSION: Nonspecific white matter changes. 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 Mild generalized atrophy. Findings discussed with Dr. Smith on 06/06/18 at 8:33 a.m. Head/Neck CTA Other Rad Studies (CT/US): Read By Radiologist, Radiology Report Reviewed CT/US Interpretation: Date of service: 06/06/2018. PROCEDURE: CT Angiography of the NECK AND brain. HISTORY: CODE STROKE R SIDED WEAKNESS. COMPARISON: None available. TECHNIQUE: CT angiography of the intracranial arteries was performed. Coronal and sagittal maximum intensity projection reformated images were generated. This CT exam was performed using one or more of the following dose reduction techniques: Automated exposure control, adjustment of the mA and/or kV according to patient size, and/or use of iterative reconstruction technique. Total exam DLP: 644.79. FINDINGS: RIGHT CAROTID ARTERIES: Common Carotid Artery: Diffuse mural thickening due to atherosclerotic disease is no andres. Carotid Bifurcation: Foci of atherosclerotic disease and mural thickening noted at the right carotid bifurcation. Internal Carotid Artery:Diffuse atherosclerotic disease seen more prominent distally. External Carotid Artery (proximal branches): Normal. LEFT CAROTID ARTERIES: Common Carotid Artery: Diffuse atherosclerotic disease and mural thickening noted. Carotid Bifurcation: Foci of atherosclerotic calcification and mural thickening seen. Internal Carotid Artery:Focal approximately 50 percent stenosis noted at the origin of the left internal carotid artery. Atherosclerotic disease noted distally. External Carotid Artery (proximal branches): Normal. VERTEBRAL ARTERIES: Right Vertebral Artery: Normal. Left Vertebral Artery: The distal segment of the left vertebral artery is small in size. INTERNAL CEREBRAL ARTERIES: Unremarkable. The skull base, petrous, cavernous and supraclinoid segments are bilaterally widely patent. ANTERIOR CEREBRAL ARTERIES: The left A1 is larger than the right.. A1 and A2 segments are widely patent. Smaller distal branches unremarkable, as visualized. MIDDLE CEREBRAL ARTERIES: Unremarkable. M1 and M2 segments are widely patent. Perisylvian branches grossly symmetric. POSTERIOR CIRCULATION: Basilar Artery: Unremarkable. Distal Ana tebral Arteries: Unremarkable. Posterior Cerebral Arteries: There is a origin of right posterior cerebral artery. Posterior Inferior Cerebellar Arteries: Unremarkable. ANEURYSM/ VASCULAR MALFORMATIONS: None. OTHER FINDINGS: Lapv-[id number]-[id number] mucosal thickening of the left maxillary sinus. IMPRESSION: Atherosclerotic disease at the carotid bifurcation and proximal internal carotid arteries left more than right. Focal approximately 50 percent stenosis at the origin of left internal carotid arteries. No evidence of occlusion or critical stenosis in the intracranial arteries. Small size distal segment of the left vertebral artery NIHSS Stroke Scale - Date/Time Evaluation Performed Date Performed: 06/06/18 Time Performed: 08:05 When Was NIHSS Performed: Code Stroke - How Severe is the Stroke Level of Consciousness: 0=Alert LOC to Questions: 0=Both comments correct LOC to commands: 0=Obeys both correctly Best Gaze: 0=Normal Visual: 0=No visual loss Facial: 0=Normal Motor Arm - Left: 0=No drift Motor Arm - Right: 1=Drift noted before 10 sec Motor Leg - Left: 0=No drift Motor Leg - Right: 1=Drift before 5 sec Limb Ataxia: 0=Absent Sensory: 1=Mild to moderate loss Best Language: 0=No aphasia Dysarthia: 1=Mild to moderate slurring Extinction & Inattention (Neglect): 0=Normal, no object Score: 4 NIHSS Stroke Scale 2 - Date/Time Evaluation Performed Date Performed: 06/06/18 Time Performed: 09:05 When Was NIHSS Performed: Code Stroke Re-evaluation - How Severe is the Stroke Level of Consciousness: 0=Alert LOC to Questions: 0=Both comments correct LOC to commands: 0=Obeys both correctly Best Gaze: 0=Normal Visual: 0=No visual loss Facial: 0=Normal Motor Arm - Left: 0=No drift Motor Arm - Right: 1=Drift noted before 10 sec Motor Leg - Left: 0=No drift Motor Leg - Right: 1=Drift before 5 sec Limb Ataxia: 0=Absent Sensory: 1=Mild to moderate loss Best Language: 0=No aphasia Dysarthia: 1=Mild to moderate slurring Extinction & Inattention (Neglect): 0=Normal, no object Score: 4 Progress - Re-Evaluation Re-evaluation Note: 06/06/18 08:31 D/W DR BREWER: CT HEAD REVIEWED, OLD LEFT LACUNAR INFARCT NO ACUTE FINDINGS. 06/06/18 08:39 D/W DR KEBEDE [employer]UR[employer]ER: AWARE OF ER, CT FINDINGS. PLAVIX, ASA, PERMISSIVE HTN, CRESTOR, WILL CONSULT. CTA REPORT PENDING. 06/06/18 09:05 169/70 PS FEELS SAME INITIAL EXAM. NEURO EXAM UNCH. PS DOES NOT REMEMBER PMD BUT DENIES PMD DR STANTON 06/06/18 09:17 D/W DR ROBERTS, STATES IS PT'S PMD. AWARE OF ER FINDINGS WILL ADMIT - Data Reviewed Data Reviewed: Lab, Diagnostic imaging, EKG, Old records - Critical Care Citical Care: Excluding Proc Time Critical Care Time: 90 minutes - Continuity of Care Discussed pt. case with end user consultant/specialty: Neurology rTPA Inclusion/Exclusion - Refusal of Treatment Patient Refused Treatment: No - Inclusion Criteria for Altepase Patient is 18 years or Older: Yes The Clinical Diagnosis of Ischemic Stroke That is Causing a Potentially Disabling Neurological Deficit: Yes Time of Onset is Well Established to be Less Than 270 Minute Before Treatment Would Begin: No Risk/Benefit Discussed With Patient/Family Member Present: Yes - Exclusion Criteria for Altepase Uncontrolled Hypertension at Time of Treatment (Systolic BP above 185 or Diastolic BP above 110 mmHg): No Less Than 3 Months Had a Recent: Head Trauma Active Internal Bleeding: No Known Bleeding Diathesis Including but Not Limited to: Platelets Below 100,000/mm,PTT Above 40 sec After Heparin Use, Current Use of Oral Anitcoagulant With INR Greater Than 1.7 or PT Greater Than 15 secs: No Evidence of an Intracranial Hemorrhage: No Evidence of Major Acute Infarct With Signs Greater Than 1/3 MCA Territory: No Suspicion of Subarachnoid Hemorrhage on Pretreatment Evaluation Even if CT Head Negative For Hemorrhage: No - Warning to TPA With Conditions Following Conditions Weighed Against Anticipated Benefit: No Condition: Age Greater Than 75 years Additional Condition (For 3-4.5 Hour Window): Age Greater Than 80 Medical Decision Making Medical Decision Making: Plan: * Aspirin * Plavix * BBK * CTA Head * CXR * Blood work * EKG * Pelvic X-Ray * CTA Head/Neck PER RN, PATIENT STATES HE WAS DRINKING LAST NIGHT WHILE READING. CALLED EMS THIS MORNING WHEN SYMPTOMS WERE NOT IMPROVING. Disposition Counseled Patient/Family Regarding: Studies Performed, Diagnosis - Disposition Disposition: HOSPITALIZED Disposition Time: 09:18 Condition: SERIOUS - POA Present On Arrival: Falls Or Trauma - Clinical Impression Clinical Impression: Fall, CVA (cerebral vascular accident), Multiple contusions - Scribe Statement The provider has reviewed the documentation as recorded by the Scribe Vannessa Mock All medical record entries made by the Scribe were at my direction and personally dictated by me. I have reviewed the chart and agree that the record accurately reflects my personal performance of the history, physical exam, medical decision making, and the department course for this patient. I have also personally directed, reviewed, and agree with the discharge instructions and disposition.noah
[2018-06-06] MEDS ORDERED: Iodixanol 320 MG/ML 100 ML BOTTLE IV ONE (08:12)
[2018-06-06 08:22] LABS: BASO % 0.3 % (0.0-2.0); EOS % 0.4 % (0.0-4.0); HEMOGLOBIN 15.9 g/dL (12.0-18.0); LYMPH % 7.7 % (20.0-40.0); MEAN CELL VOLUME 88.4 fL (80.0-94.0); MEAN CORPUSCULAR HEMOGLOBIN 29.6 pg (27.0-31.0); MEAN CORPUSCULAR HGB CONC 33.5 g/dL (33.0-37.0); MEAN PLATELET VOLUME 8.4 fL (7.2-11.7); MONO # 1.6 K/uL (0.0-0.8); MONO % 12.3 % (0.0-10.0); NEUT % 79.3 % (50.0-75.0); NRBC % 0.1 % (0.0-2.0); PLATELET COUNT 204 K/uL (130-400); RBC 5.35 Mil/uL (4.40-5.90); RED CELL DISTRIBUTION WIDTH 14.4 % (11.5-14.5); WHITE BLOOD COUNT 12.7 K/uL (4.8-10.8)
[2018-06-06 08:31] LABS: INR 1.2; PROTHROMBIN TIME 12.8 SECONDS (9.7-12.2)
[2018-06-06 08:36] LABS: ALB/GLOB RATIO 1.3 (1.0-2.1); ALBUMIN 4.2 g/dL (3.5-5.0); ALT/SGPT 28 U/L (21-72); AST/SGOT 26 U/L (17-59); BLOOD UREA NITROGEN 20 mg/dL (9-20); CALCIUM 9.5 mg/dl (8.6-10.4); GFR NON-AFRICAN AMERICAN > 60; HDL CHOLESTEROL 45 mg/dL (30-70)
--- NOTE | 2018-06-06 08:37 | CT ---
Date of service: 06/06/2018 PROCEDURE: CT HEAD WITHOUT CONTRAST. HISTORY: Code Stroke COMPARISON: Noncontrast head CT performed 12/18/16 TECHNIQUE: Axial computed tomography images were obtained through the head/brain without intravenous contrast. Radiation dose: Total exam DLP = 1236.89 mGy-cm. This CT exam was performed using one or more of the following dose reduction techniques: Automated exposure control, adjustment of the mA and/or kV according to patient size, and/or use of iterative reconstruction technique. FINDINGS: HEMORRHAGE: No intracranial hemorrhage. BRAIN: Diffuse atrophy with prominence of the ventricles and sulci noted. No mass effect or edema. Scattered periventricular and subcortical white matter hypodensities, which are nonspecific, but often seen with chronic microvascular ischemic disease. 3 mm chronic left basal ganglia lacunar infarct. Please note that MRI with diffusion imaging is more sensitive in the detection of acute ischemic event. VENTRICLES: No hydrocephalus. CALVARIUM: Unremarkable. PARANASAL SINUSES: Mucosal thickening of the left maxillary sinus and small the fluid bilateral maxillary sinuses. MASTOID AIR CELLS: Unremarkable as visualized. No inflammatory changes. OTHER FINDINGS: None. IMPRESSION: Nonspecific white matter changes. 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 Mild generalized atrophy. Findings discussed with Dr. Smith on 06/06/18 at 8:33 a.m.
[2018-06-06 08:47] LABS: LDL CHOLESTEROL 125 mg/dL (0-129)
--- NOTE | 2018-06-06 08:55 | CT ---
Date of service: 06/06/2018 PROCEDURE: CT Angiography of the NECK AND brain. HISTORY: CODE STROKE R SIDED WEAKNESS COMPARISON: None available. TECHNIQUE: CT angiography of the intracranial arteries was performed. Coronal and sagittal maximum intensity projection reformated images were generated. This CT exam was performed using one or more of the following dose reduction techniques: Automated exposure control, adjustment of the mA and/or kV according to patient size, and/or use of iterative reconstruction technique. Total exam DLP: 644.79 FINDINGS: RIGHT CAROTID ARTERIES: Common Carotid Artery: Diffuse mural thickening due to atherosclerotic disease is noted. Carotid Bifurcation: Foci of atherosclerotic disease and mural thickening noted at the right carotid bifurcation. Internal Carotid Artery:Diffuse atherosclerotic disease seen more prominent distally. External Carotid Artery (proximal branches): Normal. LEFT CAROTID ARTERIES: Common Carotid Artery: Diffuse atherosclerotic disease and mural thickening noted. Carotid Bifurcation: Foci of atherosclerotic calcification and mural thickening seen Internal Carotid Artery:Focal approximately 50 percent stenosis noted at the origin of the left internal carotid artery. Atherosclerotic disease noted distally. External Carotid Artery (proximal branches): Normal. VERTEBRAL ARTERIES: Right Vertebral Artery: Normal. Left Vertebral Artery: The distal segment of the left vertebral artery is small in size. INTERNAL CEREBRAL ARTERIES: Unremarkable. The skull base, petrous, cavernous and supraclinoid segments are bilaterally widely patent. ANTERIOR CEREBRAL ARTERIES: The left A1 is larger than the right.. A1 and A2 segments are widely patent. Smaller distal branches unremarkable, as visualized. MIDDLE CEREBRAL ARTERIES: Unremarkable. M1 and M2 segments are widely patent. Perisylvian branches grossly symmetric. POSTERIOR CIRCULATION: Basilar Artery: Unremarkable. Distal Vertebral Arteries: Unremarkable. Posterior Cerebral Arteries: There is a origin of right posterior cerebral artery. Posterior Inferior Cerebellar Arteries: Unremarkable. ANEURYSM/ VASCULAR MALFORMATIONS: None. OTHER FINDINGS: Athn-uq-ufoohxgj mucosal thickening of the left maxillary sinus. IMPRESSION: Atherosclerotic disease at the carotid bifurcation and proximal internal carotid arteries left more than right. Focal approximately 50 percent stenosis at the origin of left internal carotid arteries. No evidence of occlusion or critical stenosis in the intracranial arteries. Small size distal segment of the left vertebral artery
[2018-06-06 09:18] LABS: BANDS 1 % (0-2); LYMPHOCYTE 5 % (20-40); MONOCYTE 10 % (0-10); NEUTROPHIL 84 % (50-75); PLATELET ESTIMATE NORMAL (NORMAL); TOTAL CELLS COUNTED 100
[2018-06-06 09:19] LABS: ANISOCYTOSIS SLIGHT; POLYCHROMIC SLIGHT
[2018-06-06 09:20] LABS: TOXIC GRANULATION PRESENT
[2018-06-06 09:21] LABS: LARGE PLATELETS PRESENT
[2018-06-06 10:39] LABS: URINE BILIRUBIN NEGATIVE (NEGATIVE); URINE BLOOD NEGATIVE (NEGATIVE); URINE CLARITY Clear (Clear); URINE COLOR Yellow (YELLOW); URINE GLUCOSE (UA) NORMAL (Normal); URINE LEUKOCYTE ESTERASE NEG Leu/uL (Negative); URINE PROTEIN NEGATIVE (NEGATIVE); URINE UROBILINOGEN NORMAL mg/dL (0.2-1.0)
--- NOTE | 2018-06-06 12:35 | CP.PCM.HP ---
History of Present Illness - History of Present Illness History of Present Illness: Chief complain: Right-sided weakness HPI: 83-year-old male with a history of multiple medical problems, hypertension, hypercholesterolemia, CAD, ventricular tachycardia, status post AICD. Last night where patient went to the bed, after eating his dinner, and having some wine alcohol. Suddenly he felt numbness in the right side of the body in the leg and approximately. And he was trying to get up and walk to the bedroom, he was having some difficulty time. And he was actually crowling to the bed, and also try to take rest. While he was getting up bed he felt a very heavy on the right side, unable to move, and he called 911 and came to the emergency room. Patient he came into the emergency room it was more than 6 hours of duration, and the patient was not area candidate for any acute intervention for possibly the of the stroke. Code stroke was called. CAT scan of the head was done. Patient now comparing of weakness in the right side. He is also feeling extremely tired and weak and depressed because of the weakness. Patient is able to communicate without any difficulty. He is able to swallow. Facial droop also noted. Patient recently had 2 episodes of electrical shocks from the AICD.Recently while he went to [place] patient developed leg swelling, urinary tract infection.Took antibiotic.Patient was seen by urologist, suggested for circumcision, but the patient is reluctant.No chest pain or shortness of breath no.Denies any other major active systemic symptoms.Clinical examination is unremarkable except elevated blood pressure.1+ pedal edema notedPatient had a August labs reviewedAssessment: 83-year-old male with history of CAD, hypertension, defibrillator. Urinary tract infection. Currently on:Atorvastatin 10 daily metoprolol succinate 25 daily lisinopril 20 daily aspirin 81 daily Lasix, Lexapro, Flomax Past medical history:CAD, hypertension, history of ventricular tachycardia, status post electrical shock.Patient had a history of fall. Surgical history:Patient had 6 bypass, history, ACD and pacemaker. Allergy no known drug allergy. Family history:Father with a heart disease.Mother of natural cause.Patient has 3 sisters healthy.He has 2 kids and grandkids. Social history:Patient used to smoke in the past, for 25 years, quit the but the age of 52.And drinks alcohol socially.No smoking history. Now.Currently living by himself. Review of systems:Denies any headache, no sinus symptoms, no shortness of breath, bilateral leg swelling, no GI symptoms.rt leg and rt arm weakness On examination:HEENT PERRLA, neck supple No thyromegaly was noted and no cervical adenopathy noted Chest bilateral good air entry, no wheezing or rales noted CVS regular heart sound, no murmur Abdomen soft and no organomegaly Bilateral pedal edema noted CHANGE OVER alert awake oriented x3 rt arm and rt leg weakness and reflexes high. facial weakness on the left side noted Labs:Patient was hospitalized November 2016, with rhabdomyolysis. Patient had echocardiogram with normal ejection fraction. Patient also had a stress test which was negative. CT head and CT neck: left lacunar infarct left ICA 50% stenosis no acute changes noted labs noted sinus rhythm Assessment and recommendation:82-year-old male with history of CAD, hypertension, history of defibrillation. 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 pt is not candidate for TPA time > 6rs on asa and statin PT neuro dvt and Gi prophylaxis echo discussed with pt Present on Admission - Present on Admission Any Indicators Present on Admission: No History of DVT/PE: No History of Uncontrolled Diabetes: No Urinary Catheter: No Decubitus Ulcer Present: No Past Patient History - Infectious Disease Hx of Infectious Diseases: None - Past Medical History & Family History Past Medical History?: Yes - Past Social History Smoking Status: Former Smoker - CARDIAC Hx Hypercholesterolemia: Yes Hx Hypertension: Yes Hx Pacemaker: Yes (2013) - PULMONARY Hx Pneumonia: Yes - NEUROLOGICAL Hx Neurological Disorder: No - HEENT Hx HEENT Problems: No - RENAL Hx Chronic Kidney Disease: Yes Hx Kidney Stones: Yes - ENDOCRINE/METABOLIC Hx Endocrine Disorders: No - HEMATOLOGICAL/ONCOLOGICAL Hx Blood Disorders: No - INTEGUMENTARY Hx Dermatological Problems: No - MUSCULOSKELETAL/RHEUMATOLOGICAL Hx Falls: No - GASTROINTESTINAL Hx Diverticulitis: Yes - GENITOURINARY/GYNECOLOGICAL Hx Genitourinary Disorders: Yes (SEE COMMENT) Hx Prostate Cancer: Yes (tx with radiation) - PSYCHIATRIC Hx Anxiety: Yes Hx Depression: Yes Hx Substance Use: No - SURGICAL HISTORY Hx Coronary Artery Bypass Graft: Yes - ANESTHESIA Hx Anesthesia: Yes Hx Anesthesia Reactions: No Hx Malignant Hyperthermia: No Meds Allergies/Adverse Reactions: Allergies Allergy/AdvReac Type Severity Reaction Status Date / Time No Known Allergies Allergy Verified 06/06/18 07:57 Results - Vital Signs Recent Vital Signs: Last Vital Signs Temp 97.7 F 06/06/18 11:45 Pulse 63 06/06/18 11:45 Resp 20 06/06/18 11:45 BP 154/85 H 06/06/18 11:45 Pulse Ox 97 06/06/18 11:45 - Labs Result Diagrams: 06/06/18 08:18 06/06/18 08:18 Labs: Laboratory Results - last 24 hr 06/06/18 06/06/18 06/06/18 08:03 08:18 08:18 WBC 12.7 H D RBC 5.35 Hgb 15.9 Hct 47.3 MCV 88.4 MCH 29.6 MCHC 33.5 RDW 14.4 Plt Count 204 MPV 8.4 Neut % (Auto) 79.3 H Lymph % (Auto) 7.7 L [place] % (Auto) 12.3 H Eos % (Auto) 0.4 Baso % (Auto) 0.3 Neut # (Auto) 10.0 H Lymph # (Auto) 1.0 [place] # (Auto) 1.6 H Eos # (Auto) 0.0 Baso # (Auto) 0.0 Neutrophils % (Manual) 84 H Band Neutrophils % 1 Lymphocytes % (Manual) 5 L Monocytes % (Manual) 10 Toxic Granulation Present Platelet Estimate Normal Large Platelets Present Polychromasia Slight Anisocytosis (manual) Slight PT 12.8 H INR 1.2 APTT 28 Sodium Potassium Chloride Carbon Dioxide Anion Gap BUN Creatinine Est GFR ( Amer) Est GFR (Non-Af Amer) POC Glucose (mg/dL) 125 H Random Glucose Hemoglobin A1c Calcium Total Bilirubin AST ALT Alkaline Phosphatase Troponin I Total Protein Albumin Globulin Albumin/Globulin Ratio Triglycerides Cholesterol LDL Cholesterol Direct HDL Cholesterol Urine Color Urine Clarity Urine pH Ur Specific [place] Urine Protein Urine Glucose (UA) Urine Ketones Urine Blood Urine Nitrate Urine Bilirubin Urine Urobilinogen Ur Leukocyte Esterase Urine WBC (Auto) Urine RBC (Auto) Alcohol, Quantitative Blood Type Antibody Screen 06/06/18 06/06/18 06/06/18 08:18 08:18 08:18 WBC RBC Hgb Hct MCV MCH MCHC RDW Plt Count MPV Neut % (Auto) Lymph % (Auto) [place] % (Auto) Eos % (Auto) Baso % (Auto) Neut # (Auto) Lymph # (Auto) [place] # (Auto) Eos # (Auto) Baso # (Auto) Neutrophils % (Manual) Band Neutrophils % Lymphocytes % (Manual) Monocytes % (Manual) Toxic Granulation Platelet Estimate Large Platelets Polychromasia Anisocytosis (manual) PT INR APTT Sodium 144 Potassium 3.9 Chloride 108 H Carbon Dioxide 22 Anion Gap 17 BUN 20 Creatinine 0.9 Est GFR ( Amer) > 60 Est GFR (Non-Af Amer) > 60 POC Glucose (mg/dL) Random Glucose 120 H Hemoglobin A1c 6.2 Calcium 9.5 Total Bilirubin 0.9 AST 26 ALT 28 Alkaline Phosphatase 85 Troponin I 0.1220 H* Total Protein 7.4 Albumin 4.2 Globulin 3.2 Albumin/Globulin Ratio 1.3 Triglycerides 126 Cholesterol 198 LDL Cholesterol Direct 125 HDL Cholesterol 45 Urine Color Urine Clarity Urine pH Ur Specific [place] Urine Protein Urine Glucose (UA) Urine Ketones Urine Blood Urine Nitrate Urine Bilirubin Urine Urobilinogen Ur Leukocyte Esterase Urine WBC (Auto) Urine RBC (Auto) Alcohol, Quantitative < 10 Blood Type O NEGATIVE Antibody Screen Negative 06/06/18 10:25 WBC RBC Hgb Hct MCV MCH MCHC RDW Plt Count MPV Neut % (Auto) Lymph % (Auto) [place] % (Auto) Eos % (Auto) Baso % (Auto) Neut # (Auto) Lymph # (Auto) [place] # (Auto) Eos # (Auto) Baso # (Auto) Neutrophils % (Manual) Band Neutrophils % Lymphocytes % (Manual) Monocytes % (Manual) Toxic Granulation Platelet Estimate Large Platelets Polychromasia Anisocytosis (manual) PT INR APTT Sodium Potassium Chloride Carbon Dioxide Anion Gap BUN Creatinine Est GFR ( Amer) Est GFR (Non-Af Amer) POC Glucose (mg/dL) Random Glucose Hemoglobin A1c Calcium Total Bilirubin AST ALT Alkaline Phosphatase Troponin I Total Protein Albumin Globulin Albumin/Globulin Ratio Triglycerides Cholesterol LDL Cholesterol Direct HDL Cholesterol Urine Color Yellow Urine Clarity Clear Urine pH 5.0 Ur Specific [place] 1.056 H Urine Protein Negative Urine Glucose (UA) Normal Urine Ketones Negative Urine Blood Negative Urine Nitrate Negative Urine Bilirubin Negative Urine Urobilinogen Normal Ur Leukocyte Esterase Neg Urine WBC (Auto) < 1 Urine RBC (Auto) 1 Alcohol, Quantitative Blood Type Antibody Screen
--- NOTE | 2018-06-06 12:57 | RAD ---
HISTORY: Code Stroke COMPARISON: Chest x-ray performed 12/18/16 TECHNIQUE: Chest, one view. FINDINGS: Examination limited by habitus and hypoinflation. LUNGS: Mild pulmonary venous congestion. Right hilar prominence. No focal consolidation. Please note that chest x-ray has limited sensitivity for the detection of pulmonary masses. PLEURA: No significant pleural effusion identified. No definite pneumothorax . CARDIOVASCULAR: Left-sided AICD. Cardiomegaly. Ectatic aorta. OSSEOUS STRUCTURES: No acute osseous abnormality identified. VISUALIZED UPPER ABDOMEN: Unremarkable. OTHER FINDINGS: None. IMPRESSION: Hypoinflation. Left-sided AICD. Cardiomegaly. Ectatic aorta. Right hilar prominence. Mild pulmonary venous congestion.
[2018-06-06 14:49] LABS: TROPONIN I 0.123 ng/mL (0.00-0.120)
--- NOTE | 2018-06-06 15:07 | RAD ---
Indication: Trauma Pelvis one view Comparison: None available Findings: Examination markedly limited by habitus. Prostate radiation seeds. Degenerative changes including bilateral joint space narrowing. Degenerative changes of the lower lumbar spine. No acute displaced fracture appreciated. Impression: Limited study. No acute displaced fracture or dislocation evident. If high clinical index of suspicion, suggest cross-sectional imaging for further evaluation. Otherwise, if symptoms persist or if there is continued clinical concern, x-ray follow-up in 7-10 days should be considered. Prostate radiation seeds. Degenerative changes.
--- NOTE | 2018-06-06 17:19 | CP.PCM.CON ---
History of Present Illness - History of Present Illness History of Present Illness: Neurology Consultation Note: Mr. Patel is an 83-year-old man with a past medical history of CAD, hypertension, history of ventricular tachycardia, status post electrical shock, CABG, ACD and pacemaker, who developed right side weakness yesterday at 10 PM, but he went to bed and woke up with the same symptoms this morning. He was not a candidate for IV tPA due to being outside the time window. Non-contrast CT scan of the head showed chronic lacunar infarcts, but no acute findings. CTA of the head/neck did not show a large vessel occlusion. Review of Systems - Review of Systems All systems: reviewed and no additional remarkable complaints except Past Patient History - Infectious Disease Hx of Infectious Diseases: None - Past Medical History & Family History Past Medical History?: Yes - Past Social History Smoking Status: Heavy Smoker > 10 Cigarettes Daily - CARDIAC Hx Hypercholesterolemia: Yes Hx Hypertension: Yes Hx Pacemaker: Yes (2013) - PULMONARY Hx Pneumonia: Yes - NEUROLOGICAL Hx Neurological Disorder: No - HEENT Hx HEENT Problems: No - RENAL Hx Chronic Kidney Disease: Yes Hx Kidney Stones: Yes - ENDOCRINE/METABOLIC Hx Endocrine Disorders: No - HEMATOLOGICAL/ONCOLOGICAL Hx Blood Disorders: No - INTEGUMENTARY Hx Dermatological Problems: No - MUSCULOSKELETAL/RHEUMATOLOGICAL Hx Falls: Yes - GASTROINTESTINAL Hx Diverticulitis: Yes - GENITOURINARY/GYNECOLOGICAL Hx Genitourinary Disorders: Yes (SEE COMMENT) Hx Prostate Cancer: Yes (tx with radiation) - PSYCHIATRIC Hx Anxiety: Yes Hx Depression: Yes Hx Substance Use: No - SURGICAL HISTORY Hx Coronary Artery Bypass Graft: Yes - ANESTHESIA Hx Anesthesia: Yes Hx Anesthesia Reactions: No Hx Malignant Hyperthermia: No Meds Allergies/Adverse Reactions: Allergies Allergy/AdvReac Type Severity Reaction Status Date / Time No Known Allergies Allergy Verified 06/06/18 07:57 - Medications Medications: Current Medications Aspirin (Aspirin Chewable) 81 mg PO DAILY [facility] Enoxaparin Sodium (Lovenox) 40 mg SC DAILY [facility] Escitalopram Oxalate (Lexapro) 5 mg PO DAILY PRN PRN Reason: Anxiety Lisinopril (Zestril) 20 mg PO DAILY [facility] Metoprolol Succinate (Toprol Xl) 25 mg PO DAILY [facility] Rosuvastatin Calcium (Crestor) 20 mg PO HS [facility] Tamsulosin HCl (Flomax) 0.4 mg PO DAILY [facility] Physical Exam - Constitutional Appears: Well - Head Exam Head Exam: ATRAUMATIC, NORMAL INSPECTION, NORMOCEPHALIC - Eye Exam Eye Exam: EOMI, Normal appearance, PERRL - ENT Exam ENT Exam: Mucous Membranes Moist, Normal Exam - Neck Exam Neck exam: Positive for: Normal Inspection - Respiratory Exam Respiratory Exam: Clear to Auscultation Bilateral, NORMAL BREATHING PATTERN - Cardiovascular Exam Cardiovascular Exam: REGULAR RHYTHM, +S1, +S2 - GI/Abdominal Exam GI & Abdominal Exam: Normal Bowel Sounds, Soft. absent: Tenderness - Rectal Exam Rectal Exam: Deferred - Back Exam Back exam: NORMAL INSPECTION - Neurological Exam Neurological exam: Abnormal Gait, Alert, CN II-XII Intact, Oriented x3 Additional comments: Right side is antigravity, but 3/5 in strength and coordination is impaired. He has right facial droop as well. Left side is normal. Sensation is intact. NIHSS = 4 Results - Vital Signs Recent Vital Signs: Last Vital Signs Temp 98.3 F 06/06/18 16:00 Pulse 71 06/06/18 16:00 Resp 20 06/06/18 16:00 BP 157/72 H 06/06/18 16:00 Pulse Ox 97 06/06/18 16:00 - Labs Result Diagrams: 06/06/18 08:18 06/06/18 08:18 Labs: Laboratory Results - last 24 hr 06/06/18 06/06/18 06/06/18 08:03 08:18 08:18 WBC 12.7 H D RBC 5.35 Hgb 15.9 Hct 47.3 MCV 88.4 MCH 29.6 MCHC 33.5 RDW 14.4 Plt Count 204 MPV 8.4 Neut % (Auto) 79.3 H Lymph % (Auto) 7.7 L [place] % (Auto) 12.3 H Eos % (Auto) 0.4 Baso % (Auto) 0.3 Neut # (Auto) 10.0 H Lymph # (Auto) 1.0 [place] # (Auto) 1.6 H Eos # (Auto) 0.0 Baso # (Auto) 0.0 Neutrophils % (Manual) 84 H Band Neutrophils % 1 Lymphocytes % (Manual) 5 L Monocytes % (Manual) 10 Toxic Granulation Present Platelet Estimate Normal Large Platelets Present Polychromasia Slight Anisocytosis (manual) Slight PT 12.8 H INR 1.2 APTT 28 Sodium Potassium Chloride Carbon Dioxide Anion Gap BUN Creatinine Est GFR ( Amer) Est GFR (Non-Af Amer) POC Glucose (mg/dL) 125 H Random Glucose Hemoglobin A1c Calcium Total Bilirubin AST ALT Alkaline Phosphatase Total Creatine Kinase CK-MB (Mass) Troponin I Total Protein Albumin Globulin Albumin/Globulin Ratio Triglycerides Cholesterol LDL Cholesterol Direct HDL Cholesterol Urine Color Urine Clarity Urine pH Ur Specific [place] Urine Protein Urine Glucose (UA) Urine Ketones Urine Blood Urine Nitrate Urine Bilirubin Urine Urobilinogen Ur Leukocyte Esterase Urine WBC (Auto) Urine RBC (Auto) Alcohol, Quantitative Blood Type Antibody Screen 06/06/18 06/06/18 06/06/18 08:18 08:18 08:18 WBC RBC Hgb Hct MCV MCH MCHC RDW Plt Count MPV Neut % (Auto) Lymph % (Auto) [place] % (Auto) Eos % (Auto) Baso % (Auto) Neut # (Auto) Lymph # (Auto) [place] # (Auto) Eos # (Auto) Baso # (Auto) Neutrophils % (Manual) Band Neutrophils % Lymphocytes % (Manual) Monocytes % (Manual) Toxic Granulation Platelet Estimate Large Platelets Polychromasia Anisocytosis (manual) PT INR APTT Sodium 144 Potassium 3.9 Chloride 108 H Carbon Dioxide 22 Anion Gap 17 BUN 20 Creatinine 0.9 Est GFR ( Amer) > 60 Est GFR (Non-Af Amer) > 60 POC Glucose (mg/dL) Random Glucose 120 H Hemoglobin A1c 6.2 Calcium 9.5 Total Bilirubin 0.9 AST 26 ALT 28 Alkaline Phosphatase 85 Total Creatine Kinase CK-MB (Mass) Troponin I 0.1220 H* Total Protein 7.4 Albumin 4.2 Globulin 3.2 Albumin/Globulin Ratio 1.3 Triglycerides 126 Cholesterol 198 LDL Cholesterol Direct 125 HDL Cholesterol 45 Urine Color Urine Clarity Urine pH Ur Specific [place] Urine Protein Urine Glucose (UA) Urine Ketones Urine Blood Urine Nitrate Urine Bilirubin Urine Urobilinogen Ur Leukocyte Esterase Urine WBC (Auto) Urine RBC (Auto) Alcohol, Quantitative < 10 Blood Type O NEGATIVE Antibody Screen Negative 06/06/18 06/06/18 10:25 13:45 WBC RBC Hgb Hct MCV MCH MCHC RDW Plt Count MPV Neut % (Auto) Lymph % (Auto) [place] % (Auto) Eos % (Auto) Baso % (Auto) Neut # (Auto) Lymph # (Auto) [place] # (Auto) Eos # (Auto) Baso # (Auto) Neutrophils % (Manual) Band Neutrophils % Lymphocytes % (Manual) Monocytes % (Manual) Toxic Granulation Platelet Estimate Large Platelets Polychromasia Anisocytosis (manual) PT INR APTT Sodium Potassium Chloride Carbon Dioxide Anion Gap BUN Creatinine Est GFR ( Amer) Est GFR (Non-Af Amer) POC Glucose (mg/dL) Random Glucose Hemoglobin A1c Calcium Total Bilirubin AST ALT Alkaline Phosphatase Total Creatine Kinase 317 H CK-MB (Mass) 5.00 H Troponin I 0.1230 H* Total Protein Albumin Globulin Albumin/Globulin Ratio Triglycerides Cholesterol LDL Cholesterol Direct HDL Cholesterol Urine Color Yellow Urine Clarity Clear Urine pH 5.0 Ur Specific [place] 1.056 H Urine Protein Negative Urine Glucose (UA) Normal Urine Ketones Negative Urine Blood Negative Urine Nitrate Negative Urine Bilirubin Negative Urine Urobilinogen Normal Ur Leukocyte Esterase Neg Urine WBC (Auto) < 1 Urine RBC (Auto) 1 Alcohol, Quantitative Blood Type Antibody Screen Assessment & Plan (1) CVA (cerebral vascular accident) Assessment and Plan: Likely a subcortical lacunar infarct in the left basal ganglia or thalamus. I recommend the followin. Telemetry 2. Repeat non-contrast CT head tomorrow. 3. Echocardiogram 4. Carotid ultrasounds bilaterally. 5. Check hemoglobin A-1 C, lipid panel, ESR, CRP, AIDE, B12, folate, TSH, vitamin D levels. 6. Plavix 300 mg PO x 1. Baby aspirin 81 mg daily. Then, Plavix 75 mg daily. 7. Q 4 hour neuro-checks. 8. Statin for goal LDL less than 70. 9. Permissive hypertension, do not treat blood pressure less than 220/110 (may start to normalize 48-hours after symptom onset). 10. PT/OT eval and treatment 11. IV fluids normal saline at 100 mL per hour. 12. Case management consult. Please do not hesitate to call back with any new developments, data updates or questions. Thank you for the opportunity to participate in the care of this patient. Status: Acute
[2018-06-06 23:22] LABS: CK-MB 2.75 ng/mL (0.0-3.38); TROPONIN I 0.067 ng/mL (0.00-0.120)
--- NOTE | 2018-06-07 00:37 | CP.PCM.CON ---
History of Present Illness - History of Present Illness History of Present Illness: Chief complain: Right-sided weakness HPI: 83-year-old male with a history of multiple medical problems, hypertension, hypercholesterolemia, CAD, ventricular tachycardia, status post AICD. Last night where patient went to the bed, after eating his dinner, and having some wine alcohol. Suddenly he felt numbness in the right side of the body in the leg and approximately. And he was trying to get up and walk to the bedroom, he was having some difficulty time. And he was actually crowling to the bed, and also try to take rest. While he was getting up bed he felt a very heavy on the right side, unable to move, and he called 911 and came to the emergency room. Patient he came into the emergency room it was more than 6 hours of duration, and the patient was not area candidate for any acute intervention for possibly the of the stroke. Code stroke was called. CAT scan of the head was done. Patient now comparing of weakness in the right side. He is also feeling extremely tired and weak and depressed because of the weakness. Patient is able to communicate without any difficulty. He is able to swallow. Facial droop also noted. Patient recently had 2 episodes of electrical shocks from the AICD.Recently while he went to [place] patient developed leg swelling, urinary tract infection.Took antibiotic.Patient was seen by urologist, suggested for circumcision, but the patient is reluctant.No chest pain or shortness of breath no.Denies any other major active systemic symptoms.Clinical examination is unremarkable except elevated blood pressure.1+ pedal edema noted. Past Patient History - Infectious Disease Hx of Infectious Diseases: None - Past Medical History & Family History Past Medical History?: Yes - Past Social History Smoking Status: Former Smoker - CARDIAC Hx Hypercholesterolemia: Yes Hx Hypertension: Yes Hx Pacemaker: Yes (2013) - PULMONARY Hx Pneumonia: Yes - NEUROLOGICAL Hx Neurological Disorder: No - HEENT Hx HEENT Problems: No - RENAL Hx Chronic Kidney Disease: Yes Hx Kidney Stones: Yes - ENDOCRINE/METABOLIC Hx Endocrine Disorders: No - HEMATOLOGICAL/ONCOLOGICAL Hx Blood Disorders: No - INTEGUMENTARY Hx Dermatological Problems: No - MUSCULOSKELETAL/RHEUMATOLOGICAL Hx Falls: No - GASTROINTESTINAL Hx Diverticulitis: Yes - GENITOURINARY/GYNECOLOGICAL Hx Genitourinary Disorders: Yes (SEE COMMENT) Hx Prostate Cancer: Yes (tx with radiation) - PSYCHIATRIC Hx Anxiety: Yes Hx Depression: Yes Hx Substance Use: No - SURGICAL HISTORY Hx Coronary Artery Bypass Graft: Yes - ANESTHESIA Hx Anesthesia: Yes Hx Anesthesia Reactions: No Hx Malignant Hyperthermia: No Meds Allergies/Adverse Reactions: Allergies Allergy/AdvReac Type Severity Reaction Status Date / Time No Known Allergies Allergy Verified 06/06/18 07:57 - Medications Medications: Current Medications Aspirin (Aspirin Chewable) 81 mg PO DAILY [facility] Clopidogrel Bisulfate (Plavix) 75 mg PO DAILY [facility] Enoxaparin Sodium (Lovenox) 40 mg SC DAILY [facility] Escitalopram Oxalate (Lexapro) 5 mg PO DAILY PRN PRN Reason: Anxiety Lisinopril (Zestril) 20 mg PO DAILY [facility] Metoprolol Succinate (Toprol Xl) 25 mg PO DAILY [facility] Rosuvastatin Calcium (Crestor) 20 mg PO HS [facility] Last Admin: 06/06/18 21:26 Dose: 20 mg Tamsulosin HCl (Flomax) 0.4 mg PO DAILY [facility] Physical Exam - Constitutional Appears: Non-toxic - Head Exam Head Exam: NORMAL INSPECTION - Eye Exam Eye Exam: absent: Scleral icterus - Neck Exam Neck exam: Positive for: Full Rom - Respiratory Exam Respiratory Exam: NORMAL BREATHING PATTERN - Cardiovascular Exam Cardiovascular Exam: REGULAR RHYTHM - GI/Abdominal Exam GI & Abdominal Exam: Soft - Extremities Exam Extremities exam: Negative for: calf tenderness, pedal edema - Neurological Exam Neurological exam: Alert, Oriented x3 Additional comments: right hemiparesis Results - Vital Signs Recent Vital Signs: Last Vital Signs Temp 98.3 F 06/06/18 16:00 Pulse 71 06/06/18 16:00 Resp 20 06/06/18 16:00 BP 157/72 H 06/06/18 16:00 Pulse Ox 97 06/06/18 16:00 - Labs Result Diagrams: 06/06/18 08:18 06/06/18 08:18 Labs: Laboratory Results - last 24 hr 06/06/18 06/06/18 06/06/18 08:03 08:18 08:18 WBC 12.7 H D RBC 5.35 Hgb 15.9 Hct 47.3 MCV 88.4 MCH 29.6 MCHC 33.5 RDW 14.4 Plt Count 204 MPV 8.4 Neut % (Auto) 79.3 H Lymph % (Auto) 7.7 L [place] % (Auto) 12.3 H Eos % (Auto) 0.4 Baso % (Auto) 0.3 Neut # (Auto) 10.0 H Lymph # (Auto) 1.0 [place] # (Auto) 1.6 H Eos # (Auto) 0.0 Baso # (Auto) 0.0 Neutrophils % (Manual) 84 H Band Neutrophils % 1 Lymphocytes % (Manual) 5 L Monocytes % (Manual) 10 Toxic Granulation Present Platelet Estimate Normal Large Platelets Present Polychromasia Slight Anisocytosis (manual) Slight PT 12.8 H INR 1.2 APTT 28 Sodium Potassium Chloride Carbon Dioxide Anion Gap BUN Creatinine Est GFR ( Amer) Est GFR (Non-Af Amer) POC Glucose (mg/dL) 125 H Random Glucose Hemoglobin A1c Calcium Total Bilirubin AST ALT Alkaline Phosphatase Total Creatine Kinase CK-MB (Mass) Troponin I Total Protein Albumin Globulin Albumin/Globulin Ratio Triglycerides Cholesterol LDL Cholesterol Direct HDL Cholesterol Urine Color Urine Clarity Urine pH Ur Specific [place] Urine Protein Urine Glucose (UA) Urine Ketones Urine Blood Urine Nitrate Urine Bilirubin Urine Urobilinogen Ur Leukocyte Esterase Urine WBC (Auto) Urine RBC (Auto) Alcohol, Quantitative Blood Type Antibody Screen 06/06/18 06/06/18 06/06/18 08:18 08:18 08:18 WBC RBC Hgb Hct MCV MCH MCHC RDW Plt Count MPV Neut % (Auto) Lymph % (Auto) [place] % (Auto) Eos % (Auto) Baso % (Auto) Neut # (Auto) Lymph # (Auto) [place] # (Auto) Eos # (Auto) Baso # (Auto) Neutrophils % (Manual) Band Neutrophils % Lymphocytes % (Manual) Monocytes % (Manual) Toxic Granulation Platelet Estimate Large Platelets Polychromasia Anisocytosis (manual) PT INR APTT Sodium 144 Potassium 3.9 Chloride 108 H Carbon Dioxide 22 Anion Gap 17 BUN 20 Creatinine 0.9 Est GFR ( Amer) > 60 Est GFR (Non-Af Amer) > 60 POC Glucose (mg/dL) Random Glucose 120 H Hemoglobin A1c 6.2 Calcium 9.5 Total Bilirubin 0.9 AST 26 ALT 28 Alkaline Phosphatase 85 Total Creatine Kinase CK-MB (Mass) Troponin I 0.1220 H* Total Protein 7.4 Albumin 4.2 Globulin 3.2 Albumin/Globulin Ratio 1.3 Triglycerides 126 Cholesterol 198 LDL Cholesterol Direct 125 HDL Cholesterol 45 Urine Color Urine Clarity Urine pH Ur Specific [place] Urine Protein Urine Glucose (UA) Urine Ketones Urine Blood Urine Nitrate Urine Bilirubin Urine Urobilinogen Ur Leukocyte Esterase Urine WBC (Auto) Urine RBC (Auto) Alcohol, Quantitative < 10 Blood Type O NEGATIVE Antibody Screen Negative 06/06/18 06/06/18 06/06/18 10:25 13:45 22:40 WBC RBC Hgb Hct MCV MCH MCHC RDW Plt Count MPV Neut % (Auto) Lymph % (Auto) [place] % (Auto) Eos % (Auto) Baso % (Auto) Neut # (Auto) Lymph # (Auto) [place] # (Auto) Eos # (Auto) Baso # (Auto) Neutrophils % (Manual) Band Neutrophils % Lymphocytes % (Manual) Monocytes % (Manual) Toxic Granulation Platelet Estimate Large Platelets Polychromasia Anisocytosis (manual) PT INR APTT Sodium Potassium Chloride Carbon Dioxide Anion Gap BUN Creatinine Est GFR ( Amer) Est GFR (Non-Af Amer) POC Glucose (mg/dL) Random Glucose Hemoglobin A1c Calcium Total Bilirubin AST ALT Alkaline Phosphatase Total Creatine Kinase 317 H 237 H CK-MB (Mass) 5.00 H 2.75 Troponin I 0.1230 H* 0.0670 Total Protein Albumin Globulin Albumin/Globulin Ratio Triglycerides Cholesterol LDL Cholesterol Direct HDL Cholesterol Urine Color Yellow Urine Clarity Clear Urine pH 5.0 Ur Specific [place] 1.056 H Urine Protein Negative Urine Glucose (UA) Normal Urine Ketones Negative Urine Blood Negative Urine Nitrate Negative Urine Bilirubin Negative Urine Urobilinogen Normal Ur Leukocyte Esterase Neg Urine WBC (Auto) < 1 Urine RBC (Auto) 1 Alcohol, Quantitative Blood Type Antibody Screen Assessment & Plan - Assessment and Plan (Free Text) Assessment: CVA w/ Rt sided hemiparesis ACS +trops HTN CAD Hx of Vtach s/p AICD Plan: ECHO Cont present meds(ASA, plavix, Lovenox, beta dani,, ACEI) Neuro follow up - Date & Time Date: 06/06/18 Time: 09:00
--- NOTE | 2018-06-07 07:07 | CP.PCM.CON ---
Past Patient History - Infectious Disease Hx of Infectious Diseases: None - Past Medical History & Family History Past Medical History?: Yes - Past Social History Smoking Status: Former Smoker - CARDIAC Hx Hypercholesterolemia: Yes Hx Hypertension: Yes Hx Pacemaker: Yes (2013) - PULMONARY Hx Pneumonia: Yes - NEUROLOGICAL Hx Neurological Disorder: No - HEENT Hx HEENT Problems: No - RENAL Hx Chronic Kidney Disease: Yes Hx Kidney Stones: Yes - ENDOCRINE/METABOLIC Hx Endocrine Disorders: No - HEMATOLOGICAL/ONCOLOGICAL Hx Blood Disorders: No - INTEGUMENTARY Hx Dermatological Problems: No - MUSCULOSKELETAL/RHEUMATOLOGICAL Hx Falls: No - GASTROINTESTINAL Hx Diverticulitis: Yes - GENITOURINARY/GYNECOLOGICAL Hx Genitourinary Disorders: Yes (SEE COMMENT) Hx Prostate Cancer: Yes (tx with radiation) - PSYCHIATRIC Hx Anxiety: Yes Hx Depression: Yes Hx Substance Use: No - SURGICAL HISTORY Hx Coronary Artery Bypass Graft: Yes - ANESTHESIA Hx Anesthesia: Yes Hx Anesthesia Reactions: No Hx Malignant Hyperthermia: No Meds Allergies/Adverse Reactions: Allergies Allergy/AdvReac Type Severity Reaction Status Date / Time No Known Allergies Allergy Verified 06/06/18 07:57 - Medications Medications: Current Medications Aspirin (Aspirin Chewable) 81 mg PO DAILY [facility] Clopidogrel Bisulfate (Plavix) 75 mg PO DAILY [facility] Enoxaparin Sodium (Lovenox) 40 mg SC DAILY [facility] Escitalopram Oxalate (Lexapro) 5 mg PO DAILY PRN PRN Reason: Anxiety Lisinopril (Zestril) 20 mg PO DAILY [facility] Metoprolol Succinate (Toprol Xl) 25 mg PO DAILY [facility] Rosuvastatin Calcium (Crestor) 20 mg PO HS [facility] Last Admin: 06/06/18 21:26 Dose: 20 mg Tamsulosin HCl (Flomax) 0.4 mg PO DAILY [facility] Results - Vital Signs Recent Vital Signs: Last Vital Signs Temp 98.1 F 06/07/18 00:00 Pulse 80 06/07/18 00:00 Resp 20 06/07/18 00:00 BP 168/86 H 06/07/18 00:00 Pulse Ox 71 L 06/07/18 00:00 - Labs Result Diagrams: 06/06/18 08:18 06/06/18 08:18 Labs: Laboratory Results - last 24 hr 06/06/18 06/06/18 06/06/18 08:03 08:18 08:18 WBC 12.7 H D RBC 5.35 Hgb 15.9 Hct 47.3 MCV 88.4 MCH 29.6 MCHC 33.5 RDW 14.4 Plt Count 204 MPV 8.4 Neut % (Auto) 79.3 H Lymph % (Auto) 7.7 L [place] % (Auto) 12.3 H Eos % (Auto) 0.4 Baso % (Auto) 0.3 Neut # (Auto) 10.0 H Lymph # (Auto) 1.0 [place] # (Auto) 1.6 H Eos # (Auto) 0.0 Baso # (Auto) 0.0 Neutrophils % (Manual) 84 H Band Neutrophils % 1 Lymphocytes % (Manual) 5 L Monocytes % (Manual) 10 Toxic Granulation Present Platelet Estimate Normal Large Platelets Present Polychromasia Slight Anisocytosis (manual) Slight PT 12.8 H INR 1.2 APTT 28 Sodium Potassium Chloride Carbon Dioxide Anion Gap BUN Creatinine Est GFR ( Amer) Est GFR (Non-Af Amer) POC Glucose (mg/dL) 125 H Random Glucose Hemoglobin A1c Calcium Total Bilirubin AST ALT Alkaline Phosphatase Total Creatine Kinase CK-MB (Mass) Troponin I Total Protein Albumin Globulin Albumin/Globulin Ratio Triglycerides Cholesterol LDL Cholesterol Direct HDL Cholesterol Urine Color Urine Clarity Urine pH Ur Specific [place] Urine Protein Urine Glucose (UA) Urine Ketones Urine Blood Urine Nitrate Urine Bilirubin Urine Urobilinogen Ur Leukocyte Esterase Urine WBC (Auto) Urine RBC (Auto) Alcohol, Quantitative Blood Type Antibody Screen 06/06/18 06/06/18 06/06/18 08:18 08:18 08:18 WBC RBC Hgb Hct MCV MCH MCHC RDW Plt Count MPV Neut % (Auto) Lymph % (Auto) [place] % (Auto) Eos % (Auto) Baso % (Auto) Neut # (Auto) Lymph # (Auto) [place] # (Auto) Eos # (Auto) Baso # (Auto) Neutrophils % (Manual) Band Neutrophils % Lymphocytes % (Manual) Monocytes % (Manual) Toxic Granulation Platelet Estimate Large Platelets Polychromasia Anisocytosis (manual) PT INR APTT Sodium 144 Potassium 3.9 Chloride 108 H Carbon Dioxide 22 Anion Gap 17 BUN 20 Creatinine 0.9 Est GFR ( Amer) > 60 Est GFR (Non-Af Amer) > 60 POC Glucose (mg/dL) Random Glucose 120 H Hemoglobin A1c 6.2 Calcium 9.5 Total Bilirubin 0.9 AST 26 ALT 28 Alkaline Phosphatase 85 Total Creatine Kinase CK-MB (Mass) Troponin I 0.1220 H* Total Protein 7.4 Albumin 4.2 Globulin 3.2 Albumin/Globulin Ratio 1.3 Triglycerides 126 Cholesterol 198 LDL Cholesterol Direct 125 HDL Cholesterol 45 Urine Color Urine Clarity Urine pH Ur Specific [place] Urine Protein Urine Glucose (UA) Urine Ketones Urine Blood Urine Nitrate Urine Bilirubin Urine Urobilinogen Ur Leukocyte Esterase Urine WBC (Auto) Urine RBC (Auto) Alcohol, Quantitative < 10 Blood Type O NEGATIVE Antibody Screen Negative 06/06/18 06/06/18 06/06/18 10:25 13:45 22:40 WBC RBC Hgb Hct MCV MCH MCHC RDW Plt Count MPV Neut % (Auto) Lymph % (Auto) [place] % (Auto) Eos % (Auto) Baso % (Auto) Neut # (Auto) Lymph # (Auto) [place] # (Auto) Eos # (Auto) Baso # (Auto) Neutrophils % (Manual) Band Neutrophils % Lymphocytes % (Manual) Monocytes % (Manual) Toxic Granulation Platelet Estimate Large Platelets Polychromasia Anisocytosis (manual) PT INR APTT Sodium Potassium Chloride Carbon Dioxide Anion Gap BUN Creatinine Est GFR ( Amer) Est GFR (Non-Af Amer) POC Glucose (mg/dL) Random Glucose Hemoglobin A1c Calcium Total Bilirubin AST ALT Alkaline Phosphatase Total Creatine Kinase 317 H 237 H CK-MB (Mass) 5.00 H 2.75 Troponin I 0.1230 H* 0.0670 Total Protein Albumin Globulin Albumin/Globulin Ratio Triglycerides Cholesterol LDL Cholesterol Direct HDL Cholesterol Urine Color Yellow Urine Clarity Clear Urine pH 5.0 Ur Specific [place] 1.056 H Urine Protein Negative Urine Glucose (UA) Normal Urine Ketones Negative Urine Blood Negative Urine Nitrate Negative Urine Bilirubin Negative Urine Urobilinogen Normal Ur Leukocyte Esterase Neg Urine WBC (Auto) < 1 Urine RBC (Auto) 1 Alcohol, Quantitative Blood Type Antibody Screen
--- NOTE | 2018-06-07 07:07 | CP.PCM.CON ---
History of Present Illness - History of Present Illness History of Present Illness: CONSULTATON DICTATED NEW RT LEG > ARM WEAKNESS WITHOUT SPEECH AND VISION IMPAIRMENT LEFT SUBCORTICAL DYSFUNCTION - SMALL VESSEL DISEASE CAROTID/CARDIAC/DYSLIPIDEMIA ADD PLAVIX WITH ASA CONTINUE THE PRESENT MANAGEMENT OOB/PT/OT REPEAT CAT/EEG/CAROTID/ECHO CARDIO TO SEE NEEDS PSG AN OP R/O SRBD - WHICH COULD BE THE COFOUNDING RISK FACTOR Past Patient History - Infectious Disease Hx of Infectious Diseases: None - Past Medical History & Family History Past Medical History?: Yes - Past Social History Smoking Status: Former Smoker - CARDIAC Hx Hypercholesterolemia: Yes Hx Hypertension: Yes Hx Pacemaker: Yes (2013) - PULMONARY Hx Pneumonia: Yes - NEUROLOGICAL Hx Neurological Disorder: No - HEENT Hx HEENT Problems: No - RENAL Hx Chronic Kidney Disease: Yes Hx Kidney Stones: Yes - ENDOCRINE/METABOLIC Hx Endocrine Disorders: No - HEMATOLOGICAL/ONCOLOGICAL Hx Blood Disorders: No - INTEGUMENTARY Hx Dermatological Problems: No - MUSCULOSKELETAL/RHEUMATOLOGICAL Hx Falls: No - GASTROINTESTINAL Hx Diverticulitis: Yes - GENITOURINARY/GYNECOLOGICAL Hx Genitourinary Disorders: Yes (SEE COMMENT) Hx Prostate Cancer: Yes (tx with radiation) - PSYCHIATRIC Hx Anxiety: Yes Hx Depression: Yes Hx Substance Use: No - SURGICAL HISTORY Hx Coronary Artery Bypass Graft: Yes - ANESTHESIA Hx Anesthesia: Yes Hx Anesthesia Reactions: No Hx Malignant Hyperthermia: No Meds Allergies/Adverse Reactions: Allergies Allergy/AdvReac Type Severity Reaction Status Date / Time No Known Allergies Allergy Verified 06/06/18 07:57 - Medications Medications: Current Medications Aspirin (Aspirin Chewable) 81 mg PO DAILY [facility] Clopidogrel Bisulfate (Plavix) 75 mg PO DAILY [facility] Enoxaparin Sodium (Lovenox) 40 mg SC DAILY [facility] Escitalopram Oxalate (Lexapro) 5 mg PO DAILY PRN PRN Reason: Anxiety Lisinopril (Zestril) 20 mg PO DAILY [facility] Metoprolol Succinate (Toprol Xl) 25 mg PO DAILY [facility] Rosuvastatin Calcium (Crestor) 20 mg PO HS [facility] Last Admin: 06/06/18 21:26 Dose: 20 mg Tamsulosin HCl (Flomax) 0.4 mg PO DAILY [facility] Results - Vital Signs Recent Vital Signs: Last Vital Signs Temp 98.1 F 06/07/18 00:00 Pulse 80 06/07/18 00:00 Resp 20 06/07/18 00:00 BP 168/86 H 06/07/18 00:00 Pulse Ox 71 L 06/07/18 00:00 - Labs Result Diagrams: 06/06/18 08:18 06/06/18 08:18 Labs: Laboratory Results - last 24 hr 06/06/18 06/06/18 06/06/18 08:03 08:18 08:18 WBC 12.7 H D RBC 5.35 Hgb 15.9 Hct 47.3 MCV 88.4 MCH 29.6 MCHC 33.5 RDW 14.4 Plt Count 204 MPV 8.4 Neut % (Auto) 79.3 H Lymph % (Auto) 7.7 L [place] % (Auto) 12.3 H Eos % (Auto) 0.4 Baso % (Auto) 0.3 Neut # (Auto) 10.0 H Lymph # (Auto) 1.0 [place] # (Auto) 1.6 H Eos # (Auto) 0.0 Baso # (Auto) 0.0 Neutrophils % (Manual) 84 H Band Neutrophils % 1 Lymphocytes % (Manual) 5 L Monocytes % (Manual) 10 Toxic Granulation Present Platelet Estimate Normal Large Platelets Present Polychromasia Slight Anisocytosis (manual) Slight PT 12.8 H INR 1.2 APTT 28 Sodium Potassium Chloride Carbon Dioxide Anion Gap BUN Creatinine Est GFR ( Amer) Est GFR (Non-Af Amer) POC Glucose (mg/dL) 125 H Random Glucose Hemoglobin A1c Calcium Total Bilirubin AST ALT Alkaline Phosphatase Total Creatine Kinase CK-MB (Mass) Troponin I Total Protein Albumin Globulin Albumin/Globulin Ratio Triglycerides Cholesterol LDL Cholesterol Direct HDL Cholesterol Urine Color Urine Clarity Urine pH Ur Specific [place] Urine Protein Urine Glucose (UA) Urine Ketones Urine Blood Urine Nitrate Urine Bilirubin Urine Urobilinogen Ur Leukocyte Esterase Urine WBC (Auto) Urine RBC (Auto) Alcohol, Quantitative Blood Type Antibody Screen 06/06/18 06/06/18 06/06/18 08:18 08:18 08:18 WBC RBC Hgb Hct MCV MCH MCHC RDW Plt Count MPV Neut % (Auto) Lymph % (Auto) [place] % (Auto) Eos % (Auto) Baso % (Auto) Neut # (Auto) Lymph # (Auto) [place] # (Auto) Eos # (Auto) Baso # (Auto) Neutrophils % (Manual) Band Neutrophils % Lymphocytes % (Manual) Monocytes % (Manual) Toxic Granulation Platelet Estimate Large Platelets Polychromasia Anisocytosis (manual) PT INR APTT Sodium 144 Potassium 3.9 Chloride 108 H Carbon Dioxide 22 Anion Gap 17 BUN 20 Creatinine 0.9 Est GFR ( Amer) > 60 Est GFR (Non-Af Amer) > 60 POC Glucose (mg/dL) Random Glucose 120 H Hemoglobin A1c 6.2 Calcium 9.5 Total Bilirubin 0.9 AST 26 ALT 28 Alkaline Phosphatase 85 Total Creatine Kinase CK-MB (Mass) Troponin I 0.1220 H* Total Protein 7.4 Albumin 4.2 Globulin 3.2 Albumin/Globulin Ratio 1.3 Triglycerides 126 Cholesterol 198 LDL Cholesterol Direct 125 HDL Cholesterol 45 Urine Color Urine Clarity Urine pH Ur Specific [place] Urine Protein Urine Glucose (UA) Urine Ketones Urine Blood Urine Nitrate Urine Bilirubin Urine Urobilinogen Ur Leukocyte Esterase Urine WBC (Auto) Urine RBC (Auto) Alcohol, Quantitative < 10 Blood Type O NEGATIVE Antibody Screen Negative 06/06/18 06/06/18 06/06/18 10:25 13:45 22:40 WBC RBC Hgb Hct MCV MCH MCHC RDW Plt Count MPV Neut % (Auto) Lymph % (Auto) [place] % (Auto) Eos % (Auto) Baso % (Auto) Neut # (Auto) Lymph # (Auto) [place] # (Auto) Eos # (Auto) Baso # (Auto) Neutrophils % (Manual) Band Neutrophils % Lymphocytes % (Manual) Monocytes % (Manual) Toxic Granulation Platelet Estimate Large Platelets Polychromasia Anisocytosis (manual) PT INR APTT Sodium Potassium Chloride Carbon Dioxide Anion Gap BUN Creatinine Est GFR ( Amer) Est GFR (Non-Af Amer) POC Glucose (mg/dL) Random Glucose Hemoglobin A1c Calcium Total Bilirubin AST ALT Alkaline Phosphatase Total Creatine Kinase 317 H 237 H CK-MB (Mass) 5.00 H 2.75 Troponin I 0.1230 H* 0.0670 Total Protein Albumin Globulin Albumin/Globulin Ratio Triglycerides Cholesterol LDL Cholesterol Direct HDL Cholesterol Urine Color Yellow Urine Clarity Clear Urine pH 5.0 Ur Specific [place] 1.056 H Urine Protein Negative Urine Glucose (UA) Normal Urine Ketones Negative Urine Blood Negative Urine Nitrate Negative Urine Bilirubin Negative Urine Urobilinogen Normal Ur Leukocyte Esterase Neg Urine WBC (Auto) < 1 Urine RBC (Auto) 1 Alcohol, Quantitative Blood Type Antibody Screen
[2018-06-07 08:30] LABS: FREE T4 1.42 ng/dL (0.78-2.19)
[2018-06-07] MEDS: Metoprolol Succinate 25 mg XL Tab PO SCH (10:34)
--- NOTE | 2018-06-07 13:14 | CT ---
Date of service: 06/07/2018 PROCEDURE: CT HEAD WITHOUT CONTRAST. HISTORY: follow up for stroke COMPARISON: None available. TECHNIQUE: Axial computed tomography images were obtained through the head/brain without intravenous contrast. Radiation dose: Total exam DLP = 1236.89 mGy-cm. This CT exam was performed using one or more of the following dose reduction techniques: Automated exposure control, adjustment of the mA and/or kV according to patient size, and/or use of iterative reconstruction technique. FINDINGS: HEMORRHAGE: No intracranial hemorrhage. BRAIN: There are moderate chronic microangiopathic changes. There is an age indeterminate infarction in the left vargas radiata. There is an old lacunar infarction in the left basal ganglia. There is no mass, mass effect or abnormal extra-axial fluid collection. There is no territorial infarction. The midline sagittal structures are normal. VENTRICLES: There is mild age-related global parenchymal volume loss and proportionate enlargement of the ventricles and cortical sulci. CALVARIUM: Unremarkable. PARANASAL SINUSES: Severe polypoid mucosal thickening in the left maxillary sinus. There is mild mucosal thickening in the left anterior ethmoid air cells. The remaining included paranasal sinuses are clear. MASTOID AIR CELLS: Predominantly clear. OTHER FINDINGS: None. IMPRESSION: Age indeterminate likely subacute infarction in the left basal ganglia. MRI of the brain without contrast is recommended for definitive evaluation. Old lacunar infarction in the left basal ganglia. Moderate chronic microangiopathic changes. Mild age-related global parenchymal volume loss with
[2018-06-07] MEDS: Enoxaparin 40 mg Syringe SC SCH (17:12)
[2018-06-07] MEDS ORDERED: Enoxaparin 100 mg Syringe SC SCH (18:00)
--- NOTE | 2018-06-07 19:17 | CP.PCM.PN ---
Subjective - Date & Time of Evaluation Date of Evaluation: 06/07/18 Time of Evaluation: 19:17 - Subjective Subjective: Patient feeling slightly better. Complaining of bilateral weakness. But more weakness on the right side. Able to sit up. Feeling somewhat tired. Family at bedside. Discussed with the family. Seen by neurologist. Repeat CAT scan reviewed We will continue the current treatment. Patient with right-sided CVA weakness. Physical therapy fall precautions will follow the patient Objective - Vital Signs/Intake and Output Vital Signs (last 24 hours): Temp Pulse Resp BP Pulse Ox 98.2 F 62 20 124/71 95 06/07/18 16:02 06/07/18 16:02 06/07/18 16:02 06/07/18 16:02 06/07/18 16:02 - Medications Medications: Current Medications Aspirin (Aspirin Chewable) 81 mg PO DAILY [facility] Last Admin: 06/07/18 10:34 Dose: 81 mg Clopidogrel Bisulfate (Plavix) 75 mg PO DAILY [facility] Last Admin: 06/07/18 10:34 Dose: 75 mg Enoxaparin Sodium (Lovenox) 40 mg SC DAILY [facility] Last Admin: 06/07/18 17:12 Dose: 40 mg Escitalopram Oxalate (Lexapro) 5 mg PO DAILY PRN PRN Reason: Anxiety Lisinopril (Zestril) 20 mg PO DAILY [facility] Last Admin: 06/07/18 10:34 Dose: 20 mg Metoprolol Succinate (Toprol Xl) 25 mg PO DAILY [facility] Last Admin: 06/07/18 10:34 Dose: 25 mg Rosuvastatin Calcium (Crestor) 20 mg PO HS [facility] Last Admin: 06/06/18 21:26 Dose: 20 mg Tamsulosin HCl (Flomax) 0.4 mg PO DAILY [facility] Last Admin: 06/07/18 10:34 Dose: 0.4 mg - Labs Labs: 06/06/18 08:18 06/06/18 08:18 PT 12.8 SECONDS (9.7-12.2) H 06/06/18 08:18 INR 1.2 06/06/18 08:18 APTT 28 SECONDS (21-34) 06/06/18 08:18
--- NOTE | 2018-06-07 23:08 | CARD ---
APPROVED REPORT Date of service: 06/07/2018 EXAM: Two-dimensional and M-mode echocardiogram with Doppler and color Doppler. Other Information Quality : TDSRhythm : INDICATION CVA/TIA Syncope Congestive Heart Failure 2D DIMENSIONS IVSd1.2 (0.7-1.1cm)LVDd5.3 (3.9-5.9cm) PWd1.1 (0.7-1.1cm)LA Ndgxpy44 (18-58mL) LVDs4.1 (2.5-4.0cm)FS (%) 22.5 % LVEF (%)44.9 (>50%)LVEF (Blum's)50 % M-Mode DIMENSIONS Left Atrium (MM)4.40 (2.5-4.0cm)IVSd1.44 (0.7-1.1cm) Aortic Root3.77 (2.2-3.7cm)LVDd4.30 (4.0-5.6cm) Aortic Cusp Exc.2.23 (1.5-2.0cm)PWd0.94 (0.7-1.1cm) FS (%) 31 %LVDs2.99 (2.0-3.8cm) LVEF (%)50 (>50%) Mitral Valve MV E Rgxhyney28.1cm/sMV A Egypcblp61.8cm/sE/A ratio0.8 TDI Lateral E' Peak V8.29cm/sMedial E' Peak V8.09cm/sE/Lateral E'8.1 E/Medial E'8.3 Tricuspid Valve TR Peak Tnmpgcvz948me/sTR Peak Gr.[id number] LEFT VENTRICLE The left ventricle is normal size. There is borderline asymmetric left ventricular hypertrophy. Left ventricle systolic function is low normal. The Ejection Fraction is 50-55%. There is mild hypokinesis in the mid-inferior wall. The left ventricular diastolic function is abnormal. Grade I abnormal relaxation pattern. No left ventricle thrombus noted on this study. RIGHT VENTRICLE The right ventricle is normal size. The right ventricular systolic function is normal. There is a pacemaker lead in the right ventricle. ATRIA The left atrium is mildly dilated. The right atrium size is normal. AORTIC VALVE The aortic valve is mildly sclerotic. The aortic valve is trileaflet. No aortic regurgitation is present. There is no aortic valvular stenosis. There is no aortic valvular vegetation. MITRAL VALVE Mitral annular calcification is mild. There is no evidence of mitral valve prolapse. There is no mitral valve stenosis. Mitral regurgitation is trace to mild. TRICUSPID VALVE The tricuspid valve is normal in structure. There is mild tricuspid regurgitation. Right ventricular systolic pressure is estimated at 30-35 mmHg. There is no pulmonary hypertension. There is no tricuspid valve prolapse or vegetation. There is no tricuspid valve stenosis. PULMONIC VALVE The pulmonic valve is not well visualized. There is no pulmonic valvular regurgitation. GREAT VESSELS The aortic root is normal in size. The IVC is normal in size and collapses >50% with inspiration. PERICARDIAL EFFUSION There is no pericardial effusion. There is no pleural effusion. <Conclusion> There is borderline asymmetric left ventricular hypertrophy. Left ventricle systolic function is low normal. The Ejection Fraction is 50-55%. The left ventricular diastolic function is abnormal. Grade I abnormal relaxation pattern. The right ventricle is normal size. The right ventricular systolic function is normal. The left atrium is mildly dilated. The right atrium size is normal. Mitral regurgitation is trace to mild. There is mild tricuspid regurgitation.
--- NOTE | 2018-06-08 06:59 | CON ---
DATE: 06/07/2018 ATTENDING PHYSICIAN: Gris Levy MD LOCATION: The patient's room number 550, bed A. REASON FOR CONSULTATION: Right-sided weakness. CHIEF COMPLAINT: The patient was brought into [facility] yesterday around 05:00 with a history of right-sided weakness, which happened yesterday. From neurological point view, I was called in to evaluate him for further management. HISTORY OF PRESENT ILLNESS: Mr. Eligio Patel is an 83-year-old, well built, right-handed male who was in his usual state of health, around 10 p.m. on Thursday while he was eating and drinking a glass of wine, he started to notice right-sided weakness in his leg more than his arm. This is not associating with his speech or vision. Never had any similar episodes happen, never had any involuntary movement on the affected side. With these symptoms, he went to bed. He woke up and he came to the hospital with persistent symptoms on afternoon yesterday. The patient is out of the window for t-PA and the patient did have workup for code stroke in the beginning. The patient is still complaining of the right-sided weakness on his left side, lying down is hurting him. No headache. No visual or bulbar dysfunction at present. PAST MEDICAL HISTORY: Coronary artery disease, hypertension, history of ventricular tachycardia status post shock in the past, status post CABG, defibrillator and pacemaker placement. SOCIAL HISTORY: Denies smoking or alcohol use. ALLERGIES: NO KNOWN ALLERGIES. REVIEW OF SYSTEMS: A 12-point system is being reviewed from neuro, new right-sided weakness. MEDICATIONS: Aspirin, Crestor, Flomax, Lexapro, Lovenox, Toprol, lisinopril. PHYSICAL EXAMINATION: VITAL SIGNS: Blood pressure 168/86, mean artery pressure of 113, respiratory rate 18, and temperature 80 and regular, temperature 98.1 degrees Fahrenheit. NECK: Supple. No carotid bruits. HEART: Sounds regular. CHEST: Fair air entry. EXTREMITIES: No edema in legs. NEUROLOGIC: Mental status examination, he is awake, alert and oriented to person, place and time. Speech is clear. Naming, repetition, fluency, comprehension all within normal. The patient seems to be anxious at the beginning. Cranial nerve examination, visual field intact. Pupils reactive to light. Right palpebral fissure is somewhat smaller than on his left side. Pupils reactive to light. No facial sensory deficit. Significant facial asymmetry manifesting as flattening of the right nasolabial fold. Good gag. Tongue is midline. Motor examination, outstretched hand with eyes closed, no drift noted. Power is absent. Significant drift noted on the right side and to compare with the left side. He is able to lift both lower extremities against the gravity. Deep tendon reflexes grossly absent. Plantars are upgoing on both sides. Sensory examination, no cortical sensory loss. Responds to pain symmetrically on both sides. Mild distal sensory motor neuropathy. Coordination, mild [id number] dysmetria noted on the left side. Gait deferred at this time. DIAGNOSTIC DATA: CT of the head being reviewed showed left basal ganglia infarct. CT angiogram is negative. EKG, normal sinus rhythm. LABORATORY DATA: Blood workup; WBC 12.7, hemoglobin 15.9, hematocrit 47.3, platelet 204. PT 12.8, INR 1.2, PTT 28. Sodium 144, potassium 3.9, chloride 108, glucose 125, hemoglobin A1c 6.2. Creatine kinase is 237, troponin 0.0670. Urinalysis is normal. Toxicology for alcohol at the time of admission was negative. CONCLUSION: As per neurological examination, Mr. Eligio Patel has been presenting with left subcortical dysfunction manifesting with right hemiparesis. This is probably secondary to cardiac versus carotid embologenesis or thrombogenesis. Considering his other risk factors, it could be a small vessel disease as well. RECOMMENDATIONS: 1. Patient failed with aspirin, I would like to add Plavix. 2. CT of the head to be repeated to make sure any other further progression of his stroke. 3. Keep mean artery pressure around 100. Continue BRAXTON inhibitor and statin with antiplatelets. 4. Out of bed. Physical therapy and occupational therapy should be entertained and instituted as early as possible. 5. The patient should be evaluated by manager managed backup services. In the meantime, the patient should have carotid Doppler, echocardiogram and electroencephalogram to rule out any cardiac pathology and any paroxysmal activities in order to change his treatment. 6. The patient will be followed closely while he is in the hospital. Farshad Tillman MD [facility] # [id number]
[2018-06-08 07:46] LABS: BASO # 0.1 K/uL (0.0-0.2); BASO % 0.7 % (0.0-2.0); EOS # 0.3 K/uL (0.0-0.7); EOS % 3.4 % (0.0-4.0); HEMOGLOBIN 14.6 g/dL (12.0-18.0); LYMPH # 1.9 K/uL (1.0-4.3); LYMPH % 24.1 % (20.0-40.0); MEAN CELL VOLUME 88.2 fL (80.0-94.0); MEAN CORPUSCULAR HEMOGLOBIN 29.9 pg (27.0-31.0); MEAN CORPUSCULAR HGB CONC 33.8 g/dL (33.0-37.0); MEAN PLATELET VOLUME 8.6 fL (7.2-11.7); MONO # 1.1 K/uL (0.0-0.8); MONO % 14.4 % (0.0-10.0); NEUT # 4.5 K/uL (1.8-7.0); NEUT % 57.4 % (50.0-75.0); RBC 4.9 Mil/uL (4.40-5.90); WHITE BLOOD COUNT 7.9 K/uL (4.8-10.8)
[2018-06-08 08:18] LABS: ALB/GLOB RATIO 1.2 (1.0-2.1); ALBUMIN 3.3 g/dL (3.5-5.0); ALT/SGPT 29 U/L (21-72); AST/SGOT 20 U/L (17-59); BLOOD UREA NITROGEN 19 mg/dL (9-20); GFR NON-AFRICAN AMERICAN > 60
[2018-06-08] MEDS: Metoprolol Succinate 25 mg XL Tab PO SCH (09:19)
[2018-06-08] MEDS: Enoxaparin 40 mg Syringe SC SCH (09:20)
--- NOTE | 2018-06-08 12:28 | PN ---
DATE: 06/08/2018 NEUROLOGICAL PROBLEM: Right-sided weakness. PHYSICAL EXAMINATION: VITAL SIGNS: Blood pressure 112/72, mean arterial pressure of 85, respiratory rate 18, pulse rate 60 and regular, temperature 98.4. The patient slept good. No new weakness. The examination is consistent with mild right hemiparesis with pronator drift, arm and leg. Plantars are upgoing on both sides. The patient repeated CT of the head, showed left basal ganglion infarct with atrophy. Small vessel disease is noted on periventricular region. WORKUP: Hemoglobin A1c 6.2, triglycerides 113, cholesterol 172, LDL 123, HDL 39, homocysteine 14. TSH is 0.40. Echocardiogram showed ejection fraction of 50% to 55%. Left atrium is slightly enlarged. Mitral regurg and tricuspid regurg also noted. ASSESSMENT AND PLAN: From neurological point of view, the patient is stable. He needs physical therapy and occupational therapy. Continue the present management with dual antiplatelets with angiotensin receptor blockers and statin. At this point, I am signing him off from neurological followup. If any changes in neurological status, please do not hesitate to call me back. Farshad Tillman MD
--- NOTE | 2018-06-08 12:50 | CP.PCM.PN ---
<Efrain Patel - Last Filed: 06/08/18 18:01> Subjective - Date & Time of Evaluation Date of Evaluation: 06/08/18 Time of Evaluation: 13:00 - Subjective Subjective: Cardiology Progress Note Patient seen and examined at bedside. No acute events reported overnight. Patient complains of right sided weakness but seems to be improving. He denies having dizziness, headache, shortness of breath, chest pain, nausea or vomiting. Objective - Vital Signs/Intake and Output Vital Signs (last 24 hours): Temp Pulse Resp BP Pulse Ox 97.7 F 52 L 20 148/72 95 06/08/18 07:22 06/08/18 09:16 06/08/18 07:22 06/08/18 09:16 06/08/18 07:22 Intake and Output: 06/08/18 06/08/18 06:59 18:59 Intake Total 300 Balance 300 - Medications Medications: Current Medications Aspirin (Aspirin Chewable) 81 mg PO DAILY [facility] Last Admin: 06/08/18 09:19 Dose: 81 mg Clopidogrel Bisulfate (Plavix) 75 mg PO DAILY [facility] Last Admin: 06/08/18 09:19 Dose: 75 mg Enoxaparin Sodium (Lovenox) 40 mg SC DAILY [facility] Last Admin: 06/08/18 09:20 Dose: 40 mg Escitalopram Oxalate (Lexapro) 5 mg PO DAILY PRN PRN Reason: Anxiety Lisinopril (Zestril) 20 mg PO DAILY [facility] Last Admin: 06/08/18 09:19 Dose: 20 mg Metoprolol Succinate (Toprol Xl) 25 mg PO DAILY [facility] Last Admin: 06/08/18 09:19 Dose: Not Given Rosuvastatin Calcium (Crestor) 20 mg PO HS [facility] Last Admin: 06/07/18 21:19 Dose: 20 mg Tamsulosin HCl (Flomax) 0.4 mg PO DAILY [facility] Last Admin: 06/08/18 09:18 Dose: 0.4 mg - Labs Labs: 06/08/18 07:35 06/08/18 07:35 PT 12.8 SECONDS (9.7-12.2) H 06/06/18 08:18 INR 1.2 06/06/18 08:18 APTT 28 SECONDS (21-34) 06/06/18 08:18 - Additional Findings Additional findings: - Constitutional Appears: Non-toxic - Head Exam Head Exam: NORMAL INSPECTION - Eye Exam Eye Exam: absent: Scleral icterus - Neck Exam Neck exam: Positive for: Full Rom - Respiratory Exam Respiratory Exam: NORMAL BREATHING PATTERN - Cardiovascular Exam Cardiovascular Exam: REGULAR RHYTHM - GI/Abdominal Exam GI & Abdominal Exam: Soft - Extremities Exam Extremities exam: Negative for: calf tenderness, pedal edema - Neurological Exam Neurological exam: Alert, Oriented x3 Additional comments: right hemiparesis Assessment and Plan - Assessment and Plan (Free Text) Assessment: CVA -Hemodynamically stable -Continue current medical management -Echo shows borderline LVH, EF 50-55% -Plan for subacute rehab Case discussed with attending Dr. Peralta <Jon Peralta - Last Filed: 06/08/18 23:50> Objective - Vital Signs/Intake and Output Vital Signs (last 24 hours): Temp Pulse Resp BP Pulse Ox 98.2 F 69 20 136/76 95 06/08/18 15:00 06/08/18 18:00 06/08/18 15:00 06/08/18 15:00 06/08/18 15:00 - Medications Medications: Current Medications Aspirin (Aspirin Chewable) 81 mg PO DAILY [facility] Last Admin: 06/08/18 09:19 Dose: 81 mg Bisacodyl (Dulcolax) 5 mg PO BID [facility] Last Admin: 06/08/18 21:19 Dose: 5 mg Clopidogrel Bisulfate (Plavix) 75 mg PO DAILY [facility] Last Admin: 06/08/18 09:19 Dose: 75 mg Enoxaparin Sodium (Lovenox) 40 mg SC DAILY [facility] Last Admin: 06/08/18 09:20 Dose: 40 mg Escitalopram Oxalate (Lexapro) 5 mg PO DAILY [facility] Lisinopril (Zestril) 20 mg PO DAILY [facility] Last Admin: 06/08/18 09:19 Dose: 20 mg Metoprolol Succinate (Toprol Xl) 25 mg PO DAILY [facility] Last Admin: 06/08/18 09:19 Dose: Not Given Rosuvastatin Calcium (Crestor) 20 mg PO HS [facility] Last Admin: 06/08/18 21:19 Dose: 20 mg Tamsulosin HCl (Flomax) 0.4 mg PO DAILY [facility] Last Admin: 06/08/18 09:18 Dose: 0.4 mg - Labs Labs: 06/08/18 07:35 06/08/18 07:35 PT 12.8 SECONDS (9.7-12.2) H 06/06/18 08:18 INR 1.2 06/06/18 08:18 APTT 28 SECONDS (21-34) 06/06/18 08:18 Assessment and Plan - Assessment and Plan (Free Text) Plan: Patient seen and evaluated personally by me Plan of care d/w the resident and as documented
--- NOTE | 2018-06-08 20:11 | CP.PCM.PN ---
Subjective - Date & Time of Evaluation Date of Evaluation: 06/08/18 Time of Evaluation: 20:27 - Subjective Subjective: pt is feeling well able to stand no chest pain eating ook no bm pt with [facility] for rehab Objective - Vital Signs/Intake and Output Vital Signs (last 24 hours): Temp Pulse Resp BP Pulse Ox 98.2 F 69 20 136/76 95 06/08/18 15:00 06/08/18 18:00 06/08/18 15:00 06/08/18 15:00 06/08/18 15:00 - Medications Medications: Current Medications Aspirin (Aspirin Chewable) 81 mg PO DAILY [facility] Last Admin: 06/08/18 09:19 Dose: 81 mg Clopidogrel Bisulfate (Plavix) 75 mg PO DAILY [facility] Last Admin: 06/08/18 09:19 Dose: 75 mg Enoxaparin Sodium (Lovenox) 40 mg SC DAILY [facility] Last Admin: 06/08/18 09:20 Dose: 40 mg Escitalopram Oxalate (Lexapro) 5 mg PO DAILY [facility] Lisinopril (Zestril) 20 mg PO DAILY [facility] Last Admin: 06/08/18 09:19 Dose: 20 mg Metoprolol Succinate (Toprol Xl) 25 mg PO DAILY [facility] Last Admin: 06/08/18 09:19 Dose: Not Given Rosuvastatin Calcium (Crestor) 20 mg PO HS [facility] Last Admin: 06/07/18 21:19 Dose: 20 mg Tamsulosin HCl (Flomax) 0.4 mg PO DAILY [facility] Last Admin: 06/08/18 09:18 Dose: 0.4 mg - Labs Labs: 06/08/18 07:35 06/08/18 07:35 PT 12.8 SECONDS (9.7-12.2) H 06/06/18 08:18 INR 1.2 06/06/18 08:18 APTT 28 SECONDS (21-34) 06/06/18 08:18
[2018-06-08] MEDS: Bisacodyl 5mg EC Tab PO SCH (21:19)
[2018-06-09] MEDS: Metoprolol Succinate 25 mg XL Tab PO SCH (09:32)
[2018-06-09] MEDS: Enoxaparin 40 mg Syringe SC SCH (09:32)
[2018-06-09] MEDS: Bisacodyl 5mg EC Tab PO SCH ×2 (09:46→17:40)
--- NOTE | 2018-06-09 11:59 | CARD ---
APPROVED REPORT Date of service: 06/06/2018 EKG Measurement Heart [id number] OR 160P-5 [id number] <Conclusion> Normal sinus rhythm Right bundle branch block Abnormal ECG
--- NOTE | 2018-06-09 19:53 | CP.PCM.PN ---
Subjective - Date & Time of Evaluation Date of Evaluation: 06/09/18 Time of Evaluation: 19:48 - Subjective Subjective: feels little depressed today feels ok able to stand and sit this am now in the bed 06/08/18 07:35 06/08/18 07:35 Temp Pulse Resp BP Pulse Ox 98 F 66 20 125/75 95 06/09/18 15:54 06/09/18 15:54 06/09/18 15:54 06/09/18 15:54 06/09/18 15:54 chest good air entry regular hs abd soft rhythm analysis is sinus rhythm continue current treatment will f/u for rehab placement Objective - Vital Signs/Intake and Output Vital Signs (last 24 hours): Temp Pulse Resp BP Pulse Ox 98 F 66 20 125/75 95 06/09/18 15:54 06/09/18 15:54 06/09/18 15:54 06/09/18 15:54 06/09/18 15:54 - Medications Medications: Current Medications Aspirin (Aspirin Chewable) 81 mg PO DAILY [facility] Last Admin: 06/09/18 09:32 Dose: 81 mg Bisacodyl (Dulcolax) 5 mg PO BID [facility] Last Admin: 06/09/18 17:40 Dose: Not Given Clopidogrel Bisulfate (Plavix) 75 mg PO DAILY [facility] Last Admin: 06/09/18 09:32 Dose: 75 mg Enoxaparin Sodium (Lovenox) 40 mg SC DAILY [facility] Last Admin: 06/09/18 09:32 Dose: 40 mg Escitalopram Oxalate (Lexapro) 5 mg PO DAILY [facility] Last Admin: 06/09/18 09:31 Dose: 5 mg Lisinopril (Zestril) 20 mg PO DAILY [facility] Last Admin: 06/09/18 09:46 Dose: 20 mg Metoprolol Succinate (Toprol Xl) 25 mg PO DAILY [facility] Last Admin: 06/09/18 09:32 Dose: 25 mg Rosuvastatin Calcium (Crestor) 20 mg PO HS [facility] Last Admin: 06/08/18 21:19 Dose: 20 mg Tamsulosin HCl (Flomax) 0.4 mg PO DAILY [facility] Last Admin: 06/09/18 09:31 Dose: 0.4 mg - Labs Labs: 06/08/18 07:35 06/08/18 07:35 PT 12.8 SECONDS (9.7-12.2) H 06/06/18 08:18 INR 1.2 06/06/18 08:18 APTT 28 SECONDS (21-34) 06/06/18 08:18
--- NOTE | 2018-06-09 22:35 | CP.PCM.PN ---
Subjective - Date & Time of Evaluation Date of Evaluation: 06/09/18 Time of Evaluation: 17:25 - Subjective Subjective: Patient seen and examined at bedside.Denies chest pain and dyspnea Physical Examination - Additional Findings Additional findings: - Constitutional Appears: Non-toxic - Head Exam Head Exam: NORMAL INSPECTION - Eye Exam Eye Exam: absent: Scleral icterus - Neck Exam Neck exam: Positive for: Full Rom - Respiratory Exam Respiratory Exam: NORMAL BREATHING PATTERN - Cardiovascular Exam Cardiovascular Exam: REGULAR RHYTHM - GI/Abdominal Exam GI & Abdominal Exam: Soft - Extremities Exam Extremities exam: Negative for: calf tenderness, pedal edema - Neurological Exam Neurological exam: Alert, Oriented x3 Additional comments: right hemiparesis Assessment and Plan - Assessment and Plan (Free Text) Assessment: CVA -Hemodynamically stable -Continue current medical management -Echo shows borderline LVH, EF 50-55% -Plan for subacute rehab Objective - Vital Signs/Intake and Output Vital Signs (last 24 hours): Temp Pulse Resp BP Pulse Ox 98 F 66 20 125/75 95 06/09/18 15:54 06/09/18 18:00 06/09/18 15:54 06/09/18 15:54 06/09/18 15:54 Intake and Output: 06/09/18 06/10/18 18:59 06:59 Intake Total 500 Balance 500 - Medications Medications: Current Medications Aspirin (Aspirin Chewable) 81 mg PO DAILY [facility] Last Admin: 06/09/18 09:32 Dose: 81 mg Bisacodyl (Dulcolax) 5 mg PO BID [facility] Last Admin: 06/09/18 17:40 Dose: Not Given Clopidogrel Bisulfate (Plavix) 75 mg PO DAILY [facility] Last Admin: 06/09/18 09:32 Dose: 75 mg Enoxaparin Sodium (Lovenox) 40 mg SC DAILY [facility] Last Admin: 06/09/18 09:32 Dose: 40 mg Escitalopram Oxalate (Lexapro) 5 mg PO DAILY [facility] Last Admin: 06/09/18 09:31 Dose: 5 mg Lisinopril (Zestril) 20 mg PO DAILY [facility] Last Admin: 06/09/18 09:46 Dose: 20 mg Metoprolol Succinate (Toprol Xl) 25 mg PO DAILY [facility] Last Admin: 06/09/18 09:32 Dose: 25 mg Rosuvastatin Calcium (Crestor) 20 mg PO HS [facility] Last Admin: 06/09/18 21:54 Dose: 20 mg Tamsulosin HCl (Flomax) 0.4 mg PO DAILY [facility] Last Admin: 06/09/18 09:31 Dose: 0.4 mg - Labs Labs: 06/08/18 07:35 06/08/18 07:35 PT 12.8 SECONDS (9.7-12.2) H 06/06/18 08:18 INR 1.2 06/06/18 08:18 APTT 28 SECONDS (21-34) 06/06/18 08:18
[2018-06-10] MEDS: Enoxaparin 40 mg Syringe SC SCH (09:49)
[2018-06-10] MEDS: Metoprolol Succinate 25 mg XL Tab PO SCH (09:49)
[2018-06-10] MEDS: Bisacodyl 5mg EC Tab PO SCH (09:49)
--- NOTE | 2018-06-10 16:09 | CP.PCM.PN ---
Subjective - Date & Time of Evaluation Date of Evaluation: 06/10/18 Time of Evaluation: 16:09 - Subjective Subjective: PATIENT SEEN AND EXAMINED AT THE BEDSIDE Objective - Vital Signs/Intake and Output Vital Signs (last 24 hours): Temp Pulse Resp BP Pulse Ox 97.4 F L 70 20 102/63 95 06/10/18 15:00 06/10/18 15:00 06/10/18 15:00 06/10/18 15:00 06/10/18 15:00 Intake and Output: 06/10/18 06/10/18 06:59 18:59 Intake Total 500 Balance 500 - Medications Medications: Current Medications Aspirin (Aspirin Chewable) 81 mg PO DAILY [facility] Last Admin: 06/10/18 09:49 Dose: 81 mg Bisacodyl (Dulcolax) 5 mg PO BID [facility] Last Admin: 06/10/18 09:49 Dose: 5 mg Clopidogrel Bisulfate (Plavix) 75 mg PO DAILY [facility] Last Admin: 06/10/18 09:49 Dose: 75 mg Enoxaparin Sodium (Lovenox) 40 mg SC DAILY [facility] Last Admin: 06/10/18 09:49 Dose: 40 mg Escitalopram Oxalate (Lexapro) 5 mg PO DAILY [facility] Last Admin: 06/10/18 09:49 Dose: 5 mg Lisinopril (Zestril) 20 mg PO DAILY [facility] Last Admin: 06/10/18 09:49 Dose: 20 mg Metoprolol Succinate (Toprol Xl) 25 mg PO DAILY [facility] Last Admin: 06/10/18 09:49 Dose: 25 mg Rosuvastatin Calcium (Crestor) 20 mg PO HS [facility] Last Admin: 06/09/18 21:54 Dose: 20 mg Tamsulosin HCl (Flomax) 0.4 mg PO DAILY [facility] Last Admin: 06/10/18 09:49 Dose: 0.4 mg - Labs Labs: 06/08/18 07:35 06/08/18 07:35 PT 12.8 SECONDS (9.7-12.2) H 06/06/18 08:18 INR 1.2 06/06/18 08:18 APTT 28 SECONDS (21-34) 06/06/18 08:18 Assessment and Plan - Assessment and Plan (Free Text) Assessment: PLACE UNDER THE SERVICE OF DR CESAR AT [facility] ---CALL FOR ADMITTING CONTINUE HOME MEDICATION NEW PRESCRIPTION GIVEN PLAVIX 75 MG PO DAILY [facility] CALL DR CESAR FOR FURTHER ORDER
--- NOTE | 2018-06-10 17:54 | CP.PCM.DIS ---
Provider - Provider Date of Admission: 06/06/18 09:18 Attending physician: Gris Levy MD Time Spent in preparation of Discharge (in minutes): 45 Hospital Course - Lab Results Lab Results: Most Recent Lab Values WBC 7.9 K/uL (4.8-10.8) 06/08/18 07:35 RBC 4.90 Mil/uL (4.40-5.90) 06/08/18 07:35 Hgb 14.6 g/dL (12.0-18.0) 06/08/18 07:35 Hct 43.2 % (35.0-51.0) 06/08/18 07:35 MCV 88.2 fL (80.0-94.0) 06/08/18 07:35 MCH 29.9 pg (27.0-31.0) 06/08/18 07:35 MCHC 33.8 g/dL (33.0-37.0) 06/08/18 07:35 RDW 14.0 % (11.5-14.5) 06/08/18 07:35 Plt Count 173 K/uL (130-400) 06/08/18 07:35 MPV 8.6 fL (7.2-11.7) 06/08/18 07:35 Neut % (Auto) 57.4 % (50.0-75.0) 06/08/18 07:35 Lymph % (Auto) 24.1 % (20.0-40.0) 06/08/18 07:35 [place] % (Auto) 14.4 % (0.0-10.0) H 06/08/18 07:35 Eos % (Auto) 3.4 % (0.0-4.0) 06/08/18 07:35 Baso % (Auto) 0.7 % (0.0-2.0) 06/08/18 07:35 Neut # (Auto) 4.5 K/uL (1.8-7.0) 06/08/18 07:35 Lymph # (Auto) 1.9 K/uL (1.0-4.3) 06/08/18 07:35 [place] # (Auto) 1.1 K/uL (0.0-0.8) H 06/08/18 07:35 Eos # (Auto) 0.3 K/uL (0.0-0.7) 06/08/18 07:35 Baso # (Auto) 0.1 K/uL (0.0-0.2) 06/08/18 07:35 Neutrophils % (Manual) 84 % (50-75) H 06/06/18 08:18 Band Neutrophils % 1 % (0-2) 06/06/18 08:18 Lymphocytes % (Manual) 5 % (20-40) L 06/06/18 08:18 Monocytes % (Manual) 10 % (0-10) 06/06/18 08:18 Toxic Granulation Present 06/06/18 08:18 Platelet Estimate Normal (NORMAL) 06/06/18 08:18 Large Platelets Present 06/06/18 08:18 Polychromasia Slight 06/06/18 08:18 Anisocytosis (manual) Slight 06/06/18 08:18 ESR 12 mm/hr (0-15) 06/07/18 07:21 PT 12.8 SECONDS (9.7-12.2) H 06/06/18 08:18 INR 1.2 06/06/18 08:18 APTT 28 SECONDS (21-34) 06/06/18 08:18 Sodium 142 mmol/L (132-148) 06/08/18 07:35 Potassium 4.0 mmol/L (3.6-5.2) 06/08/18 07:35 Chloride 107 mmol/L (98-107) 06/08/18 07:35 Carbon Dioxide 25 mmol/L (22-30) 06/08/18 07:35 Anion Gap 14 (10-20) 06/08/18 07:35 BUN 19 mg/dL (9-20) 06/08/18 07:35 Creatinine 0.8 mg/dL (0.8-1.5) 06/08/18 07:35 Est GFR ( Amer) > 60 06/08/18 07:35 Est GFR (Non-Af Amer) > 60 06/08/18 07:35 POC Glucose (mg/dL) 125 mg/dL (65-110) H 06/06/18 08:03 Random Glucose 109 mg/dL (75-110) 06/08/18 07:35 Hemoglobin A1c 6.2 % (4.2-6.5) 06/07/18 07:21 Calcium 9.0 mg/dl (8.6-10.4) 06/08/18 07:35 Total Bilirubin 1.1 mg/dL (0.2-1.3) 06/08/18 07:35 AST 20 U/L (17-59) 06/08/18 07:35 ALT 29 U/L (21-72) 06/08/18 07:35 Alkaline Phosphatase 63 U/L (38-126) 06/08/18 07:35 Total Creatine Kinase 237 U/L (55-170) H 06/06/18 22:40 CK-MB (Mass) 2.75 ng/mL (0.0-3.38) 06/06/18 22:40 Troponin I 0.0670 ng/mL (0.00-0.120) 06/06/18 22:40 Total Protein 6.2 g/dL (6.3-8.3) L 06/08/18 07:35 Albumin 3.3 g/dL (3.5-5.0) L D 06/08/18 07:35 Globulin 2.9 gm/dL (2.2-3.9) 06/08/18 07:35 Albumin/Globulin Ratio 1.2 (1.0-2.1) 06/08/18 07:35 Triglycerides 113 mg/dL (0-149) 06/07/18 07:21 Cholesterol 172 mg/dL (0-199) 06/07/18 07:21 LDL Cholesterol Direct 123 mg/dL (0-129) 06/07/18 07:21 HDL Cholesterol 39 mg/dL (30-70) 06/07/18 07:21 Homocysteine 14.0 umol/L (6.6-14.8) 06/07/18 07:21 Free T4 1.42 ng/dL (0.78-2.19) 06/07/18 07:21 TSH 3rd Generation 0.40 mIU/L (0.46-4.68) L 06/07/18 07:21 Urine Color Yellow (YELLOW) 06/06/18 10:25 Urine Clarity Clear (Clear) 06/06/18 10:25 Urine pH 5.0 (5.0-8.0) 06/06/18 10:25 Ur Specific [place] 1.056 (1.003-1.030) H 06/06/18 10:25 Urine Protein Negative mg/dL (NEGATIVE) 06/06/18 10:25 Urine Glucose (UA) Normal mg/dL (Normal) 06/06/18 10:25 Urine Ketones Negative mg/dL (NEGATIVE) 06/06/18 10:25 Urine Blood Negative (NEGATIVE) 06/06/18 10:25 Urine Nitrate Negative (NEGATIVE) 06/06/18 10:25 Urine Bilirubin Negative (NEGATIVE) 06/06/18 10:25 Urine Urobilinogen Normal mg/dL (0.2-1.0) 06/06/18 10:25 Ur Leukocyte Esterase Neg [place]/uL (Negative) 06/06/18 10:25 Urine WBC (Auto) < 1 /hpf (0-5) 06/06/18 10:25 Urine RBC (Auto) 1 /hpf (0-3) 06/06/18 10:25 Alcohol, Quantitative < 10 mg/dl (0-10) 06/06/18 08:18 Blood Type O NEGATIVE 06/06/18 08:18 Antibody Screen Negative 06/06/18 08:18 - Hospital Course Hospital Course: Chief complaint: Right-sided weakness HPI: 83-year-old male with a history of multiple medical problems, hypertension, hypercholesterolemia, CAD, ventricular tachycardia, status post AICD. Last night where patient went to the bed, after eating his dinner, and having some wine alcohol. Suddenly he felt numbness in the right side of the body in the leg and approximately. And he was trying to get up and walk to the bedroom, he was having some difficulty time. And he was actually crowling to the bed, and also try to take rest. While he was getting up bed he felt a very heavy on the right side, unable to move, and he called 911 and came to the emergency room. Patient he came into the emergency room it was more than 6 hours of duration, and the patient was not area candidate for any acute intervention for possibly the of the stroke. Code stroke was called. CAT scan of the head was done. Patient now comparing of weakness in the right side. He is also feeling extremely tired and weak and depressed because of the weakness. Patient is able to communicate without any difficulty. He is able to swallow. Facial droop also noted. Patient recently had 2 episodes of electrical shocks from the AICD.Recently while he went to [place] patient developed leg swelling, urinary tract infection.Took antibiotic.Patient was seen by urologist, suggested for circumcision, but the patient is reluctant.No chest pain or shortness of breath no.Denies any other major active systemic symptoms.Clinical examination is unremarkable except elevated blood pressure.1+ pedal edema notedPatient had a August labs reviewedAssessment: 83-year-old male with history of CAD, hypertension, defibrillator. Urinary tract infection. Currently on:Atorvastatin 10 daily metoprolol succinate 25 daily lisinopril 20 daily aspirin 81 daily Lasix, Lexapro, Flomax Past medical history:CAD, hypertension, history of ventricular tachycardia, status post electrical shock.Patient had a history of fall. Surgical history:Patient had 6 bypass, history, ACD and pacemaker. Allergy no known drug allergy. Family history:Father with a heart disease.Mother of natural cause.Patient has 3 sisters healthy.He has 2 kids and grandkids. Social history:Patient used to smoke in the past, for 25 years, quit the but the age of 52.And drinks alcohol socially.No smoking history. Now.Currently living by himself. Review of systems:Denies any headache, no sinus symptoms, no shortness of breath, bilateral leg swelling, no GI symptoms.rt leg and rt arm weakness On examination:HEENT PERRLA, neck supple No thyromegaly was noted and no cervical adenopathy noted Chest bilateral good air entry, no wheezing or rales noted CVS regular heart sound, no murmur Abdomen soft and no organomegaly Bilateral pedal edema noted SURGERY SCHEDULING COORDINATOR alert awake oriented x3 rt arm and rt leg weakness and reflexes high. facial weakness on the left side noted Labs:Patient was hospitalized November 2016, with rhabdomyolysis. Patient had echocardiogram with normal ejection fraction. Patient also had a stress test which was negative. CT head and CT neck: left lacunar infarct left ICA 50% stenosis no acute changes noted labs noted sinus rhythm Assessment and recommendation:82-year-old male with history of CAD, hypertension, history of defibrillation. 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 Patient underwent extensive workup. See initial CAT scan negative for any acute pathology. CTA showing nonobstructive disease. There was no significant narrowing of the carotid arteries noted. Patient was initially managed conservatively. Patient did not receive thrombolytics because of the window of illness more than 6 hours. Patient started on aspirin Repeat CT scan showing subacute basal ganglia infarct-like lesion, subacute lesion likely causing the right-sided weakness. Patient is doing well. Participating in physical therapy. Able to eat by himself. Weakness on the right side persistently noted. Patient will need subacute rehabilitation. He will be discharged to rehab today. He will follow-up by the PMD at the rehabilitation. Medications reviewed He will be continued to receive antiplatelets, anticholesterol medication. Blood pressure medications. Educated about the condition. Once patient gets a discharge from there we will follow-up as an outpatient Discharge Exam - Head Exam Head Exam: NORMAL INSPECTION Discharge Plan - Discharge Medications Prescriptions: Clopidogrel [Plavix] 75 mg PO DAILY 30 Days tab - Follow Up Plan Condition: SERIOUS Disposition: HOME/ ROUTINE Instructions: Stroke (DC), Contusion (DC), Preventing Falls, Clopidogrel, Going Home on Blood Thinners Additional Instructions: PLACE UNDER THE SERVICE OF DR LEVY AT [facility] ---CALL FOR ADMITTING CONTINUE HOME MEDICATION NEW PRESCRIPTION GIVEN PLAVIX 75 MG PO DAILY ACTIVITY TOLERATED AND FACILITY PROTOCOL CALL DR LEVY FOR FURTHER ORDER Referrals: Jon Peralta MD [Staff Provider] - Gris Levy MD [Staff Provider] -
[2018-06-10] MEDS ORDERED: Saccharomyces Boulardi 250 mg Cap PO STA (19:18)
[2018-06-10 20:16] VITALS: BP 115/63; PULSE 70; RESP 18; TEMP 98.5; O2SAT 99
--- NOTE | 2018-06-11 11:27 | CARD ---
APPROVED REPORT Date of service: 06/06/2018 EKG Measurement Heart [id number] <Conclusion> Normal sinus rhythm Right bundle branch block Cannot rule out Inferior infarct, age undetermined Abnormal ECG
--- NOTE | 2018-06-11 11:27 | CARD ---
APPROVED REPORT Date of service: 06/06/2018 EKG Measurement Heart [id number] <Conclusion> Normal sinus rhythm with sinus arrhythmia Right bundle branch block Abnormal ECG
== END 2018-06-10 20:09 | DRG 65 ==
LOC: C.ER 07:53 → C.9E 09:18 → C.5S 11:34
PROVIDERS: ADMIT Internal Medicine; ATTEND Internal Medicine
DX: I63.9 Cerebral infarction, unspecified (principal); G81.91 Hemiplegia, unspecified affecting right dominant side; I25.10 Atherosclerotic heart disease of native coronary artery without angina pectoris; I12.9 Hypertensive chronic kidney disease with stage 1 through stage 4 chronic kidney disease, or unspecified chronic kidney disease; N40.0 Benign prostatic hyperplasia without lower urinary tract symptoms; Z95.0 Presence of cardiac pacemaker; Z95.1 Presence of aortocoronary bypass graft; Z95.810 Presence of automatic (implantable) cardiac defibrillator; Z85.46 Personal history of malignant neoplasm of prostate; E78.5 Hyperlipidemia, unspecified; F17.200 Nicotine dependence, unspecified, uncomplicated; N18.9 Chronic kidney disease, unspecified; R29.810 Facial weakness; I73.9 Peripheral vascular disease, unspecified